=== PATIENT | male | born 1940 | race Caucasian/White ===

== ENCOUNTER 2016-07-03 06:42 | Day surgery (SDC) | payer MEDICARE, BC ==
[2016-07-03] MEDS ORDERED: Lactated Ringers 1,000 ML IV SCH (07:30)
[2016-07-03] MEDS ORDERED: Propofol 200 MG/20 ML SDV ONE (08:20)
[2016-07-03] MEDS ORDERED: fentaNYL 100 MCG/2 ML SDV ONE (08:21)
[2016-07-03 10:31] VITALS: BP 121/70
--- NOTE | 2016-07-04 19:19 | PCM.OPNOTE ---
- General Post-Op/Procedure Note Date of Surgery/Procedure: 07/03/16 Operative Procedure(s): colonoscopy with biopsy Findings: biopsy of polyps at the cecum Pre Op Diagnosis: screening colonoscopy Primary Surgeon: Rajesh Murphy Sr Condition: Good Free Text/Narrative:: Moustapha is a 76-year-old male comes in for a screening colonoscopy. The risks and benefits were explained to him. Anesthesia was given by a nurse clockmaker apprentice. During the procedure use 200 mg of propofol 100 micrograms of fentanyl. The Olympus 180Lscope was used. With a gloved finger in the rectum was examined prostate was nonexistent. The tube was placed into the rectum and advanced under direct vision and we did get to the ileocecal valve. In this area noted all of these were biopsied and pictures were taken. Upon slow retraction of the tube noted no ulceration no abnormality except for small polyp noted at the sigmoid. The tube was removed and the patient tolerated the procedure well. Preop: Screening colonoscopy. Postop: Polyps at the cecum and sigmoid-- biopsy report pending.
== END 2016-07-03 11:00 | disposition home or self-care (01) ==
LOC: JP.SDS 06:42
PROVIDERS: ATTEND Internal Medicine
PROC: 0DBF8ZX Excision of Right Large Intestine, Via Natural or Artificial Opening Endoscopic, Diagnostic (ICD-10-PCS; principal; 2016-07-03)
PROC: 0DBL8ZX Excision of Transverse Colon, Via Natural or Artificial Opening Endoscopic, Diagnostic (ICD-10-PCS; 2016-07-03)
DX: Z12.11 Encounter for screening for malignant neoplasm of colon (principal); D12.3 Benign neoplasm of transverse colon; D12.2 Benign neoplasm of ascending colon
CPT/HCPCS: 45380; J2704; J3010; J7120; 88305

== ENCOUNTER 2018-09-18 14:07 | Emergency (ER) | payer BC, MEDICARE ==
[2018-09-18 14:26] VITALS: BP 112/60
[2018-09-18] MEDS ORDERED: Bacitracin Oint 1 GM U/D Packet TOP ONE (14:35)
--- NOTE | 2018-09-18 14:41 | EDM.PDOC ---
ED HPI GENERAL MEDICAL PROBLEM - General Chief Complaint: Head Injury Stated Complaint: FALL VIA NORTH Time Seen by Provider: 09/18/18 14:25 Source of Information: Reports: Patient, EMS, Family, Old Records, RN History Limitations: Reports: No Limitations - History of Present Illness INITIAL COMMENTS - FREE TEXT/NARRATIVE: 78 yo male with mild dementia who is on warfarin usually uses a walker to get around. Today he tried to use a cane to get from the car to the [employer] and fell backward hitting his head. There was no LOC, neck pain or vomiting. His witnessed the fall and states he is now acting normally for him. Onset: Today Onset Date: 09/18/18 Onset Time: 13:55 Duration: Minutes:, Constant Location: Reports: Head Quality: Reports: Ache Severity: Mild Improves with: Reports: None Worsens with: Reports: None Context: Reports: Trauma Associated Symptoms: Reports: No Other Symptoms Treatments WELDER AND FITTER: Reports: Other (see below) (none) - Related Data Allergies Allergy/AdvReac Type Severity Reaction Status Date / Time rosuvastatin calcium Allergy Cannot Verified 12/27/17 14:08 [From Crestor] Remember Home Meds: Home Meds Aspirin [Ecotrin EC] 325 mg PO DAILY 04/10/15 [History] Cholecalciferol (Vitamin D3) [Vitamin D3] 1,000 unit PO DAILY 04/10/15 [History] Diltiazem [Cardizem] 120 mg PO BID 04/10/15 [History] Furosemide 20 mg PO DAILY 04/10/15 [History] Insulin Glargine,Hum.Rec.Anlog [Lantus Solostar] 30 unit SQ DAILY 04/10/15 [ History] Insulin Lispro [HumaLOG] 14 units SUBCUT TID 04/10/15 [History] Simvastatin [Zocor] 20 mg PO BEDTIME 04/10/15 [History] Spironolact/Hydrochlorothiazid [Spironolactone-HCTZ 25-25] 1 tab PO DAILY [History] Warfarin [Coumadin] 5 mg PO ASDIRECTED 04/10/15 [History] metFORMIN [Glucophage] 850 mg PO BIDMEALS 04/10/15 [History] Metoprolol Tartrate 50 mg PO BID 02/23/18 [History] Nystatin [Nyamyc] 1 dose TOP ASDIRECTED 09/18/18 [History] Oxybutynin Chloride [Oxybutynin Chloride ER] 1 tab PO DAILY 09/18/18 [History] Triamcinolone Acetonide [Triamcinolone Acetonide 0.5%] 1 dose TOP ASDIRECTED [History] Past Medical History HEENT History: Reports: Impaired Vision Cardiovascular History: Reports: CAD, Heart Failure, Pacemaker, Other (See Below ) Other Cardiovascular History: hypotension Gastrointestinal History: Reports: GERD Musculoskeletal History: Reports: Back Pain, Chronic Endocrine/Metabolic History: Reports: Diabetes, Type II, Obesity/BMI 30+ Dermatologic History: Reports: Venous Stasis Dermatitis - Past Surgical History Head Surgeries/Procedures: Reports: None Cardiovascular Surgical History: Reports: Coronary Artery Bypass, Coronary Artery Stent GI Surgical History: Reports: Colonoscopy, Hernia, Inguinal Social & Family History - Tobacco Use Smoking Status *Q: Never Smoker - Caffeine Use Caffeine Use: Reports: Coffee - Recreational Drug Use Recreational Drug Use: No ED ROS GENERAL - Review of Systems Review Of Systems: See Below Constitutional: Reports: No Symptoms HEENT: Reports: No Symptoms Respiratory: Reports: No Symptoms Cardiovascular: Reports: No Symptoms Endocrine: Reports: No Symptoms GI/Abdominal: Reports: No Symptoms : Reports: No Symptoms Musculoskeletal: Reports: No Symptoms Skin: Reports: Wound (T shaped laceration with a small hematoma at the occiput. ) Neurological: Reports: Confusion (not any worse than usual), Headache (mild ), Difficulty Walking (chronic), Gait Disturbance (chronic) Psychiatric: Reports: No Symptoms ED EXAM, HEAD INJURY - Physical Exam Exam: See Below Exam Limited By: No Limitations General Appearance: Alert, WD/WN, No Apparent Distress, Obese Head: Normocephalic, Scalp Lacerations (T shaped at occiput), Scalp Swelling ( minimal), Scalp Hematoma (small at occiput), Scalp Tenderness (mild). No: Scalp Ecchymosis, Active Bleeding, Garnica's Sign, Facial Ecchymosis, Facial Lacerations, Facial Swelling, Sinus Tenderness, Facial Tenderness, Raccoon Eyes Nexus Criteria: No: Posterior, Midline Cervical Tenderness, Evidence of Intoxication, Focal Neurological Deficit Eyes: Bilateral Eye: Normal Inspection, PERRL Ears: Normal External Exam, Normal Canal, Hearing Grossly Normal, Normal TMs Nose: Normal Inspection, No Blood Throat/Mouth: Normal Inspection, Normal Lips, Normal Oropharynx, Normal Voice, No Airway Compromise Neck: Non-Tender, Full Range of Motion Respiratory: No Respiratory Distress, Lungs Clear, Normal Breath Sounds, No Accessory Muscle Use Cardiovascular: Regular Rate, Rhythm, No Edema GI/Abdominal Exam: Normal Bowel Sounds, Soft, Non-Tender, No Distention Back Exam: Normal Inspection Extremities: Normal Inspection, Normal Range of Motion, Non-Tender, No Pedal Edema Neurologic: fur glosser II-XII nml As Tested, No Motor/Sensory Deficits, Alert, Normal Mood/Affect, Oriented x 3 Skin: Normal Color, Warm/Dry, Other (No currrent occipital bleeding. Wound edges well approximated. ) - Michelle Coma Score Best Eye Response (Michelle): (4) Open Spontaneously Best Verbal Response ([place]): (5) Oriented Best Motor Response ([place]): (6) Obeys Commands Michelle Total: 15 Course - Vital Signs Text/Narrative:: Wound cleaned by nursing and a dressing applied. Adacel IM given. Last Recorded V/S: Last Vital Signs Temp 36.3 C 09/18/18 14:28 Pulse 72 09/18/18 14:28 Resp 14 09/18/18 14:28 BP 112/60 09/18/18 14:28 Pulse Ox 93 L 09/18/18 14:28 - Orders/Labs/Meds Labs: Laboratory Tests 09/18/18 Range/Units 14:09 PT 34.4 H (9.5-12.0) sec INR 3.35 H (0.80-1.20) Meds: Medications Discontinued Medications Generic Name Dose Route Start Last Admin Trade Name Rafaelq PRN Reason Stop Dose Admin Bacitracin 1 dose 09/18/18 14:35 Bacitracin Oint 1 Gm TOP 09/18/18 14:36 ONETIME ONE Departure - Departure Time of Disposition: 15:05 Disposition: Home, Self-Care 01 Condition: Fair Clinical Impression: Fall in elderly patient Occipital scalp laceration Qualifiers: Encounter type: initial encounter Qualified Code(s): S01.01XA - Laceration without foreign body of scalp, initial encounter - Discharge Information *PRESCRIPTION DRUG MONITORING PROGRAM REVIEWED*: No *COPY OF PRESCRIPTION DRUG MONITORING REPORT IN PATIENT MELODY: No Referrals: Rajesh Mruphy Sr, MD [Primary Care Provider] - Forms: ED Department Discharge Additional Instructions: Clean wound twice daily with 1/2 water and 1/2 peroxide. Dry. Apply antibiotic ointment and a new dressing. Recheck as needed.
== END 2018-09-18 15:17 | disposition home or self-care (01) ==
LOC: JP.ED 14:07
DX: S01.01XA Laceration without foreign body of scalp, initial encounter (principal); E11.9 Type 2 diabetes mellitus without complications; I50.9 Heart failure, unspecified; K21.9 Gastro-esophageal reflux disease without esophagitis; Z79.82 Long term (current) use of aspirin; Z79.01 Long term (current) use of anticoagulants; Z79.899 Other long term (current) drug therapy; Z79.4 Long term (current) use of insulin; W19.XXXA Unspecified fall, initial encounter
CPT/HCPCS: 36415; 85610; 99283

== ENCOUNTER 2019-05-06 14:51 | Emergency (ER) | payer MEDICARE ==
[2019-05-06] MEDS ORDERED: Acetaminophen 325 MG Tab PO ONE (15:45)
--- NOTE | 2019-05-06 15:48 | EDM.PDOC ---
ED HPI GENERAL MEDICAL PROBLEM - General Chief Complaint: General Stated Complaint: HEART ISSUES Time Seen by Provider: 05/06/19 15:39 Source of Information: Reports: Patient, Family, RN Notes Reviewed History Limitations: Reports: No Limitations - History of Present Illness INITIAL COMMENTS - FREE TEXT/NARRATIVE: 79-year-old gentleman presents the emergency department a complaint of right shoulder pain, he does a history of diabetes mellitus type 2 coronary artery disease and history of CVA with right sided foot weakness he does have long- term care at home. He was trying to get into the shower with the help of the home health aide when he was reaching for the grab bar missed and then fell to the ground hitting his right shoulder. He denies any loss of consciousness or head injury denies pain anywhere else denies shortness of breath or chest pain. EMS initially arrived evaluation felt he was somewhat hypotensive however his blood pressure did respond by the time he arrives at the emergency department, he has a paced rhythm Right Shoulder Pain Score (Numeric/FACES): 2 - Related Data Allergies Allergy/AdvReac Type Severity Reaction Status Date / Time rosuvastatin calcium Allergy Cannot Verified 05/06/19 15:04 [From Crestid] Remember Home Meds: Home Meds Cholecalciferol (Vitamin D3) [Vitamin D3] 1,000 unit PO DAILY 04/10/15 [History] Furosemide 20 mg PO DAILY 04/10/15 [History] Simvastatin [Zocor] 20 mg PO BEDTIME 04/10/15 [History] Spironolact/Hydrochlorothiazid [Spironolactone-HCTZ 25-25] 1 tab PO DAILY [History] metFORMIN [Glucophage] 850 mg PO BIDMEALS 04/10/15 [History] Metoprolol Tartrate 25 mg PO BID 02/23/18 [History] Apixaban [Eliquis] 1 tab PO BID 05/06/19 [History] Insulin Glargine,Hum.Rec.Anlog [Lantus Solostar] 36 units SUBCUT BEDTIME [History] Insulin Lispro [HumaLOG] 1 unit SUBCUT ASDIRECTED 05/06/19 [History] Past Medical History HEENT History: Reports: Impaired Vision Cardiovascular History: Reports: CAD, Heart Failure, Pacemaker, Other (See Below ) Other Cardiovascular History: hypotension Gastrointestinal History: Reports: GERD Musculoskeletal History: Reports: Back Pain, Chronic Neurological History: Reports: CVA (Deficit right side and speech) Endocrine/Metabolic History: Reports: Diabetes, Type II, Obesity/BMI 30+ Dermatologic History: Reports: Venous Stasis Dermatitis - Past Surgical History Cardiovascular Surgical History: Reports: Coronary Artery Bypass, Coronary Artery Stent GI Surgical History: Reports: Colonoscopy, Hernia, Inguinal Social & Family History - Tobacco Use Smoking Status *Q: Unknown Ever Smoked - Caffeine Use Caffeine Use: Reports: Coffee - Recreational Drug Use Recreational Drug Use: No ED ROS GENERAL - Review of Systems Review Of Systems: See Below Constitutional: Reports: No Symptoms HEENT: Reports: No Symptoms Respiratory: Reports: No Symptoms Cardiovascular: Reports: No Symptoms GI/Abdominal: Reports: No Symptoms Musculoskeletal: Reports: Shoulder Pain Neurological: Reports: No Symptoms ED EXAM, GENERAL - Physical Exam Exam: See Below Free Text/Narrative:: Examination of the right shoulder I do not appreciate any erythema there is no edema there is no bruising noted radial pulses +2 he does complain of tenderness with passive abduction of the right shoulder I cannot elicit any tenderness to point palpation Exam Limited By: No Limitations General Appearance: Alert, WD/WN, No Apparent Distress Respiratory/Chest: No Respiratory Distress, Lungs Clear, Normal Breath Sounds, No Accessory Muscle Use, Chest Non-Tender Cardiovascular: Regular Rate, Rhythm, No Murmur GI/Abdominal: Soft, Non-Tender Course - Vital Signs Last Recorded V/S: Last Vital Signs Temp 94.9 F L 05/06/19 14:55 Pulse 83 05/06/19 15:48 Resp 24 H 05/06/19 15:48 BP 123/48 L 05/06/19 15:48 Pulse Ox 94 L 05/06/19 15:48 - Orders/Labs/Meds Orders: Active Orders 24 hr Category Date Time Status Shoulder Comp Rt [CR] Stat Exams 05/06/19 15:45 Ordered Meds: Medications Discontinued Medications Generic Name Dose Route Start Last Admin Trade Name Freq PRN Reason Stop Dose Admin Acetaminophen 650 mg 05/06/19 15:45 05/06/19 16:31 Tylenol PO 05/06/19 15:46 650 mg NOW ONE Administration Departure - Departure Time of Disposition: 16:55 Disposition: Home, Self-Care 01 Condition: Fair Clinical Impression: Contusion of right shoulder Qualifiers: Encounter type: initial encounter Qualified Code(s): S40.011A - Contusion of right shoulder, initial encounter - Discharge Information Referrals: PCP,None [Primary Care Provider] - Forms: ED Department Discharge Additional Instructions: Use Tylenol or Motrin as needed for pain control use hydrocodone for breakthrough pain, please followup with your primary care provider in 3-5 days if not better, please call return to the emergency department with worsening of symptoms. Sepsis Event Note - Evaluation Sepsis Screening Result: No Definite Risk - Focused Exam Vital Signs: Vital Signs Temp Pulse Resp BP Pulse Ox 05/06/19 15:48 83 24 H 123/48 L 94 L 05/06/19 15:16 77 19 123/53 L 95 05/06/19 14:55 94.9 F L 103 H 26 H 128/52 L 96 05/06/19 14:52 94.9 F L 103 H 26 H 128/52 L 96 Date Exam was Performed: 05/06/19 Time Exam was Performed: 16:54 - My Orders Last 24 Hours: My Active Orders 05/06/19 15:45 Shoulder Comp Rt [CR] Stat - Assessment/Plan Last 24 Hours: My Active Orders 05/06/19 15:45 Shoulder Comp Rt [CR] Stat Plan: Assessment Acuity = acute Site and laterality = right shoulder contusion Etiology = secondary to fall Manifestations = none Location of injury = Home Lab values = shoulder x-ray I did review films myself I cannot appreciate any acute process, the official read from radiology is pending Plan I did review x-ray films with him he had good improvement with the Tylenol provided discharge home with hydrocodone 5/325 1 tab p.o. 3 times daily PRN total #10 have him follow-up with his primary care in the next 3 to 5 days for reevaluation This note was dictated using [employer] voice recognition software please call with any questions on syntax or grammar.
[2019-05-06 15:49] VITALS: BP 123/48; PULSE 83
--- NOTE | 2019-05-07 08:44 | CR ---
Shoulder Comp Rt CLINICAL HISTORY: Pain, fall FINDINGS: There is no acute fracture or dislocation in the right shoulder. There is some spurring at the AC joint. There is some osteoarthritic change in the glenohumeral joint. Impression: No fracture or dislocation Osteoarthritic change
== END 2019-05-06 17:28 | disposition home or self-care (01) ==
LOC: JP.ED 14:51
DX: S40.011A Contusion of right shoulder, initial encounter (principal); I25.10 Atherosclerotic heart disease of native coronary artery without angina pectoris; I50.9 Heart failure, unspecified; E11.9 Type 2 diabetes mellitus without complications; E66.9 Obesity, unspecified; I69.341 Monoplegia of lower limb following cerebral infarction affecting right dominant side; I69.328 Other speech and language deficits following cerebral infarction; Z79.4 Long term (current) use of insulin; Z79.899 Other long term (current) drug therapy; W01.10XA Fall on same level from slipping, tripping and stumbling with subsequent striking against unspecified object, initial encounter; Y92.009 Unspecified place in unspecified non-institutional (private) residence as the place of occurrence of the external cause
CPT/HCPCS: 73030; 99284; A9270; 99283

== ENCOUNTER 2019-06-09 16:29 | Observation (INO) | payer MEDICARE ==
--- NOTE | 2019-06-09 16:55 | CRLCT ---
INDICATION: Fall, head trauma TECHNIQUE: Head CT without contrast. COMPARISON: February 23, 2018 FINDINGS: CSF spaces: Within normal limits for age. Brain parenchyma: There are nonspecific low attenuation white matter changes consistent with chronic microvascular disease. No sign of mass, hemorrhage, or midline shift. Old encephalomalacia in the left parietal occipital region. Skull base and calvarium: The visualized paranasal sinuses and mastoid air cells demonstrate no acute or significant findings. The visualized orbits are grossly unremarkable. No skull fractures. There is intracranial atherosclerosis. IMPRESSION: 1. No acute findings. 2. Nonspecific white matter disease, typical of chronic microvascular disease. Please note that all CT scans at this facility use dose modulation, iterative reconstruction, and/or weight-based dosing when appropriate to reduce radiation dose to as low as reasonably achievable. Dictated by Edyta Handy MD @ Jun 09 2019 4:51PM Signed by Dr. Edyta Handy @ Jun 09 2019 4:54PM
--- NOTE | 2019-06-09 18:00 | EDM.PDOC ---
ED HPI GENERAL MEDICAL PROBLEM - General Chief Complaint: Neuro Symptoms/Deficits Stated Complaint: ACCIDENT VIA NORTH Time Seen by Provider: 06/09/19 16:55 Source of Information: Reports: Patient, EMS, Family History Limitations: Reports: No Limitations - History of Present Illness INITIAL COMMENTS - FREE TEXT/NARRATIVE: pt arrived with a history of multiple falls. He fell today and there was concern because he was started on elequist 2 weeks ago. He has had a previous stroke that happened avout 1 year sgo. he was affected on the left side. Pt was noted to have a facial droop and he was slurring his speech. He always has some slurring but this is worse. Duration: Hour(s): Location: Reports: Head Associated Symptoms: Reports: Headaches, Other ( slurrd speech and a facial droop. ) - Related Data Allergies Allergy/AdvReac Type Severity Reaction Status Date / Time rosuvastatin calcium Allergy Cannot Verified 05/06/19 15:04 [From [facility]] Remember Home Meds: Home Meds Cholecalciferol (Vitamin D3) [Vitamin D3] 1,000 unit PO DAILY 04/10/15 [History] Furosemide 20 mg PO DAILY 04/10/15 [History] Simvastatin [Zocor] 20 mg PO BEDTIME 04/10/15 [History] Spironolact/Hydrochlorothiazid [Spironolactone-HCTZ 25-25] 1 tab PO DAILY [History] metFORMIN [Glucophage] 850 mg PO BIDMEALS 04/10/15 [History] Metoprolol Tartrate 25 mg PO BID 02/23/18 [History] Apixaban [Eliquis] 1 tab PO BID 05/06/19 [History] Insulin Glargine,Hum.Rec.Anlog [Lantus Solostar] 36 units SUBCUT BEDTIME [History] Insulin Lispro [HumaLOG] 1 unit SUBCUT ASDIRECTED 05/06/19 [History] Past Medical History HEENT History: Reports: Impaired Vision Cardiovascular History: Reports: CAD, Heart Failure, Pacemaker, Other (See Below ) Other Cardiovascular History: hypotension Gastrointestinal History: Reports: GERD Musculoskeletal History: Reports: Back Pain, Chronic Neurological History: Reports: CVA Endocrine/Metabolic History: Reports: Diabetes, Type II, Obesity/BMI 30+ Dermatologic History: Reports: Venous Stasis Dermatitis - Past Surgical History Cardiovascular Surgical History: Reports: Coronary Artery Bypass, Coronary Artery Stent GI Surgical History: Reports: Colonoscopy, Hernia, Inguinal Social & Family History - Tobacco Use Smoking Status *Q: Never Smoker - Caffeine Use Caffeine Use: Reports: Coffee, Soda - Recreational Drug Use Recreational Drug Use: No ED ROS GENERAL - Review of Systems Review Of Systems: See Below Constitutional: Reports: No Symptoms HEENT: Reports: No Symptoms Respiratory: Reports: Cough Cardiovascular: Reports: No Symptoms GI/Abdominal: Reports: No Symptoms : Reports: No Symptoms Musculoskeletal: Reports: No Symptoms Skin: Reports: No Symptoms Neurological: Reports: Other (slurred speech and a fscial droop. ) Psychiatric: Reports: No Symptoms - Physical Exam Exam: See Below Text/Narrative:: pt arrived with a history of a fall and after the fall his speech was slurred and he had a facial droop. He has had a previou stroke which caused rt sided weakness. He was switched to elequist recently. Exam Limited By: No Limitations General Appearance: Alert, No Apparent Distress, Anxious, Other (pupils are equal and reactive. ) Ears: Normal TMs Nose: Normal Inspection Throat/Mouth: Normal Inspection Head Exam: Atraumatic, Other ( there is no aparicio or hematoma on the head) Neck: Normal Inspection Respiratory/Chest: No Respiratory Distress Cardiovascular: Regular Rate, Rhythm GI/Abdominal: Soft, Non-Tender (Male) Exam: Normal Inspection Rectal (Males) Exam: Deferred Neuro Exam (Abbreviated): Alert, Oriented, Normal Cognition, Other ( slurred speech and possible facial dropping) Course - Vital Signs Last Recorded V/S: Last Vital Signs Temp 36.6 C 06/10/19 03:00 Pulse 70 06/10/19 03:00 Resp 18 06/10/19 03:00 BP 129/60 06/10/19 03:00 Pulse Ox 98 06/10/19 03:00 - Orders/Labs/Meds Orders: Active Orders 24 hr Category Date Time Status UA W/MICROSCOPIC [URIN] Urgent Lab 06/09/19 16:34 Ordered Medication Orders Acetaminophen (Tylenol) 650 mg PO Q4H PRN PRN Reason: Pain (Mild 1-3)/fever Apixaban (Eliquis) 2.5 mg PO BID [place] Last Admin: 06/09/19 22:18 Dose: 2.5 mg Dextrose (Glutose 15) 15 gm PO ONETIME PRN PRN Reason: Hypoglycemia Dextrose/Water (Dextrose 50% In Water) 50 ml IV ONETIME PRN PRN Reason: Hypoglycemia Furosemide (Lasix) 20 mg PO DAILY [facility] Hydrochlorothiazide (Hydrochlorothiazide) 25 mg PO DAILY [facility] Sodium Chloride (Normal Saline) 1,000 mls @ 75 mls/hr IV ASDIRECTED [facility] Last Admin: 06/10/19 00:36 Dose: 75 mls/hr Insulin Glargine (Lantus Solostar) 36 units SUBCUT BEDTIME [facility] Last Admin: 06/09/19 22:18 Dose: 36 units Insulin Human Lispro (Humalog) 0 unit SUBCUT QIDACANDBED [facility]; Protocol Last Admin: 06/09/19 22:09 Dose: Not Given Metformin HCl (Glucophage) 850 mg PO BIDMEALS [facility] Metoprolol Tartrate (Lopressor) 25 mg PO BID [facility] Last Admin: 06/09/19 22:10 Dose: 25 mg Ondansetron HCl (Zofran) 4 mg IV Q4H PRN PRN Reason: Nausea/Vomiting Polyethylene Glycol (Miralax) 17 gm PO DAILY PRN PRN Reason: Constipation Simvastatin (Zocor) 20 mg PO BEDTIME [facility] Last Admin: 06/09/19 22:10 Dose: 20 mg Sodium Chloride (Saline Flush) 10 ml FLUSH ASDIRECTED PRN PRN Reason: Keep Vein Open Spironolactone (Aldactone) 25 mg PO DAILY [facility] Labs: Laboratory Tests 06/09/19 06/09/19 Range/Units 16:47 16:47 WBC 10.5 (4.5-11.0) K/uL RBC 5.66 (4.30-5.90) M/uL Hgb 15.6 H (12.0-15.0) g/dL Hct 48.5 (40.0-54.0) % MCV 86 (80-98) fL MCH 28 (27-31) pg MCHC 32 (32-36) % Plt Count 232 (150-400) K/uL Neut % (Auto) 71 H (36-66) % Lymph % (Auto) 18 L (24-44) % [place] % (Auto) 8 H (2-6) % Eos % (Auto) 2 (2-4) % Baso % (Auto) 0 (0-1) % Sodium 138 L (140-148) mmol/L Potassium 3.7 (3.6-5.2) mmol/L Chloride 100 (100-108) mmol/L Carbon Dioxide 30 (21-32) mmol/L Anion Gap 11.7 (5.0-14.0) mmol/L BUN 19 H (7-18) mg/dL Creatinine 1.3 (0.8-1.3) mg/dL Est Cr Clr Drug Dosing 44.58 mL/min Estimated GFR (MDRD) 53 L (>60) Glucose 159 H (74-106) mg/dL Calcium 9.3 (8.5-10.1) mg/dL Total Bilirubin 0.5 (0.2-1.0) mg/dL AST 17 (15-37) U/L ALT 14 (12-78) U/L Alkaline Phosphatase 71 (46-116) U/L Total Protein 7.2 (6.4-8.2) g/dL Albumin 3.4 (3.4-5.0) g/dL Globulin 3.8 H (2.3-3.5) g/dL Albumin/Globulin Ratio 0.9 L (1.2-2.2) Meds: Medications Generic Name Dose Route Start Last Admin Trade Name Freq PRN Reason Stop Dose Admin Acetaminophen 650 mg 06/09/19 19:27 Tylenol PO Q4H PRN Pain (Mild 1-3)/fever Apixaban 2.5 mg 06/09/19 21:00 06/09/19 22:18 Eliquis PO 2.5 mg BID [place] Administration Dextrose 15 gm 06/09/19 19:27 Glutose 15 PO ONETIME PRN Hypoglycemia Dextrose/Water 50 ml 06/09/19 19:27 Dextrose 50% In Water IV ONETIME PRN Hypoglycemia Furosemide 20 mg 06/10/19 09:00 Lasix PO DAILY [place] Hydrochlorothiazide 25 mg 06/10/19 09:00 Hydrochlorothiazide PO DAILY [place] Sodium Chloride 1,000 mls @ 75 mls/hr 06/09/19 19:27 06/10/19 00:36 Normal Saline IV 75 mls/hr ASDIRECTED [place] Administration Insulin Glargine 36 units 06/09/19 21:00 06/09/19 22:18 Lantus Solostar SUBCUT 36 units BEDTIME [place] Administration Insulin Human Lispro 0 unit 06/09/19 20:00 06/09/19 22:09 Humalog SUBCUT Not Given QIDACANDBED [facility] Protocol Metformin HCl 850 mg 06/10/19 08:00 Glucophage PO BIDMEALS [facility] Metoprolol Tartrate 25 mg 06/09/19 21:00 06/09/19 22:10 Lopressor PO 25 mg BID [place] Administration Ondansetron HCl 4 mg 06/09/19 19:27 Zofran IV Q4H PRN Nausea/Vomiting Polyethylene Glycol 17 gm 06/09/19 19:27 Miralax PO DAILY PRN Constipation Simvastatin 20 mg 06/09/19 21:00 06/09/19 22:10 Zocor PO 20 mg BEDTIME [place] Administration Sodium Chloride 10 ml 06/09/19 19:27 Saline Flush FLUSH ASDIRECTED PRN Keep Vein Open Spironolactone 25 mg 06/10/19 09:00 Aldactone PO DAILY [place] Discontinued Medications Generic Name Dose Route Start Last Admin Trade Name Rafaelq PRN Reason Stop Dose Admin Non-Formulary Medication 1 tab 06/10/19 09:00 Spironolact/Hydrochlorothiazid [Spironolactone-Hctz 25-25] PO DAILY [place] - Re-Assessments/Exams Free Text/Narrative Re-Assessment/Exam: 06/10/19 07:22 cat scan of the head was neg for acute findings. His lab work did not show any marked changes. 06/10/19 07:22 Departure - Departure Time of Disposition: 06:00 Disposition: Admitted As Inpatient 66 Condition: Fair Clinical Impression: Slurring of speech, Facial droop, Cerebral arteriosclerosis with history of previous cerebrovascular accident - Discharge Information Sepsis Event Note - Evaluation Sepsis Screening Result: No Definite Risk - Focused Exam Date Exam was Performed: 06/10/19 Time Exam was Performed: 07:24 - My Orders Last 24 Hours: My Active Orders 06/09/19 16:34 UA W/MICROSCOPIC [URIN] Urgent - Assessment/Plan Last 24 Hours: My Active Orders 06/09/19 16:34 UA W/MICROSCOPIC [URIN] Urgent
--- NOTE | 2019-06-09 18:18 | PCM.HP.2 ---
H&P History of Present Illness - General Date of Service: 06/09/19 Admit Problem/Dx: Admission Diagnosis/Problem Admission Diagnosis/Problem Weakness Source of Information: Patient, Family, Provider, RN Notes Reviewed History Limitations: Reports: No Limitations - History of Present Illness Initial Comments - Free Text/Narative: Mr. Rushing is a 79-year-old gentleman who is admitted to observation status through the emergency department after experiencing transient right leg weakness and a fall earlier today. He has a known history of cerebrovascular disease and is status post previous CVA with residual right leg weakness. He told his earlier today that he was unable to feel his feet and when he attempted to get up midafternoon his right leg would not work as it usually does and he experienced a fall. CT scan of the head without contrast in the emergency department shows no acute abnormalities. On motor strength testing he has very mild weakness in the right leg which he says is baseline. No other weakness or cranial nerve abnormalities identified. No evidence of underlying infection or significant metabolic abnormalities. - Related Data Allergies/Adverse Reactions: Allergies Allergy/AdvReac Type Severity Reaction Status Date / Time rosuvastatin calcium Allergy Cannot Verified 05/06/19 15:04 [From Crestor] Remember Home Medications: Home Meds Cholecalciferol (Vitamin D3) [Vitamin D3] 1,000 unit PO DAILY 04/10/15 [History] Furosemide 20 mg PO DAILY 04/10/15 [History] Simvastatin [Zocor] 20 mg PO BEDTIME 04/10/15 [History] Spironolact/Hydrochlorothiazid [Spironolactone-HCTZ 25-25] 1 tab PO DAILY [History] metFORMIN [Glucophage] 850 mg PO BIDMEALS 04/10/15 [History] Metoprolol Tartrate 25 mg PO BID 02/23/18 [History] Apixaban [Eliquis] 1 tab PO BID 05/06/19 [History] Insulin Glargine,Hum.Rec.Anlog [Lantus Solostar] 36 units SUBCUT BEDTIME [History] Insulin Lispro [HumaLOG] 1 unit SUBCUT ASDIRECTED 05/06/19 [History] Past Medical History HEENT History: Reports: Impaired Vision Cardiovascular History: Reports: CAD, Heart Failure, Pacemaker, Other (See Below ) Other Cardiovascular History: hypotension Gastrointestinal History: Reports: GERD Musculoskeletal History: Reports: Back Pain, Chronic Neurological History: Reports: CVA Endocrine/Metabolic History: Reports: Diabetes, Type II, Obesity/BMI 30+ Dermatologic History: Reports: Venous Stasis Dermatitis - Past Surgical History Cardiovascular Surgical History: Reports: Coronary Artery Bypass, Coronary Artery Stent GI Surgical History: Reports: Colonoscopy, Hernia, Inguinal Social & Family History - Tobacco Use Smoking Status *Q: Never Smoker - Caffeine Use Caffeine Use: Reports: Coffee, Soda - Recreational Drug Use Recreational Drug Use: No H&P Review of Systems - Review of Systems: Review Of Systems: See Below General: Reports: Weakness. Denies: Fever, Chills, Malaise HEENT: Reports: No Symptoms Pulmonary: Reports: No Symptoms Cardiovascular: Reports: No Symptoms Gastrointestinal: Reports: No Symptoms Genitourinary: Reports: No Symptoms Musculoskeletal: Reports: No Symptoms Skin: Reports: No Symptoms Psychiatric: Reports: No Symptoms Neurological: Reports: Pre-Existing Deficit, Difficulty Walking, Weakness ( Episode of increased right leg weakness occurring earlier this afternoon). Denies: Confusion, Dizziness, Headache, Numbness, Paresthesia, Trouble Speaking , Change in Speech Hematologic/Lymphatic: Reports: No Symptoms Immunologic: Reports: No Symptoms Exam - Exam Exam: See Below - Vital Signs Vital Signs: Last Vital Signs Temp 96.8 F L 06/09/19 16:47 Pulse 78 06/09/19 17:41 Resp 20 06/09/19 17:41 BP 139/75 06/09/19 17:41 Pulse Ox 97 06/09/19 17:41 Weight: 250 lb - Exam Quality Assessment: DVT Prophylaxis General: Alert, Oriented, Cooperative HEENT: Conjunctiva Clear, Hearing Intact, Mucosa Moist & [place], Normal Nasal Septum, Posterior Pharynx Clear, Pupils Equal Neck: Supple, Trachea Midline, +2 Carotid Pulse wo Bruit Lungs: Clear to Auscultation, Normal Respiratory Effort Cardiovascular: Regular Rate, Normal S1, Normal S2, Irregular Rhythm. No: Systolic Murmur, Diastolic Murmur GI/Abdominal Exam: Soft, Non-Tender, No Organomegaly, No Distention Extremities: Non-Tender, Pedal Edema Skin: Warm, Dry, Intact Neurological: Cranial Nerves Intact, Normal Speech, Normal Tone, Sensation Intact, Focal Deficit (Mild right lower extremity weakness which is chronic) Neuro Extensive - Mental Status: Alert, Oriented x3, Normal Mood/Affect, Normal Cognition, Memory Intact - Patient Data Lab Results Last 24 hrs: Laboratory Results - last 24 hr 06/09/19 06/09/19 Range/Units 16:47 16:47 WBC 10.5 (4.5-11.0) K/uL RBC 5.66 (4.30-5.90) M/uL Hgb 15.6 H (12.0-15.0) g/dL Hct 48.5 (40.0-54.0) % MCV 86 (80-98) fL MCH 28 (27-31) pg MCHC 32 (32-36) % Plt Count 232 (150-400) K/uL Neut % (Auto) 71 H (36-66) % Lymph % (Auto) 18 L (24-44) % [place] % (Auto) 8 H (2-6) % Eos % (Auto) 2 (2-4) % Baso % (Auto) 0 (0-1) % Sodium 138 L (140-148) mmol/L Potassium 3.7 (3.6-5.2) mmol/L Chloride 100 (100-108) mmol/L Carbon Dioxide 30 (21-32) mmol/L Anion Gap 11.7 (5.0-14.0) mmol/L BUN 19 H (7-18) mg/dL Creatinine 1.3 (0.8-1.3) mg/dL Est Cr Clr Drug Dosing 44.58 mL/min Estimated GFR (MDRD) 53 L (>60) Glucose 159 H (74-106) mg/dL Calcium 9.3 (8.5-10.1) mg/dL Total Bilirubin 0.5 (0.2-1.0) mg/dL AST 17 (15-37) U/L ALT 14 (12-78) U/L Alkaline Phosphatase 71 (46-116) U/L Total Protein 7.2 (6.4-8.2) g/dL Albumin 3.4 (3.4-5.0) g/dL Globulin 3.8 H (2.3-3.5) g/dL Albumin/Globulin Ratio 0.9 L (1.2-2.2) Result Diagrams: 06/09/19 16:47 06/09/19 16:47 Sepsis Event Note - Evaluation Sepsis Screening Result: No Definite Risk - Focused Exam Vital Signs: Vital Signs Temp Pulse Resp BP Pulse Ox 06/09/19 17:41 78 20 139/75 97 06/09/19 17:05 76 13 139/70 97 06/09/19 16:47 96.8 F L 83 24 H 127/74 95 06/09/19 16:41 96.8 F L 83 24 H 127/74 95 Date Exam was Performed: 06/09/19 Time Exam was Performed: 18:11 *Q Meaningful Use (ADM) - VTE *Q VTE Pharmacological Contraindications *Q: High INR Value - VTE Risk Assess *Q Each Risk Factor Represents 1 Point: Obesity ( BMI > 25 kg/m2) Total Score 1 Point Risk Factors: 1 Each Risk Factor Represents 2 Points: None Total Score 2 Point Risk Factors: 0 Each Risk Factor Represents 3 Points: Age 75 Years or Greater Total Score 3 Point Risk Factors: 3 Each Risk Factor Represents 5 Points: None Total Score 5 Point Risk Factors: 0 Venous Thromboembolism Risk Factor Score *Q: 4 Problem List Initiated/Reviewed/Updated: Yes Orders Last 24hrs: Active Orders 24 hr Category Date Time Status Patient Status Manage Transfer [TRANSFER] Routine ADT 06/09/19 18:02 Ordered UA W/MICROSCOPIC [URIN] Urgent Lab 06/09/19 16:34 Ordered Resuscitation Status Routine Resus Stat 06/09/19 18:04 Ordered Assessment/Plan Comment:: ASSESSMENT AND PLAN TIA WITH TRANSIENT RIGHT LEG WEAKNESS-previous left CVA with residual right leg weakness. Increased right leg weakness earlier this afternoon causing a fall. CT scan of the head without contrast shows no acute abnormalities specifically no bleed. Neurologic examination at this time is back to baseline. -IV fluids for hydration -Neurochecks every 4 hours -Brain MRI with contrast and MRA of the head in a.m. -Physical therapy consult in a.m. TYPE 2 DIABETES MELLITUS -Continue usual dose of long-acting insulin and metformin -4 times daily glucometers -Low-dose sliding scale Humalog MAINTENANCE ISSUES -DVT prophylaxis; current therapy with Eliquis should provide adequate DVT prophylaxis -GI prophylaxis; not indicated -Olja catheter; not indicated -Nutrition; consistent carb diet -Nicotine dependence; not required CODE STATUS-FULL CODE ADMISSION STATUS-this patient will be admitted to observation status, expect no more than a one night hospital stay for evaluation and management of problems as outlined above. DISPOSITION-anticipate discharge to home after the hospital stay. PRIMARY CARE PROVIDER-Dr. Armando Murphy - Mortality Measure Prognosis:: Good
[2019-06-09] MEDS ORDERED: Sodium Chloride 0.9% 1,000 ML IV SCH (19:27)
[2019-06-09] MEDS ORDERED: Sodium Chloride 0.9% 10 ML Syringe FLUSH PRN (19:27)
[2019-06-09] MEDS ORDERED: Polyethylene Glycol 3350 Powder 17 GM Packet PO PRN (19:27)
[2019-06-09] MEDS ORDERED: Acetaminophen 325 MG Tab PO PRN (19:27)
[2019-06-09] MEDS ORDERED: 50% Dextrose in Water 50 ML Syringe IV PRN (19:27)
[2019-06-09] MEDS ORDERED: Glucose Gel 15 GM in 37.5 GM Tube PO PRN (19:27)
[2019-06-09] MEDS ORDERED: Ondansetron 4 MG/2 ML SDV IV PRN (19:27)
[2019-06-09] MEDS ORDERED: Insulin Glargine,Human Rec. Analog 100 Units/ML 3 ML Pen SUBCUT SCH (21:00)
[2019-06-09] MEDS ORDERED: Metoprolol Tartrate 25 MG Tab PO SCH (21:00)
[2019-06-09] MEDS ORDERED: Apixaban 2.5 MG Tab PO SCH (21:00)
[2019-06-09] MEDS ORDERED: Simvastatin 20 MG Tab PO SCH (21:00)
[2019-06-09] MEDS: Insulin Lispro 100 Unit/ML 3 ML KwikPen SUBCUT SCH (22:09)
[2019-06-10] MEDS ORDERED: METFORMIN 850 MG PO SCH (08:00)
[2019-06-10] MEDS: Insulin Lispro 100 Unit/ML 3 ML KwikPen SUBCUT SCH ×2 (08:51→13:35)
[2019-06-10] MEDS ORDERED: Hydrochlorothiazide 25 MG Tab PO SCH (09:00)
[2019-06-10] MEDS ORDERED: Spironolactone 25 MG Tab PO SCH (09:00)
[2019-06-10] MEDS ORDERED: Furosemide 20 MG Tab (PTOM) PO SCH (09:00)
[2019-06-10] MEDS ORDERED: Metoprolol Tartrate 50 MG Tab (PTOM) PO SCH (10:00)
[2019-06-10] MEDS ORDERED: Apixaban 2.5 MG Tab (PTOM) PO SCH (10:00)
[2019-06-10] MEDS ORDERED: HYDROCHLOROTHIAZIDE PO SCH (10:00)
[2019-06-10] MEDS ORDERED: SPIRONOLACTONE PO SCH (10:00)
[2019-06-10] MEDS ORDERED: Cholecalciferol (Vitamin D3) 25 MCG Tab (PTOM) PO SCH (10:15)
[2019-06-10 11:02] VITALS: BP 118/57; PULSE 71
[2019-06-10] MEDS ORDERED: Sodium Chloride 0.9% 10 ML Syringe FLUSH ONE (12:42)
[2019-06-10] MEDS ORDERED: Iopamidol 755 Mg/ML 100 ML Bottle IV SCH (12:45)
[2019-06-10] MEDS ORDERED: Sodium Chloride 0.9% 100 ML IV SCH (12:45)
--- NOTE | 2019-06-10 14:45 | PCM.DCSUM1 ---
Discharge Summary - Hospital Course Brief History: Mr. Rushing is a 79-year-old gentleman who was admitted through the emergency department observation status for further evaluation of transient right leg weakness. - Discharge Data Discharge Date: 06/10/19 Discharge Disposition: Home, W Home Health Agency 06 Condition: Good - Referral to Home Health Date of Face to Face Encounter: 06/10/19 Reason for Homebound Status: Weakness, history of previous CVA Primary Care Physician: Rajesh Murphy Sr, MD Skilled Need: Home physical therapy and Occupational Therapy - Discharge Diagnosis/Problem(s) (1) Cerebral arteriosclerosis with history of previous cerebrovascular accident SNOMED Code(s): 39424153 ICD Code: I67.2 - CEREBRAL ATHEROSCLEROSIS; Z86.73 - PRSNL HX OF TIA (TIA), AND CEREB INFRC W/O RESID DEFICITS Status: Acute Current Visit: Yes (2) Type 2 diabetes mellitus SNOMED Code(s): 48299639 ICD Code: E11.9 - TYPE 2 DIABETES MELLITUS WITHOUT COMPLICATIONS Status: Chronic Current Visit: No - Patient Summary/Data Consults: Consultations 06/09/19 19:27 PT Evaluation and Treatment [CONS] Routine Please Evaluate and Treat. PT Reason for Consult: Weakness, recent fall, ? TIA This query below is only for informational purposes and is not editable. Hospital Course: Mr. Rushing is a 79-year-old gentleman who was admitted to observation status through the emergency department after experiencing transient right leg weakness and a fall earlier today. He has a known history of cerebrovascular disease and is status post previous CVA with residual right leg weakness. He told his earlier today that he was unable to feel his feet and when he attempted to get up midafternoon his right leg would not work as it usually does and he experienced a fall. CT scan of the head without contrast in the emergency department shows no acute abnormalities. On motor strength testing he has very mild weakness in the right leg which he says is baseline. No other weakness or cranial nerve abnormalities identified. No evidence of underlying infection or significant metabolic abnormalities. He was given IV fluids through the night. Neurochecks were performed every 4 hours and showed no significant change in neurologic status. On admission MRI of the brain as well as MRA were ordered, we were unable to follow through with these because of his pacemaker. CT scan of the head with contrast as well as CTA of the head were ordered. When seen on rounds the patient was very adamant about being discharged home and not wanting further evaluation. We discussed if he were found to have abnormalities on the CT scan he would not want further aggressive intervention or evaluation. Given this the CT scans were canceled and he will be discharged home for ongoing care with home care services as well as home PT and OT. Activity will be as tolerated and he will be on a diabetic low-sodium diet. Follow-up appointment will be scheduled with his primary care provider, Dr. Murphy, within 1 week. - Patient Instructions Diet: Low Sodium, Diabetic Diet Activity: As Tolerated Other/Special Instructions: Please schedule follow-up appointment with Dr. Murphy within 1 week. Please arrange for home care services including home physical therapy and occupational therapy after discharge. - Discharge Plan *PRESCRIPTION DRUG MONITORING PROGRAM REVIEWED*: Not Applicable *COPY OF PRESCRIPTION DRUG MONITORING REPORT IN PATIENT MELODY: Not Applicable Home Medications: Home Meds Cholecalciferol (Vitamin D3) [Vitamin D3] 1,000 unit PO DAILY 04/10/15 [History] Furosemide 20 mg PO DAILY 04/10/15 [History] Simvastatin [Zocor] 20 mg PO BEDTIME 04/10/15 [History] Spironolact/Hydrochlorothiazid [Spironolactone-HCTZ 25-25] 1 tab PO DAILY [History] metFORMIN [Glucophage] 850 mg PO BIDMEALS 04/10/15 [History] Metoprolol Tartrate 25 mg PO BID 02/23/18 [History] Apixaban [Eliquis] 1 tab PO BID 05/06/19 [History] Insulin Glargine,Hum.Rec.Anlog [Lantus Solostar] 36 units SUBCUT BEDTIME [History] Insulin Lispro [HumaLOG] 1 unit SUBCUT ASDIRECTED 05/06/19 [History] Referrals: Rajesh Murphy Sr, MD [Primary Care Provider] - - Discharge Summary/Plan Comment DC Time >30 min.: No - Patient Data Vitals - Most Recent: Last Vital Signs Temp 97.0 F 06/10/19 11:00 Pulse 71 06/10/19 11:00 Resp 18 06/10/19 11:00 BP 118/57 L 06/10/19 11:00 Pulse Ox 100 06/10/19 11:00 Weight - Most Recent: 251 lb 12.8 oz I&O - Last 24 hours: Intake & Output 06/09/19 06/10/19 06/10/19 22:59 06:59 14:59 Intake Total 456 034 5674 Balance 613 845 8950 Lab Results - Last 24 hrs: Laboratory Results - last 24 hr 06/09/19 06/09/19 06/10/19 Range/Units 16:47 16:47 06:06 WBC 10.5 10.3 (4.5-11.0) K/uL RBC 5.66 5.38 (4.30-5.90) M/uL Hgb 15.6 H 14.8 (12.0-15.0) g/dL Hct 48.5 46.1 (40.0-54.0) % MCV 86 86 (80-98) fL MCH 28 28 (27-31) pg MCHC 32 32 (32-36) % Plt Count 232 222 (150-400) K/uL Neut % (Auto) 71 H 68 H (36-66) % Lymph % (Auto) 18 L 20 L (24-44) % [place] % (Auto) 8 H 9 H (2-6) % Eos % (Auto) 2 3 (2-4) % Baso % (Auto) 0 0 (0-1) % Sodium 138 L (140-148) mmol/L Potassium 3.7 (3.6-5.2) mmol/L Chloride 100 (100-108) mmol/L Carbon Dioxide 30 (21-32) mmol/L Anion Gap 11.7 (5.0-14.0) mmol/L BUN 19 H (7-18) mg/dL Creatinine 1.3 (0.8-1.3) mg/dL Est Cr Clr Drug Dosing 44.58 mL/min Estimated GFR (MDRD) 53 L (>60) Glucose 159 H (74-106) mg/dL Calcium 9.3 (8.5-10.1) mg/dL Total Bilirubin 0.5 (0.2-1.0) mg/dL AST 17 (15-37) U/L ALT 14 (12-78) U/L Alkaline Phosphatase 71 (46-116) U/L Total Protein 7.2 (6.4-8.2) g/dL Albumin 3.4 (3.4-5.0) g/dL Globulin 3.8 H (2.3-3.5) g/dL Albumin/Globulin Ratio 0.9 L (1.2-2.2) 06/10/19 Range/Units 06:06 WBC (4.5-11.0) K/uL RBC (4.30-5.90) M/uL Hgb (12.0-15.0) g/dL Hct (40.0-54.0) % MCV (80-98) fL MCH (27-31) pg MCHC (32-36) % Plt Count (150-400) K/uL Neut % (Auto) (36-66) % Lymph % (Auto) (24-44) % [place] % (Auto) (2-6) % Eos % (Auto) (2-4) % Baso % (Auto) (0-1) % Sodium 141 (140-148) mmol/L Potassium 3.6 (3.6-5.2) mmol/L Chloride 103 (100-108) mmol/L Carbon Dioxide 29 (21-32) mmol/L Anion Gap 8.8 (5.0-14.0) mmol/L BUN 18 (7-18) mg/dL Creatinine 1.2 (0.8-1.3) mg/dL Est Cr Clr Drug Dosing 48.29 mL/min Estimated GFR (MDRD) 58 L (>60) Glucose 132 H (74-106) mg/dL Calcium 9.1 (8.5-10.1) mg/dL Total Bilirubin (0.2-1.0) mg/dL AST (15-37) U/L ALT (12-78) U/L Alkaline Phosphatase (46-116) U/L Total Protein (6.4-8.2) g/dL Albumin (3.4-5.0) g/dL Globulin (2.3-3.5) g/dL Albumin/Globulin Ratio (1.2-2.2) Med Orders - Current: Current Medications Acetaminophen (Tylenol) 650 mg PO Q4H PRN PRN Reason: Pain (Mild 1-3)/fever Apixaban (Eliquis) 2.5 mg PO BID [place] Last Admin: 06/10/19 10:30 Dose: 2.5 mg Cholecalciferol (Vitamin D3) 25 mcg PO DAILY [facility] Last Admin: 06/10/19 10:30 Dose: 25 mcg Dextrose (Glutose 15) 15 gm PO ONETIME PRN PRN Reason: Hypoglycemia Dextrose/Water (Dextrose 50% In Water) 50 ml IV ONETIME PRN PRN Reason: Hypoglycemia Furosemide (Lasix) 20 mg PO DAILY [facility] Last Admin: 06/10/19 10:29 Dose: 20 mg Sodium Chloride (Normal Saline) 1,000 mls @ 75 mls/hr IV ASDIRECTED [facility] Last Admin: 06/10/19 00:36 Dose: 75 mls/hr Insulin Glargine (Lantus Solostar) 36 units SUBCUT BEDTIME [facility] Last Admin: 06/09/19 22:18 Dose: 36 units Insulin Human Lispro (Humalog) 0 unit SUBCUT QIDACANDBED [facility]; Protocol Last Admin: 06/10/19 13:35 Dose: 12 units Metformin HCl (Glucophage) 850 mg PO BIDMEALS [facility] Last Admin: 06/10/19 10:27 Dose: 850 mg Metoprolol Tartrate (Lopressor) 25 mg PO BID [facility] Last Admin: 06/10/19 10:28 Dose: 25 mg Ondansetron HCl (Zofran) 4 mg IV Q4H PRN PRN Reason: Nausea/Vomiting Spironolact/Hctz (25mg/25mg (Ptom)) 1 each PO DAILY [facility] Last Admin: 06/10/19 10:30 Dose: 1 each Polyethylene Glycol (Miralax) 17 gm PO DAILY PRN PRN Reason: Constipation Simvastatin (Zocor) 20 mg PO BEDTIME [facility] Sodium Chloride (Saline Flush) 10 ml FLUSH ASDIRECTED PRN PRN Reason: Keep Vein Open Discontinued Medications Apixaban (Eliquis) 2.5 mg PO BID [facility] Last Admin: 06/09/19 22:18 Dose: 2.5 mg Sodium Chloride (Normal Saline) 100 mls @ 3 mls/sec IV ASDIRECTED [facility] Stop: 06/10/19 14:00 Iopamidol (Isovue-370 (76%)) 100 ml IV . DIRECTED [facility] Stop: 06/10/19 14:00 Metoprolol Tartrate (Lopressor) 25 mg PO BID [facility] Last Admin: 06/09/19 22:10 Dose: 25 mg Non-Formulary Medication (Spironolact/Hydrochlorothiazid [Spironolactone-Hctz 25 -25]) 1 tab PO DAILY [place] Simvastatin (Zocor) 20 mg PO BEDTIME [place] Last Admin: 06/09/19 22:10 Dose: 20 mg Sodium Chloride (Saline Flush) 10 ml FLUSH ONETIME ONE Stop: 06/10/19 12:43 Last Admin: 06/10/19 13:42 Dose: 10 ml - Exam Quality Assessment: Reports: DVT Prophylaxis General: Reports: Alert, Oriented, Cooperative, No Acute Distress Lungs: Reports: Clear to Auscultation, Normal Respiratory Effort Cardiovascular: Reports: Regular Rate, Regular Rhythm, No Murmurs GI/Abdominal Exam: Soft, Non-Tender, No Organomegaly, No Distention Neurological: Reports: Other (Mild residual right lower extremity weakness, stable from baseline) *Q Meaningful Use (DIS) - VTE *Q VTE Pharmacological Contraindications *Q: High INR Value
[2019-06-10] MEDS ORDERED: Simvastatin 20 MG Tab (PTOM) PO SCH (21:00)
== END 2019-06-10 15:00 | disposition home health service (06) ==
LOC: JP.ED 16:29 → JP.MS 18:02
PROVIDERS: ADMIT Hospitalist; ATTEND Hospitalist
DX: I67.2 Cerebral atherosclerosis (principal); E11.9 Type 2 diabetes mellitus without complications; I50.9 Heart failure, unspecified; E66.9 Obesity, unspecified; Z86.73 Personal history of transient ischemic attack (TIA), and cerebral infarction without residual deficits; Z79.899 Other long term (current) drug therapy; Z79.01 Long term (current) use of anticoagulants; Z79.4 Long term (current) use of insulin; Z88.8 Allergy status to other drugs, medicaments and biological substances; Z68.38 Body mass index [BMI] 38.0-38.9, adult
CPT/HCPCS: 36415; 70450; 80048; 80053; 82962; 85025; 97116; 97162; 99217; 99219; 99285; A9270; G0378; J1815; J7030

== ENCOUNTER 2020-01-22 12:02 | Inpatient (IN) | payer BC, MEDICARE, OTHER ==
[2020-01-22] MEDS ORDERED: Sodium Chloride 0.9% 10 ML Syringe FLUSH PRN (12:07)
--- NOTE | 2020-01-22 12:33 | EDM.PDOC ---
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 The patient was in a skilled care facility for considerable amount of time and went home on hospice. Recently the patient was taken off of hospice so that they could replace the generator of his pacemaker that is currently scheduled to in January 2020. The patient was found unresponsive today and despite being previously on hospice, his wanted him brought into the ED for evaluation. The patient was reported to have a temperature at home of 101.2 F. - Related Data Allergies Allergy/AdvReac Type Severity Reaction Status Date / Time rosuvastatin calcium Allergy Cannot Verified 01/22/20 13:19 [From Crestor] Remember Home Meds: Home Meds Cholecalciferol (Vitamin D3) [Vitamin D3] 1,000 unit PO DAILY 04/10/15 [History] Furosemide 20 mg PO DAILY 04/10/15 [History] Simvastatin [Zocor] 20 mg PO BEDTIME 04/10/15 [History] Spironolact/Hydrochlorothiazid [Spironolactone-HCTZ 25-25] 1 tab PO DAILY 04/10/15 [History] metFORMIN [Glucophage] 850 mg PO BIDMEALS 04/10/15 [History] Metoprolol Tartrate 25 mg PO BID 02/23/18 [History] Apixaban [Eliquis] 1 tab PO BID 05/06/19 [History] Insulin Glargine,Hum.Rec.Anlog [Lantus Solostar] 36 units SUBCUT BEDTIME 05/06/19 [History] Insulin Lispro [HumaLOG] 1 unit SUBCUT ASDIRECTED 05/06/19 [History] Past Medical History HEENT History: Reports: Impaired Vision Cardiovascular History: Reports: CAD, Heart Failure, Pacemaker, Other (See Below) Other Cardiovascular History: hypotension Gastrointestinal History: Reports: GERD Musculoskeletal History: Reports: Back Pain, Chronic Neurological History: Reports: CVA Endocrine/Metabolic History: Reports: Diabetes, Type II, Obesity/BMI 30+ Dermatologic History: Reports: Venous Stasis Dermatitis - Past Surgical History Cardiovascular Surgical History: Reports: Coronary Artery Bypass, Coronary Rayne ry Stent GI Surgical History: Reports: Colonoscopy, Hernia, Inguinal Social & Family History - Caffeine Use Caffeine Use: Reports: Coffee, Soda ED ROS GENERAL - Review of Systems Review Of Systems: Unable To Obtain Reason Not Obtained: Patient is unresponsive to everything except painful stimuli. ED EXAM, GENERAL - Physical Exam Exam: See Below Exam Limited By: Altered Mental Status General Appearance: Obtunded, Other (Responsive only to painful stimuli) Eye Exam: Bilateral Eye: PERRL (Sluggish to respond to light) Head: Atraumatic, Normocephalic Neck: No: Carotid Bruit, Lymphadenopathy (R), Lymphadenopathy (L) Respiratory/Chest: No Respiratory Distress, No Accessory Muscle Use, Decreased Breath Sounds (Bilateral bases, right greater than left.), Other (Tachypnea) Cardiovascular: Normal Peripheral Pulses, Irregularly Irregular GI/Abdominal: Distended, Abnormal Bowel Sounds (Decreased bowel sounds). No: Guarding, Rigid, Rebound (Male) Exam: Normal Inspection, Circumcised, Other (Fair amount of caked on stool in the perineum) Back Exam: Normal Inspection Extremities: Pedal Edema, Increased Warmth (Right lower extremity from mid calf extending up the inner and lateral thigh), Redness (Redness, increased temperature, and swelling of the right lower extremity from mid calf distally with redness extending up the medial and lateral thigh. [place] peel skin.) Neurological: Unresponsive (Unresponsive to all stimuli except pain. Withdraws to painful stimuli.) Skin Exam: Erythema, Increased Warmth Lymphatic: No Adenopathy Course - Vital Signs Last Recorded V/S: Last Vital Signs Temp 36.8 C 01/22/20 12:12 Pulse 97 01/22/20 13:58 Resp 14 01/22/20 13:58 BP 123/62 01/22/20 13:58 Pulse Ox 97 01/22/20 13:58 - Orders/Labs/Meds Orders: Active Orders 24 hr Category Date Time Status CULTURE BLOOD [BC] Urgent Lab 01/22/20 12:42 Received CULTURE BLOOD [BC] Urgent Lab 01/22/20 12:42 Received Sodium Chloride 0.9% [Saline Flush] Med 01/22/20 12:07 Active 10 ml FLUSH ASDIRECTED PRN Vancomycin 1.9 gm Med 01/22/20 14:00 Active Sodium Chloride 0.9% [Normal Saline] 500 ml IV Q24H Blood Culture x2 Reflex Set [OM.PC] Urgent Oth 01/22/20 12:10 Ordered Saline Lock Insert [OM.PC] Routine Oth 01/22/20 12:07 Ordered Medication Orders Vancomycin HCl 1.9 gm/ Sodium (Chloride) 500 mls @ 250 mls/hr IV Q24H [place] Last Admin: 01/22/20 14:14 Dose: 250 mls/hr Documented by: RAFAELA Sodium Chloride (Saline Flush) 10 ml FLUSH ASDIRECTED PRN PRN Reason: Keep Vein Open Last Admin: 01/22/20 13:25 Dose: 10 ml Documented by: RAFAELA Labs: Laboratory Tests 01/22/20 01/22/20 01/22/20 Range/Units 12:06 12:06 12:10 WBC 19.8 H (4.5-11.0) K/uL RBC 5.55 (4.30-5.90) M/uL Hgb 15.3 H (12.0-15.0) g/dL Hct 47.3 (40.0-54.0) % MCV 85 (80-98) fL MCH 28 (27-31) pg MCHC 32 (32-36) % Plt Count 246 (150-400) K/uL Neut % (Auto) 92 H (36-66) % Lymph % (Auto) 4 L (24-44) % [place] % (Auto) 4 (2-6) % Eos % (Auto) 0 L (2-4) % Baso % (Auto) 0 (0-1) % Sodium 137 L (140-148) mmol/L Potassium 4.1 (3.6-5.2) mmol/L Chloride 98 L (100-108) mmol/L Carbon Dioxide 25 (21-32) mmol/L Anion Gap 18.1 H (5.0-14.0) mmol/L BUN 20 H (7-18) mg/dL Creatinine 1.7 H (0.8-1.3) mg/dL Est Cr Clr Drug Dosing 35.23 mL/min Estimated GFR (MDRD) 39 L (>60) Glucose 215 H (74-106) mg/dL Lactic Acid (0.4-2.0) mmol/L Calcium 9.5 (8.5-10.1) mg/dL Total Bilirubin 0.7 (0.2-1.0) mg/dL AST 12 L (15-37) U/L ALT 12 (12-78) U/L Alkaline Phosphatase 68 (46-116) U/L C-Reactive Protein 14.32 H (0.0-0.3) mg/dL Total Protein 7.3 (6.4-8.2) g/dL Albumin 3.1 L (3.4-5.0) g/dL Globulin 4.2 H (2.3-3.5) g/dL Albumin/Globulin Ratio 0.7 L (1.2-2.2) Urine Color Yellow (YELLOW) Urine Appearance Clear (CLEAR) Urine pH 7.0 (5.0-8.0) Ur Specific [place] 1.020 (1.008-1.030) Urine Protein Negative (NEGATIVE) mg/dL Urine Glucose (UA) Negative (NEGATIVE) mg/dL Urine Ketones Negative (NEGATIVE) mg/dL Urine Occult Blood Negative (NEGATIVE) Urine Nitrite Negative (NEGATIVE) Urine Bilirubin Negative (NEGATIVE) Urine Urobilinogen 1.0 (0.2-1.0) EU/dL Ur Leukocyte Esterase Negative (NEGATIVE) Urine RBC Not seen (0-5) Urine WBC 0-5 (0-5) Ur Epithelial Cells Rare Amorphous Sediment Rare Urine Bacteria Not seen Urine Mucus Not seen SARS-CoV-2 RNA (ARLETTE) (NEGATIVE) 01/22/20 01/22/20 Range/Units 12:10 12:16 WBC (4.5-11.0) K/uL RBC (4.30-5.90) M/uL Hgb (12.0-15.0) g/dL Hct (40.0-54.0) % MCV (80-98) fL MCH (27-31) pg MCHC (32-36) % Plt Count (150-400) K/uL Neut % (Auto) (36-66) % Lymph % (Auto) (24-44) % [place] % (Auto) (2-6) % Eos % (Auto) (2-4) % Baso % (Auto) (0-1) % Sodium (140-148) mmol/L Potassium (3.6-5.2) mmol/L Chloride (100-108) mmol/L Carbon Dioxide (21-32) mmol/L Anion Gap (5.0-14.0) mmol/L BUN (7-18) mg/dL Creatinine (0.8-1.3) mg/dL Est Cr Clr Drug Dosing mL/min Estimated GFR (MDRD) (>60) Glucose (74-106) mg/dL Lactic Acid 4.0 H (0.4-2.0) mmol/L Calcium (8.5-10.1) mg/dL Total Bilirubin (0.2-1.0) mg/dL AST (15-37) U/L ALT (12-78) U/L Alkaline Phosphatase (46-116) U/L C-Reactive Protein (0.0-0.3) mg/dL Total Protein (6.4-8.2) g/dL Albumin (3.4-5.0) g/dL Globulin (2.3-3.5) g/dL Albumin/Globulin Ratio (1.2-2.2) Urine Color (YELLOW) Urine Appearance (CLEAR) Urine pH (5.0-8.0) Ur Specific [place] (1.008-1.030) Urine Protein (NEGATIVE) mg/dL Urine Glucose (UA) (NEGATIVE) mg/dL Urine Ketones (NEGATIVE) mg/dL Urine Occult Blood (NEGATIVE) Urine Nitrite (NEGATIVE) Urine Bilirubin (NEGATIVE) Urine Urobilinogen (0.2-1.0) EU/dL Ur Leukocyte Esterase (NEGATIVE) Urine RBC (0-5) Urine WBC (0-5) Ur Epithelial Cells Amorphous Sediment Urine Bacteria Urine Mucus SARS-CoV-2 RNA (ARLETTE) Negative (NEGATIVE) Meds: Medications Generic Name Dose Route Start Last Admin Trade Name Freq PRN Reason Stop Dose Admin Vancomycin HCl 1.9 gm/ Sodium 500 mls @ 250 mls/hr 01/22/20 14:00 01/22/20 14:14 Chloride IV 250 mls/hr Q24H [place] Administration Sodium Chloride 10 ml 01/22/20 12:07 01/22/20 13:25 Saline Flush FLUSH 10 ml ASDIRECTED PRN Administration Keep Vein Open - Re-Assessments/Exams Free Text/Narrative Re-Assessment/Exam: 01/22/20 13:59 patient has a very significant cellulitis developing in the right lower extremity with a high leukocyte count at 19.8, lactic acid of 4.0, fever, and altered level of consciousness. We started antibiotics with vancomycin 1900 mg IV every 24. The patient had a previous episode of a rapidly spreading cellulitis in the past requiring inpatient admission. The patient was recently on hospice but taken off due to the fact that his pacemaker is at the end of its life and he is scheduled for a new pacemaker in January. I will discussed the case with Dr. Murphy to arrange for admission of the patient. Blood cultures have been drawn prior to the initiation of antibiotics. Departure - Departure Time of Disposition: 13:56 Disposition: Admitted As Inpatient 66 Condition: Fair Clinical Impression: Cellulitis of right lower extremity, Altered level of consciousness - Discharge Information Referrals: Rajesh Murphy Sr, MD [Primary Care Provider] - Forms: ED Department Discharge Sepsis Event Note (ED) - Focused Exam Vital Signs: Vital Signs Temp Pulse Resp BP Pulse Ox 01/22/20 13:58 97 14 123/62 97 01/22/20 12:12 36.8 C 89 27 H 123/54 L 94 L 01/22/20 12:05 36.8 C 89 27 H 123/54 L 94 L - Problem List & Annotations (1) Cellulitis of right lower extremity SNOMED Code(s): 876778871 Code(s): L03.115 - CELLULITIS OF RIGHT LOWER LIMB Status: Acute Priority: High Current Visit: Yes (2) Altered level of consciousness SNOMED Code(s): 9040037 Code(s): R40.4 - TRANSIENT ALTERATION OF AWARENESS Status: Acute Priority: High Current Visit: Yes (3) Type 2 diabetes mellitus SNOMED Code(s): 84195073 Code(s): E11.9 - TYPE 2 DIABETES MELLITUS WITHOUT COMPLICATIONS Status: Chronic Priority: Medium Current Visit: No (4) Essential hypertension SNOMED Code(s): 27242098 Code(s): I10 - ESSENTIAL (PRIMARY) HYPERTENSION Status: Chronic Priority: Medium Current Visit: No - Problem List Review Problem List Initiated/Reviewed/Updated: Yes - My Orders Last 24 Hours: My Active Orders 01/22/20 12:07 Sodium Chloride 0.9% [Saline Flush] 10 ml FLUSH ASDIRECTED PRN Saline Lock Insert [OM.PC] Routine 01/22/20 12:10 Blood Culture x2 Reflex Set [OM.PC] Urgent 01/22/20 12:42 CULTURE BLOOD [BC] Urgent CULTURE BLOOD [BC] Urgent 01/22/20 14:00 Vancomycin 1.9 gm Sodium Chloride 0.9% [Normal Saline] 500 ml IV Q24H - Assessment/Plan Last 24 Hours: My Active Orders 01/22/20 12:07 Sodium Chloride 0.9% [Saline Flush] 10 ml FLUSH ASDIRECTED PRN Saline Lock Insert [OM.PC] Routine 01/22/20 12:10 Blood Culture x2 Reflex Set [OM.PC] Urgent 01/22/20 12:42 CULTURE BLOOD [BC] Urgent CULTURE BLOOD [BC] Urgent 01/22/20 14:00 Vancomycin 1.9 gm Sodium Chloride 0.9% [Normal Saline] 500 ml IV Q24H
--- NOTE | 2020-01-22 13:27 | CR ---
CHEST: Portable 01/22/2020 at 12:41 PM CLINICAL HISTORY:Unresponsive COMPARISON:None available FINDINGS: Heart size and pulmonary vascularity are normal. Lung markings are exaggerated due to the supine technique. Patient has a permanent cardiac pacer. There has been previous sternotomy. There are atherosclerotic changes in the aorta. Impression: Previous sternotomy Permanent cardiac pacer No acute cardiopulmonary process
[2020-01-22] MEDS: VANCOMYCIN IV SCH (14:14)
[2020-01-22] MEDS: SODIUM CHLORIDE 0.9% IV SCH (14:14)
--- NOTE | 2020-01-22 15:01 | PCM.HP.2 ---
H&P History of Present Illness - General Date of Service: 01/22/20 Source of Information: EMS, EMS Notes Reviewed, Family History Limitations: Reports: Altered Mental Status - History of Present Illness Initial Comments - Free Text/Narative: Became unresponsive this morning similar to several months ago when he had sepsis due to an infection of his leg. He had a fever of 101.2. Duration of Symptoms: Reports: Hour(s): Location: Reports: Lower Extremity, Right Associated Symptoms: Reports: Confusion, Weakness - Related Data Allergies/Adverse Reactions: Allergies Allergy/AdvReac Type Severity Reaction Status Date / Time rosuvastatin calcium Allergy Cannot Verified 01/22/20 13:19 [From Crestor] Remember Home Medications: Home Meds Furosemide 20 mg PO DAILY 04/10/15 [History] Spironolact/Hydrochlorothiazid [Spironolactone-HCTZ 25-25] 1 tab PO DAILY 04/10/15 [History] metFORMIN [Glucophage] 850 mg PO BIDMEALS 04/10/15 [History] Metoprolol Tartrate 25 mg PO BID 02/23/18 [History] Apixaban [Eliquis] 1 tab PO BID 05/06/19 [History] Insulin Glargine,Hum.Rec.Anlog [Lantus Solostar] 36 units SUBCUT BEDTIME 05/06/19 [History] Insulin Lispro [HumaLOG] 1 unit SUBCUT ASDIRECTED 05/06/19 [History] Acetaminophen [Mapap] 650 mg PO Q6H PRN 01/22/20 [History] Bisacodyl [Laxative Suppository] 10 mg PO ASDIRECTED 01/22/20 [History] Cholecalciferol (Vitamin D3) [Vitamin D3] 25 mcg PO DAILY 01/22/20 [History] Docusate Sodium 100 mg PO BEDTIME 01/22/20 [History] LORazepam [Ativan] 0.5 mg PO Q4H PRN 01/22/20 [History] Melatonin 6 mg PO BEDTIME 01/22/20 [History] Nystatin 1 dose TOP TID 01/22/20 [History] Triamcinolone Acetonide [Triamcinolone Acetonide 0.1% Crm] 1 dose PO BID 01/22/20 [History] polyethylene glycoL 3350 [MiraLAX] 1 dose PO ASDIRECTED 01/22/20 [History] Past Medical History HEENT History: Reports: Impaired Vision Cardiovascular History: Reports: CAD, Heart Failure, Pacemaker, Other (See Below) Other Cardiovascular History: hypotension Gastrointestinal History: Reports: GERD Musculoskeletal History: Reports: Back Pain, Chronic Neurological History: Reports: CVA Endocrine/Metabolic History: Reports: Diabetes, Type II, Obesity/BMI 30+ Dermatologic History: Reports: Venous Stasis Dermatitis - Past Surgical History Cardiovascular Surgical History: Reports: Coronary Artery Bypass, Coronary Ar otto Stent GI Surgical History: Reports: Colonoscopy, Hernia, Inguinal Social & Family History - Tobacco Use Tobacco Use Status *Q: Unknown Ever Used Tobacco - Caffeine Use Caffeine Use: Reports: Coffee, Soda H&P Review of Systems - Review of Systems: Review Of Systems: See Below General: Reports: Fever, Chills, Weakness, Fatigue HEENT: Reports: No Symptoms Pulmonary: Reports: No Symptoms Cardiovascular: Reports: No Symptoms Gastrointestinal: Reports: No Symptoms Genitourinary: Reports: No Symptoms Musculoskeletal: Reports: Leg Pain Neurological: Reports: Confusion, Weakness Immunologic: Reports: No Symptoms Exam - Exam Exam: See Below - Vital Signs Vital Signs: Last Vital Signs Temp 98.2 F 01/22/20 12:12 Pulse 97 01/22/20 13:58 Resp 14 01/22/20 13:58 BP 123/62 01/22/20 13:58 Pulse Ox 97 01/22/20 13:58 Weight: 280 lb - Exam General: Lethargic HEENT: Other (Ears occulded with cerumen, eyes closed shut unable to open.) Lungs: Clear to Auscultation, Normal Respiratory Effort Cardiovascular: Regular Rate, Regular Rhythm GI/Abdominal Exam: Normal Bowel Sounds (Swelling and redness of the lower right leg.), Soft, Non-Tender, No Organomegaly, No Distention, No Abnormal Bruit, No Mass, Pelvis Stable - Patient Data Lab Results Last 24 hrs: Laboratory Results - last 24 hr 01/22/20 01/22/20 01/22/20 Range/Units 12:06 12:06 12:10 WBC 19.8 H (4.5-11.0) K/uL RBC 5.55 (4.30-5.90) M/uL Hgb 15.3 H (12.0-15.0) g/dL Hct 47.3 (40.0-54.0) % MCV 85 (80-98) fL MCH 28 (27-31) pg MCHC 32 (32-36) % Plt Count 246 (150-400) K/uL Neut % (Auto) 92 H (36-66) % Lymph % (Auto) 4 L (24-44) % [place] % (Auto) 4 (2-6) % Eos % (Auto) 0 L (2-4) % Baso % (Auto) 0 (0-1) % Sodium 137 L (140-148) mmol/L Potassium 4.1 (3.6-5.2) mmol/L Chloride 98 L (100-108) mmol/L Carbon Dioxide 25 (21-32) mmol/L Anion Gap 18.1 H (5.0-14.0) mmol/L BUN 20 H (7-18) mg/dL Creatinine 1.7 H (0.8-1.3) mg/dL Est Cr Clr Drug Dosing 35.23 mL/min Estimated GFR (MDRD) 39 L (>60) Glucose 215 H (74-106) mg/dL Lactic Acid (0.4-2.0) mmol/L Calcium 9.5 (8.5-10.1) mg/dL Total Bilirubin 0.7 (0.2-1.0) mg/dL AST 12 L (15-37) U/L ALT 12 (12-78) U/L Alkaline Phosphatase 68 (46-116) U/L C-Reactive Protein 14.32 H (0.0-0.3) mg/dL Total Protein 7.3 (6.4-8.2) g/dL Albumin 3.1 L (3.4-5.0) g/dL Globulin 4.2 H (2.3-3.5) g/dL Albumin/Globulin Ratio 0.7 L (1.2-2.2) Urine Color Yellow (YELLOW) Urine Appearance Clear (CLEAR) Urine pH 7.0 (5.0-8.0) Ur Specific [place] 1.020 (1.008-1.030) Urine Protein Negative (NEGATIVE) mg/dL Urine Glucose (UA) Negative (NEGATIVE) mg/dL Urine Ketones Negative (NEGATIVE) mg/dL Urine Occult Blood Negative (NEGATIVE) Urine Nitrite Negative (NEGATIVE) Urine Bilirubin Negative (NEGATIVE) Urine Urobilinogen 1.0 (0.2-1.0) EU/dL Ur Leukocyte Esterase Negative (NEGATIVE) Urine RBC Not seen (0-5) Urine WBC 0-5 (0-5) Ur Epithelial Cells Rare Amorphous Sediment Rare Urine Bacteria Not seen Urine Mucus Not seen SARS-CoV-2 RNA (ARLETTE) (NEGATIVE) 01/22/20 01/22/20 Range/Units 12:10 12:16 WBC (4.5-11.0) K/uL RBC (4.30-5.90) M/uL Hgb (12.0-15.0) g/dL Hct (40.0-54.0) % MCV (80-98) fL MCH (27-31) pg MCHC (32-36) % Plt Count (150-400) K/uL Neut % (Auto) (36-66) % Lymph % (Auto) (24-44) % [place] % (Auto) (2-6) % Eos % (Auto) (2-4) % Baso % (Auto) (0-1) % Sodium (140-148) mmol/L Potassium (3.6-5.2) mmol/L Chloride (100-108) mmol/L Carbon Dioxide (21-32) mmol/L Anion Gap (5.0-14.0) mmol/L BUN (7-18) mg/dL Creatinine (0.8-1.3) mg/dL Est Cr Clr Drug Dosing mL/min Estimated GFR (MDRD) (>60) Glucose (74-106) mg/dL Lactic Acid 4.0 H (0.4-2.0) mmol/L Calcium (8.5-10.1) mg/dL Total Bilirubin (0.2-1.0) mg/dL AST (15-37) U/L ALT (12-78) U/L Alkaline Phosphatase (46-116) U/L C-Reactive Protein (0.0-0.3) mg/dL Total Protein (6.4-8.2) g/dL Albumin (3.4-5.0) g/dL Globulin (2.3-3.5) g/dL Albumin/Globulin Ratio (1.2-2.2) Urine Color (YELLOW) Urine Appearance (CLEAR) Urine pH (5.0-8.0) Ur Specific [place] (1.008-1.030) Urine Protein (NEGATIVE) mg/dL Urine Glucose (UA) (NEGATIVE) mg/dL Urine Ketones (NEGATIVE) mg/dL Urine Occult Blood (NEGATIVE) Urine Nitrite (NEGATIVE) Urine Bilirubin (NEGATIVE) Urine Urobilinogen (0.2-1.0) EU/dL Ur Leukocyte Esterase (NEGATIVE) Urine RBC (0-5) Urine WBC (0-5) Ur Epithelial Cells Amorphous Sediment Urine Bacteria Urine Mucus SARS-CoV-2 RNA (ARLETTE) Negative (NEGATIVE) Result Diagrams: 01/22/20 15:50 01/22/20 15:50 Sepsis Event Note - Evaluation Sepsis Screening Result: Possible Severe Sepsis Risk - Focused Exam Vital Signs: Vital Signs Temp Pulse Resp BP Pulse Ox 01/22/20 13:58 97 14 123/62 97 01/22/20 12:12 98.2 F 89 27 H 123/54 L 94 L 01/22/20 12:05 98.2 F 89 27 H 123/54 L 94 L Problem List Initiated/Reviewed/Updated: Yes Orders Last 24hrs: Active Orders 24 hr Category Date Time Status CULTURE BLOOD [BC] Urgent Lab 01/22/20 12:42 Received CULTURE BLOOD [BC] Urgent Lab 01/22/20 12:42 Received Sodium Chloride 0.9% [Saline Flush] Med 01/22/20 12:07 Active 10 ml FLUSH ASDIRECTED PRN Vancomycin 1.9 gm Med 01/22/20 14:00 Active Sodium Chloride 0.9% [Normal Saline] 500 ml IV Q24H Blood Culture x2 Reflex Set [OM.PC] Urgent Oth 01/22/20 12:10 Ordered Saline Lock Insert [OM.PC] Routine Oth 01/22/20 12:07 Ordered Medication Orders Vancomycin HCl 1.9 gm/ Sodium (Chloride) 500 mls @ 250 mls/hr IV Q24H [place] Last Admin: 01/22/20 14:14 Dose: 250 mls/hr Documented by: RAFAELA Sodium Chloride (Saline Flush) 10 ml FLUSH ASDIRECTED PRN PRN Reason: Keep Vein Open Last Admin: 01/22/20 13:25 Dose: 10 ml Documented by: RAFAELA Assessment/Plan Comment:: Assessment/Plan: #1. Sepsis from lower right extremity. The white count is elevated to 19.8 with neutrophils 92%. I have continued on vancomycin was started any more true and pharmacy to dose. We'll watch the blood count and kidney functions closely. We will do venous and arterial studies of his legs. #2. Hypertension: I10 His blood pressure was 123/62. We'll watch this closely. He is unable to swallow, so we'll hold medications until he is more alert. #3. Diabetes type 2. E11.8 We'll follow his blood sugars closely and restart medication according to his blood sugars and when he can eat. #4. History of TIA: G45.9 We'll restart medication, Eliquis when possible as he cannot swallow presently. #5. Unspecified dementia without behavioral disturbance. F03.90. #6. Insomnia. G47.00. #7. Elevated BMI. Z68.37 #8. Lower extremity with ulcer other parts of lower leg (right leg). I83.008 - Mortality Measure Prognosis:: Good
[2020-01-22] MEDS: Sodium Chloride 0.9% 1,000 ML IV SCH (17:12)
[2020-01-23] MEDS: Sodium Chloride 0.9% 1,000 ML IV SCH ×3 (02:20→23:59)
--- NOTE | 2020-01-23 09:45 | US ---
VL Duplex Lwr Ext Veins Comp, bilateral HISTORY: Cellulitis of leg is FINDINGS: The deep veins of the both lower extremities demonstrate normal augmentation and compressibility. No evidence for deep venous thrombosis. IMPRESSION: No evidence of deep venous thrombosis
[2020-01-23] MEDS: Enoxaparin 120 MG/0.8 ML Syringe SUBCUT SCH (13:53)
[2020-01-23] MEDS: SODIUM CHLORIDE 0.9% IV SCH (13:56)
[2020-01-23] MEDS: VANCOMYCIN IV SCH (13:56)
--- NOTE | 2020-01-23 20:05 | PCM.PN ---
- General Info Date of Service: 01/23/20 Subjective Update: Still weak and starting to eat. Functional Status: Reports: Pain Controlled - Review of Systems General: Reports: Weakness HEENT: Reports: No Symptoms Pulmonary: Reports: No Symptoms Cardiovascular: Reports: No Symptoms Gastrointestinal: Reports: No Symptoms Genitourinary: Reports: No Symptoms Musculoskeletal: Reports: No Symptoms Skin: Reports: No Symptoms Neurological: Reports: Gait Disturbance - Patient Data Vitals - Most Recent: Last Vital Signs Temp 99.5 F 01/23/20 19:02 Pulse 88 01/23/20 19:02 Resp 16 01/23/20 19:02 BP 133/61 01/23/20 19:02 Pulse Ox 94 L 01/23/20 19:02 Weight - Most Recent: 261 lb 3.012 oz I&O - Last 24 Hours: Intake & Output 01/23/20 01/23/20 01/23/20 06:59 14:59 22:59 Intake Total 474 754 9686 Output Total 350 550 Balance 332 389 6177 Lab Results Last 24 Hours: Laboratory Results - last 24 hr 01/22/20 01/23/20 01/23/20 Range/Units 21:00 07:30 07:57 WBC 16.0 H (4.5-11.0) K/uL RBC 5.06 (4.30-5.90) M/uL Hgb 13.8 (12.0-15.0) g/dL Hct 43.8 (40.0-54.0) % MCV 87 (80-98) fL MCH 27 (27-31) pg MCHC 32 (32-36) % Plt Count 203 (150-400) K/uL Neut % (Auto) 89 H (36-66) % Lymph % (Auto) 5 L (24-44) % [place] % (Auto) 6 (2-6) % Eos % (Auto) 0 L (2-4) % Baso % (Auto) 0 (0-1) % Sodium (140-148) mmol/L Potassium (3.6-5.2) mmol/L Chloride (100-108) mmol/L Carbon Dioxide (21-32) mmol/L Anion Gap (5.0-14.0) mmol/L BUN (7-18) mg/dL Creatinine (0.8-1.3) mg/dL Est Cr Clr Drug Dosing mL/min Estimated GFR (MDRD) (>60) Glucose (74-106) mg/dL POC Glucose 181 H 197 H (74-106) MG/DL Calcium (8.5-10.1) mg/dL 01/23/20 01/23/20 01/23/20 Range/Units 07:57 11:30 16:00 WBC (4.5-11.0) K/uL RBC (4.30-5.90) M/uL Hgb (12.0-15.0) g/dL Hct (40.0-54.0) % MCV (80-98) fL MCH (27-31) pg MCHC (32-36) % Plt Count (150-400) K/uL Neut % (Auto) (36-66) % Lymph % (Auto) (24-44) % [place] % (Auto) (2-6) % Eos % (Auto) (2-4) % Baso % (Auto) (0-1) % Sodium 139 L (140-148) mmol/L Potassium 3.8 (3.6-5.2) mmol/L Chloride 102 (100-108) mmol/L Carbon Dioxide 28 (21-32) mmol/L Anion Gap 12.8 (5.0-14.0) mmol/L BUN 19 H (7-18) mg/dL Creatinine 1.5 H (0.8-1.3) mg/dL Est Cr Clr Drug Dosing 39.93 mL/min Estimated GFR (MDRD) 45 L (>60) Glucose 192 H (74-106) mg/dL POC Glucose 192 H 187 H (74-106) MG/DL Calcium 8.8 (8.5-10.1) mg/dL Samm Results Last 24 Hours: Microbiology 01/22/20 12:42 Aerobic Blood Culture - Preliminary Blood - Venous NO GROWTH AFTER 1 DAY Anaerobic Blood Culture - Preliminary NO GROWTH AFTER 1 DAY 01/22/20 12:42 Aerobic Blood Culture - Preliminary Blood - Venous - Lab Draw Anaerobic Blood Culture - Preliminary NO GROWTH AFTER 1 DAY Med Orders - Current: Current Medications Enoxaparin Sodium (Lovenox) 120 mg SUBCUT Q12H [place] Last Admin: 01/23/20 13:53 Dose: 120 mg Documented by: Vancomycin HCl 1.9 gm/ Sodium (Chloride) 500 mls @ 250 mls/hr IV Q24H [facility] Last Admin: 01/23/20 13:56 Dose: 250 mls/hr Documented by: Sodium Chloride (Normal Saline) 1,000 mls @ 100 mls/hr IV ASDIRECTED [facility] Last Admin: 01/23/20 11:53 Dose: 100 mls/hr Documented by: Sodium Chloride (Saline Flush) 10 ml FLUSH ASDIRECTED PRN PRN Reason: Keep Vein Open Last Admin: 01/22/20 13:25 Dose: 10 ml Documented by: - Exam General: Cooperative, Mild Distress HEENT: Pupils Equal, Pupils Reactive, EOMI, Mucous Membr. Moist/[place] Neck: Supple Lungs: Clear to Auscultation, Normal Respiratory Effort Cardiovascular: Regular Rate, Regular Rhythm GI/Abdominal Exam: Normal Bowel Sounds, Soft Peripheral Pulses: 1+: Radial (L), Radial (R) Wound/Incisions: Erythema, Other (right leg swollen and purple and warm to the touch) Psy/Mental Status: Labile Mood, Depressed Sepsis Event Note - Evaluation Sepsis Screening Result: No Definite Risk - Focused Exam Vital Signs: Vital Signs Temp Temp Pulse Resp BP BP Pulse Ox 01/23/20 19:02 99.5 F 88 16 133/61 94 L 01/23/20 15:56 99.8 F 93 16 119/54 L 93 L 01/23/20 11:01 100.8 F H 83 20 140/40 L 95 - Problem List Review Problem List Initiated/Reviewed/Updated: Yes - My Orders Last 24 Hours: My Active Orders 01/23/20 08:57 Urinary Catheter Assessment [RC] ASDIRECTED 01/23/20 09:00 Insert Loja Catheter [Insert Urinary Catheter] [OM.PC] Q24H 01/23/20 13:00 Enoxaparin [Lovenox] 120 mg SUBCUT Q12H 01/23/20 21:00 GLUCOSE POC LAB TO COLLECT JPM [POC] QIDACANDBED 01/24/20 05:11 CBC WITH AUTO DIFF [HEME] Routine 01/24/20 07:30 GLUCOSE POC LAB TO COLLECT JPM [POC] QIDACANDBED 01/24/20 11:30 GLUCOSE POC LAB TO COLLECT JPM [POC] QIDACANDBED 01/24/20 16:30 GLUCOSE POC LAB TO COLLECT JPM [POC] QIDACANDBED 01/24/20 21:00 GLUCOSE POC LAB TO COLLECT JPM [POC] QIDACANDBED 01/25/20 07:30 GLUCOSE POC LAB TO COLLECT JPM [POC] QIDACANDBED 01/25/20 11:30 GLUCOSE POC LAB TO COLLECT JPM [POC] QIDACANDBED 01/25/20 16:30 GLUCOSE POC LAB TO COLLECT JPM [POC] QIDACANDBED 01/25/20 21:00 GLUCOSE POC LAB TO COLLECT JPM [POC] QIDACANDBED 01/26/20 07:30 GLUCOSE POC LAB TO COLLECT JPM [POC] QIDACANDBED 01/26/20 11:30 GLUCOSE POC LAB TO COLLECT JPM [POC] QIDACANDBED 01/26/20 16:30 GLUCOSE POC LAB TO COLLECT JPM [POC] QIDACANDBED 01/26/20 21:00 GLUCOSE POC LAB TO COLLECT JPM [POC] QIDACANDBED 01/27/20 07:30 GLUCOSE POC LAB TO COLLECT JPM [POC] QIDACANDBED 01/27/20 11:30 GLUCOSE POC LAB TO COLLECT JPM [POC] QIDACANDBED 01/27/20 16:30 GLUCOSE POC LAB TO COLLECT JPM [POC] QIDACANDBED - Plan Plan:: Assessment/Plan: #1. Sepsis from lower right extremity. The white count is elevated to 16.0 from 19.8 yesterday. I have continued on vancomycin as GramPos cocc. was reported on one culture. He woke up this afternoon. We'll watch the blood count and kidney functions closely. #2. Hypertension: stable 133 systolic. We'll watch this closely. He is swallowing now will start fool and restart meds as needed. #3. Diabetes type 2. E11.8 We'll follow his blood sugars closely and restart medication according to his blood sugars and when he can eat. #4. History of TIA: G45.9 We'll restart medication, Eliquis when possible as he cannot swallow presently. #5. Unspecified dementia without behavioral disturbance. F03.90. #6. Insomnia. G47.00. #7. Elevated BMI. Z68.37 #8. Lower extremity with ulcer other parts of lower leg (right leg). I83.008
[2020-01-24] MEDS: Enoxaparin 120 MG/0.8 ML Syringe SUBCUT SCH (01:55)
[2020-01-24] MEDS ORDERED: Glucagon,Human Recombinant 1 MG Vial IM PRN (08:52)
[2020-01-24] MEDS ORDERED: 50% Dextrose in Water 50 ML Syringe IVPUSH PRN (08:52)
[2020-01-24] MEDS ORDERED: LORazepam 0.5 MG Tab PO PRN (08:52)
[2020-01-24] MEDS ORDERED: Polyethylene Glycol 3350 Powder 17 GM Packet PO PRN (09:00)
[2020-01-24] MEDS ORDERED: Insulin Lispro 100 Unit/ML 3 ML KwikPen SUBCUT SCH (09:00)
[2020-01-24] MEDS ORDERED: Bisacodyl 10 MG Supp RECTAL PRN (09:00)
[2020-01-24] MEDS: Apixaban 2.5 MG Tab PO SCH ×2 (09:08→20:17)
[2020-01-24] MEDS: Furosemide 20 MG Tab PO SCH (09:45)
[2020-01-24] MEDS: Cholecalciferol (Vitamin D3) 25 MCG Tab PO SCH (09:45)
[2020-01-24] MEDS: Insulin Lispro 100 Unit/ML 3 ML KwikPen SUBCUT SCH ×3 (09:47→17:01)
[2020-01-24] MEDS: Triamcinolone Acetonide 0.1% Crm 15 GM Tube TOP SCH ×2 (13:05→20:16)
[2020-01-24] MEDS: Nystatin Topical Powder 15 GM Bottle TOP SCH ×3 (13:06→20:15)
[2020-01-24] MEDS: SODIUM CHLORIDE 0.9% IV SCH (13:25)
[2020-01-24] MEDS: VANCOMYCIN IV SCH (13:25)
[2020-01-24] MEDS: Docusate Sodium 100 MG Cap PO SCH (20:15)
[2020-01-24] MEDS: Melatonin 3 MG Tab PO SCH (20:15)
[2020-01-24] MEDS: Insulin Glargine,Human Rec. Analog 100 Units/ML 3 ML Pen SUBCUT SCH (21:19)
--- NOTE | 2020-01-24 21:55 | PCM.PN ---
- General Info Date of Service: 01/24/20 Functional Status: Reports: Pain Controlled - Review of Systems General: Reports: Weakness HEENT: Reports: No Symptoms Pulmonary: Reports: No Symptoms Cardiovascular: Reports: No Symptoms Gastrointestinal: Reports: No Symptoms Genitourinary: Reports: No Symptoms Musculoskeletal: Reports: No Symptoms Skin: Reports: Rash Neurological: Reports: No Symptoms Psychiatric: Reports: No Symptoms - Patient Data Vitals - Most Recent: Last Vital Signs Temp 97.7 F 01/24/20 20:21 Pulse 69 01/24/20 20:21 Resp 16 01/24/20 20:21 BP 135/57 L 01/24/20 20:21 Pulse Ox 97 01/24/20 20:21 Weight - Most Recent: 261 lb 3.012 oz I&O - Last 24 Hours: Intake & Output 01/24/20 01/24/20 01/24/20 06:59 14:59 22:59 Intake Total 2273 1380 1220 Output Total 500 Balance 1773 1380 1220 Lab Results Last 24 Hours: Laboratory Results - last 24 hr 01/24/20 01/24/20 01/24/20 Range/Units 06:03 07:30 11:43 WBC 11.2 H (4.5-11.0) K/uL RBC 4.47 (4.30-5.90) M/uL Hgb 12.3 (12.0-15.0) g/dL Hct 39.2 L (40.0-54.0) % MCV 88 (80-98) fL MCH 28 (27-31) pg MCHC 31 L (32-36) % Plt Count 206 (150-400) K/uL Neut % (Auto) 80 H (36-66) % Lymph % (Auto) 9 L (24-44) % [place] % (Auto) 9 H (2-6) % Eos % (Auto) 2 (2-4) % Baso % (Auto) 0 (0-1) % POC Glucose 234 H 200 H (74-106) MG/DL 01/24/20 01/24/20 Range/Units 16:42 21:31 WBC (4.5-11.0) K/uL RBC (4.30-5.90) M/uL Hgb (12.0-15.0) g/dL Hct (40.0-54.0) % MCV (80-98) fL MCH (27-31) pg MCHC (32-36) % Plt Count (150-400) K/uL Neut % (Auto) (36-66) % Lymph % (Auto) (24-44) % [place] % (Auto) (2-6) % Eos % (Auto) (2-4) % Baso % (Auto) (0-1) % POC Glucose 267 H 223 H (74-106) MG/DL Samm Results Last 24 Hours: Microbiology 01/22/20 12:42 Aerobic Blood Culture - Preliminary Blood - Venous NO GROWTH AFTER 2 DAYS Anaerobic Blood Culture - Preliminary NO GROWTH AFTER 2 DAYS 01/22/20 12:42 Aerobic Blood Culture - Preliminary Blood - Venous - Lab Draw Anaerobic Blood Culture - Preliminary NO GROWTH AFTER 2 DAYS Med Orders - Current: Current Medications Apixaban (Eliquis) 2.5 mg PO BID [facility] Last Admin: 01/24/20 20:17 Dose: 2.5 mg Documented by: Bisacodyl (Dulcolax) 10 mg RECTAL ASDIRECTED PRN PRN Reason: Constipation Cholecalciferol (Vitamin D3) 25 mcg PO DAILY [facility] Last Admin: 01/24/20 09:45 Dose: 25 mcg Documented by: Dextrose/Water (Dextrose 50% In Water) 50 ml IVPUSH ASDIRECTED PRN PRN Reason: Hypoglycemia Docusate Sodium (Colace) 100 mg PO BEDTIME [facility] Last Admin: 01/24/20 20:15 Dose: Not Given Documented by: Furosemide (Lasix) 20 mg PO DAILY [facility] Last Admin: 01/24/20 09:45 Dose: 20 mg Documented by: Glucagon (Glucagen) 1 mg IM ASDIRECTED PRN PRN Reason: Hypoglycemia Vancomycin HCl 1.9 gm/ Sodium (Chloride) 500 mls @ 250 mls/hr IV Q24H [facility] Last Admin: 01/24/20 13:25 Dose: 250 mls/hr Documented by: Insulin Glargine (Lantus Solostar) 36 units SUBCUT BEDTIME [facility] Last Admin: 01/24/20 21:19 Dose: 36 units Documented by: Insulin Human Lispro (Humalog) 14 unit SUBCUT WITHDINNER [facility] Last Admin: 01/24/20 17:01 Dose: 14 unit Documented by: Insulin Human Lispro (Humalog) 12 unit SUBCUT WITHLUNCH [facility] Last Admin: 01/24/20 12:27 Dose: 12 units Documented by: Insulin Human Lispro (Humalog) 8 unit SUBCUT WITHBREAKFAST [facility] Last Admin: 01/24/20 09:47 Dose: 8 units Documented by: Lorazepam (Ativan) 0.5 mg PO Q4H PRN PRN Reason: Anxiety Melatonin (Melatonin) 6 mg PO BEDTIME [facility] Last Admin: 01/24/20 20:15 Dose: 6 mg Documented by: Metformin HCl (Glucophage) 850 mg PO BIDMEALS [facility] Last Admin: 01/24/20 17:00 Dose: 850 mg Documented by: Nystatin (Nystop) 0 gm TOP TID [facility] Last Admin: 01/24/20 20:15 Dose: 1 applic Documented by: Polyethylene Glycol (Miralax) 17 gm PO ASDIRECTED PRN PRN Reason: Constipation Last Admin: 01/24/20 13:25 Dose: 17 gm Documented by: Sodium Chloride (Saline Flush) 10 ml FLUSH ASDIRECTED PRN PRN Reason: Keep Vein Open Last Admin: 01/22/20 13:25 Dose: 10 ml Documented by: Triamcinolone Acetonide (Triamcinolone Acetonide 0.1% Crm) 0 gm TOP BID [facility] Last Admin: 01/24/20 20:16 Dose: 1 applic Documented by: Discontinued Medications Enoxaparin Sodium (Lovenox) 120 mg SUBCUT Q12H [facility] Last Admin: 01/24/20 01:55 Dose: 120 mg Documented by: Sodium Chloride (Normal Saline) 1,000 mls @ 100 mls/hr IV ASDIRECTED [facility] Last Admin: 01/23/20 23:59 Dose: 100 mls/hr Documented by: - Exam General: Cooperative, Mild Distress HEENT: Pupils Equal, Pupils Reactive Neck: Supple Lungs: Clear to Auscultation, Normal Respiratory Effort Cardiovascular: Regular Rate, Regular Rhythm Peripheral Pulses: 1+: Radial (L), Radial (R) Skin: Warm, Dry, Intact Neurological: No New Focal Deficit Psy/Mental Status: Normal Mood, Labile Mood Sepsis Event Note - Evaluation Sepsis Screening Result: No Definite Risk - Focused Exam Vital Signs: Vital Signs Temp Pulse Resp BP BP Pulse Ox 01/24/20 20:21 97.7 F 69 16 135/57 L 97 01/24/20 17:03 97.9 F 75 20 128/62 99 01/24/20 11:22 97.9 F 70 16 135/54 L 97 - Problem List Review Problem List Initiated/Reviewed/Updated: Yes - My Orders Last 24 Hours: My Active Orders 01/24/20 Breakfast Regular Diet [DIET] 01/24/20 08:43 Consult to Physical Therapy [PT Evaluation and Treatment] [CONS] Routine 01/24/20 08:52 Dextrose 50% in Water 50 ml IVPUSH ASDIRECTED PRN Glucagon,Human Recombinant [GlucaGen] 1 mg IM ASDIRECTED PRN LORazepam [Ativan] 0.5 mg PO Q4H PRN 01/24/20 09:00 Apixaban [Eliquis] 2.5 mg PO BID Cholecalciferol (Vitamin D3) [Vitamin D3] 25 mcg PO DAILY Furosemide [Lasix] 20 mg PO DAILY Insulin Lispro [HumaLOG] 8 unit SUBCUT WITHBREAKFAST Triamcinolone Acetonide [Triamcinolone Acetonide 0.1% Crm] 0 gm TOP BID bisacodyL [Dulcolax] 10 mg RECTAL ASDIRECTED PRN metFORMIN [Glucophage] 850 mg PO BIDMEALS polyethylene glycoL 3350 [MiraLAX] 17 gm PO ASDIRECTED PRN 01/24/20 09:02 Convert IV to Saline Lock [OM.PC] Routine 01/24/20 09:08 Communication Order [RC] ASDIRECTED 01/24/20 09:15 Nystatin [Nystop] 0 gm TOP TID 01/24/20 12:00 Insulin Lispro [HumaLOG] 12 unit SUBCUT WITHLUNCH 01/24/20 17:00 Insulin Lispro [HumaLOG] 14 unit SUBCUT WITHDINNER 01/24/20 21:00 Docusate Sodium [Colace] 100 mg PO BEDTIME Insulin Glarg,Human.Rec.Analog [LantUS Solostar] 36 units SUBCUT BEDTIME Melatonin 6 mg PO BEDTIME 01/25/20 07:30 GLUCOSE POC LAB TO COLLECT JPM [POC] QIDACANDBED 01/25/20 11:30 GLUCOSE POC LAB TO COLLECT JPM [POC] QIDACANDBED 01/25/20 16:30 GLUCOSE POC LAB TO COLLECT JPM [POC] QIDACANDBED 11/01/20 21:00 GLUCOSE POC LAB TO COLLECT JPM [POC] QIDACANDBED 01/26/20 07:30 GLUCOSE POC LAB TO COLLECT JPM [POC] QIDACANDBED 01/26/20 11:30 GLUCOSE POC LAB TO COLLECT JPM [POC] QIDACANDBED 01/26/20 16:30 GLUCOSE POC LAB TO COLLECT JPM [POC] QIDACANDBED 01/26/20 21:00 GLUCOSE POC LAB TO COLLECT JPM [POC] QIDACANDBED 01/27/20 07:30 GLUCOSE POC LAB TO COLLECT JPM [POC] QIDACANDBED 01/27/20 11:30 GLUCOSE POC LAB TO COLLECT JPM [POC] QIDACANDBED 01/27/20 16:30 GLUCOSE POC LAB TO COLLECT JPM [POC] QIDACANDBED - Plan Plan:: Assessment/Plan: #1. Sepsis from lower right extremity. The white count is elevated to 11.2 from 16.0 yesterday. I have continued on vancomycin as GramPos cocc. was reported on one culture MRSA. He woke up yesterday about noon. We'll watch the blood count and kidney functions closely. #2. Hypertension: stable 135 systolic. We'll watch this closely. He is swallowing now will start fool and restart meds as needed. #3. Diabetes type 2. E11.8 His blood sugar is elevated so have started his meds including insulin again. He is eating well so have reduced the IV fluids to KVO. #4. History of TIA: G45.9 We'll restart medication, Eliquis when possible as he cannot swallow presently. #5. Unspecified dementia without behavioral disturbance. F03.90. #6. Insomnia. G47.00. #7. Elevated BMI. Z68.37 #8. Lower extremity with ulcer other parts of lower leg (right leg). I83.008
[2020-01-25] MEDS: Nystatin Topical Powder 15 GM Bottle TOP SCH ×3 (08:18→20:06)
[2020-01-25] MEDS: Triamcinolone Acetonide 0.1% Crm 15 GM Tube TOP SCH ×2 (08:19→20:05)
[2020-01-25] MEDS: Cholecalciferol (Vitamin D3) 25 MCG Tab PO SCH (08:21)
[2020-01-25] MEDS: Apixaban 2.5 MG Tab PO SCH ×2 (08:23→20:05)
[2020-01-25] MEDS: Insulin Lispro 100 Unit/ML 3 ML KwikPen SUBCUT SCH ×3 (08:23→17:09)
[2020-01-25] MEDS: Furosemide 20 MG Tab PO SCH (08:27)
[2020-01-25] MEDS: Lactobacillus Rhamnosus GG (Probiotic) Cap PO SCH ×2 (10:10→20:05)
[2020-01-25] MEDS: Doxycycline 100 MG Cap PO SCH ×2 (10:11→20:05)
[2020-01-25] MEDS: Docusate Sodium 100 MG Cap PO SCH (20:05)
[2020-01-25] MEDS: Melatonin 3 MG Tab PO SCH (20:05)
[2020-01-25] MEDS: Insulin Glargine,Human Rec. Analog 100 Units/ML 3 ML Pen SUBCUT SCH (21:21)
--- NOTE | 2020-01-25 21:24 | PCM.PN ---
- General Info Date of Service: 01/25/20 Functional Status: Reports: Pain Controlled - Review of Systems General: Reports: Weakness HEENT: Reports: No Symptoms Pulmonary: Reports: No Symptoms Cardiovascular: Reports: No Symptoms Gastrointestinal: Reports: No Symptoms Genitourinary: Reports: No Symptoms Musculoskeletal: Reports: Leg Pain Skin: Reports: Rash Neurological: Reports: Difficulty Walking, Weakness, Gait Disturbance - Patient Data Vitals - Most Recent: Last Vital Signs Temp 97.8 F 01/25/20 19:33 Pulse 70 01/25/20 19:33 Resp 16 01/25/20 19:33 BP 132/65 01/25/20 19:33 Pulse Ox 97 01/25/20 19:33 Weight - Most Recent: 261 lb 3.012 oz I&O - Last 24 Hours: Intake & Output 01/25/20 01/25/20 01/25/20 06:59 14:59 22:59 Intake Total 1040 470 Balance 1040 470 Lab Results Last 24 Hours: Laboratory Results - last 24 hr 01/25/20 01/25/20 01/25/20 Range/Units 07:39 11:23 16:30 POC Glucose 139 H 161 H 208 H (74-106) MG/DL 01/25/20 Range/Units 20:55 POC Glucose 209 H (74-106) MG/DL Samm Results Last 24 Hours: Microbiology 01/22/20 12:42 Aerobic Blood Culture - Preliminary Blood - Venous NO GROWTH AFTER 3 DAYS Anaerobic Blood Culture - Preliminary NO GROWTH AFTER 3 DAYS 01/22/20 12:42 Aerobic Blood Culture - Final Blood - Venous - Lab Draw Staphylococcus Capitis Anaerobic Blood Culture - Preliminary NO GROWTH AFTER 3 DAYS Med Orders - Current: Current Medications Apixaban (Eliquis) 2.5 mg PO BID [facility] Last Admin: 01/25/20 20:05 Dose: 2.5 mg Documented by: Bisacodyl (Dulcolax) 10 mg RECTAL ASDIRECTED PRN PRN Reason: Constipation Cholecalciferol (Vitamin D3) 25 mcg PO DAILY [facility] Last Admin: 01/25/20 08:21 Dose: 25 mcg Documented by: Dextrose/Water (Dextrose 50% In Water) 50 ml IVPUSH ASDIRECTED PRN PRN Reason: Hypoglycemia Docusate Sodium (Colace) 100 mg PO BEDTIME [facility] Last Admin: 01/25/20 20:05 Dose: 100 mg Documented by: Doxycycline Hyclate (Vibramycin) 100 mg PO Q12H [facility] Stop: 01/29/20 09:01 Last Admin: 01/25/20 20:05 Dose: 100 mg Documented by: Furosemide (Lasix) 20 mg PO DAILY [facility] Last Admin: 01/25/20 08:27 Dose: 20 mg Documented by: Glucagon (Glucagen) 1 mg IM ASDIRECTED PRN PRN Reason: Hypoglycemia Insulin Glargine (Lantus Solostar) 36 units SUBCUT BEDTIME [facility] Last Admin: 01/24/20 21:19 Dose: 36 units Documented by: Insulin Human Lispro (Humalog) 14 unit SUBCUT WITHDINNER [facility] Last Admin: 01/25/20 17:09 Dose: 14 unit Documented by: Insulin Human Lispro (Humalog) 12 unit SUBCUT WITHLUNCH [facility] Last Admin: 01/25/20 12:10 Dose: 12 units Documented by: Insulin Human Lispro (Humalog) 8 unit SUBCUT WITHBREAKFAST [facility] Last Admin: 01/25/20 08:23 Dose: 8 units Documented by: Lactobacillus Rhamnosus (Culturelle) 1 cap PO BID [facility] Last Admin: 01/25/20 20:05 Dose: 1 cap Documented by: Lorazepam (Ativan) 0.5 mg PO Q4H PRN PRN Reason: Anxiety Melatonin (Melatonin) 6 mg PO BEDTIME [facility] Last Admin: 01/25/20 20:05 Dose: 6 mg Documented by: Metformin HCl (Glucophage) 850 mg PO BIDMEALS [facility] Last Admin: 01/25/20 17:09 Dose: 850 mg Documented by: Nystatin (Nystop) 0 gm TOP TID [facility] Last Admin: 01/25/20 20:06 Dose: 1 applic Documented by: Polyethylene Glycol (Miralax) 17 gm PO ASDIRECTED PRN PRN Reason: Constipation Last Admin: 01/24/20 13:25 Dose: 17 gm Documented by: Sodium Chloride (Saline Flush) 10 ml FLUSH ASDIRECTED PRN PRN Reason: Keep Vein Open Last Admin: 01/22/20 13:25 Dose: 10 ml Documented by: Triamcinolone Acetonide (Triamcinolone Acetonide 0.1% Crm) 0 gm TOP BID [facility] Last Admin: 01/25/20 20:05 Dose: 1 applic Documented by: Discontinued Medications Enoxaparin Sodium (Lovenox) 120 mg SUBCUT Q12H [facility] Last Admin: 01/24/20 01:55 Dose: 120 mg Documented by: Vancomycin HCl 1.9 gm/ Sodium (Chloride) 500 mls @ 250 mls/hr IV Q24H [facility] Last Admin: 01/24/20 13:25 Dose: 250 mls/hr Documented by: Sodium Chloride (Normal Saline) 1,000 mls @ 100 mls/hr IV ASDIRECTED [facility] Last Admin: 01/23/20 23:59 Dose: 100 mls/hr Documented by: - Exam General: Oriented, Mild Distress HEENT: Pupils Equal, Pupils Reactive, EOMI, Mucous Membr. Moist/[place] Neck: Supple Lungs: Clear to Auscultation, Normal Respiratory Effort Cardiovascular: Regular Rate, Regular Rhythm GI/Abdominal Exam: Normal Bowel Sounds, Soft, Non-Tender, No Organomegaly, No Distention, No Abnormal Bruit, No Mass, Pelvis Stable Extremities: Increased Warmth, Mottled, Redness Peripheral Pulses: 1+: Radial (L), Radial (R) Skin: Warm Wound/Incisions: Erythema Neurological: Other (Mild dementia) Psy/Mental Status: Depressed Sepsis Event Note - Evaluation Sepsis Screening Result: No Definite Risk - Focused Exam Vital Signs: Vital Signs Temp Pulse Resp BP BP Pulse Ox 01/25/20 19:33 97.8 F 70 16 132/65 97 01/25/20 17:16 96.7 F L 78 20 139/80 95 01/25/20 12:53 97.4 F 91 16 155/68 H 96 - Problem List Review Problem List Initiated/Reviewed/Updated: Yes - My Orders Last 24 Hours: My Active Orders 01/25/20 08:21 Dietary Supplements [RC] BIDMEALS 01/25/20 09:00 Doxycycline [Vibramycin] 100 mg PO Q12H Lactobacillus Rhamnosus GG [Culturelle] 1 cap PO BID 01/26/20 07:30 GLUCOSE POC LAB TO COLLECT JPM [POC] QIDACANDBED 01/26/20 11:30 GLUCOSE POC LAB TO COLLECT JPM [POC] QIDACANDBED 01/26/20 16:30 GLUCOSE POC LAB TO COLLECT JPM [POC] QIDACANDBED 01/26/20 21:00 GLUCOSE POC LAB TO COLLECT JPM [POC] QIDACANDBED 01/27/20 07:30 GLUCOSE POC LAB TO COLLECT JPM [POC] QIDACANDBED 01/27/20 11:30 GLUCOSE POC LAB TO COLLECT JPM [POC] QIDACANDBED 01/27/20 16:30 GLUCOSE POC LAB TO COLLECT JPM [POC] QIDACANDBED - Plan Plan:: Assessment/Plan: #1. Sepsis from lower right extremity. I have continued on Docycycline 100 mg bid. MRSA Temp.97.8. Plan to discharge hometomorrow and repeat the CBC in the morning. #2. Hypertension: stable 132/35. We'll watch this closely. He is swallowing now will start fool and restart meds as needed. #3. Diabetes type 2. E11.8 We'll follow his blood sugars closely and restart medication according to his blood sugars and when he can eat. #4. History of TIA: G45.9 I have restarted all medication, #5. Unspecified dementia without behavioral disturbance. F03.90. #6. Insomnia. G47.00. #7. Elevated BMI. Z68.37 #8. Lower extremity with ulcer other parts of lower leg (right leg). I83.008
[2020-01-26 07:36] VITALS: BP 114/53; PULSE 72
--- NOTE | 2020-01-26 08:54 | PCM.PN ---
- General Info Date of Service: 01/26/20 Functional Status: Reports: Pain Controlled - Review of Systems General: Reports: Weakness, Fatigue HEENT: Reports: No Symptoms Pulmonary: Reports: No Symptoms Cardiovascular: Reports: No Symptoms Gastrointestinal: Reports: No Symptoms Genitourinary: Reports: No Symptoms Musculoskeletal: Reports: No Symptoms Skin: Reports: Rash, Other (redened area on the right leg with increased warmpth) Neurological: Reports: No Symptoms Psychiatric: Reports: No Symptoms - Patient Data Vitals - Most Recent: Last Vital Signs Temp 96.0 F L 01/26/20 07:33 Pulse 72 01/26/20 07:33 Resp 18 01/26/20 07:33 BP 114/53 L 01/26/20 07:33 Pulse Ox 96 01/26/20 07:33 Weight - Most Recent: 261 lb 3.012 oz I&O - Last 24 Hours: Intake & Output 01/25/20 01/26/20 01/26/20 22:59 06:59 14:59 Intake Total 470 Balance 470 Lab Results Last 24 Hours: Laboratory Results - last 24 hr 01/25/20 01/25/20 01/25/20 Range/Units 11:23 16:30 20:55 WBC (4.5-11.0) K/uL RBC (4.30-5.90) M/uL Hgb (12.0-15.0) g/dL Hct (40.0-54.0) % MCV (80-98) fL MCH (27-31) pg MCHC (32-36) % Plt Count (150-400) K/uL Neut % (Auto) (36-66) % Lymph % (Auto) (24-44) % [place] % (Auto) (2-6) % Eos % (Auto) (2-4) % Baso % (Auto) (0-1) % Sodium (140-148) mmol/L Potassium (3.6-5.2) mmol/L Chloride (100-108) mmol/L Carbon Dioxide (21-32) mmol/L Anion Gap (5.0-14.0) mmol/L BUN (7-18) mg/dL Creatinine (0.8-1.3) mg/dL Est Cr Clr Drug Dosing mL/min Estimated GFR (MDRD) (>60) Glucose (74-106) mg/dL POC Glucose 161 H 208 H 209 H (74-106) MG/DL Calcium (8.5-10.1) mg/dL 01/26/20 01/26/20 01/26/20 Range/Units 04:00 04:00 07:31 WBC 8.8 (4.5-11.0) K/uL RBC 4.54 (4.30-5.90) M/uL Hgb 12.8 (12.0-15.0) g/dL Hct 39.3 L (40.0-54.0) % MCV 87 (80-98) fL MCH 28 (27-31) pg MCHC 33 (32-36) % Plt Count 215 (150-400) K/uL Neut % (Auto) 70 H (36-66) % Lymph % (Auto) 15 L (24-44) % [place] % (Auto) 11 H (2-6) % Eos % (Auto) 4 (2-4) % Baso % (Auto) 1 (0-1) % Sodium 138 L (140-148) mmol/L Potassium 3.5 L (3.6-5.2) mmol/L Chloride 104 (100-108) mmol/L Carbon Dioxide 25 (21-32) mmol/L Anion Gap 12.5 (5.0-14.0) mmol/L BUN 14 (7-18) mg/dL Creatinine 1.1 (0.8-1.3) mg/dL Est Cr Clr Drug Dosing 54.27 mL/min Estimated GFR (MDRD) > 60 (>60) Glucose 187 H (74-106) mg/dL POC Glucose 147 H (74-106) MG/DL Calcium 8.2 L (8.5-10.1) mg/dL Samm Results Last 24 Hours: Microbiology 01/22/20 12:42 Aerobic Blood Culture - Preliminary Blood - Venous NO GROWTH AFTER 3 DAYS Anaerobic Blood Culture - Preliminary NO GROWTH AFTER 3 DAYS 01/22/20 12:42 Aerobic Blood Culture - Final Blood - Venous - Lab Draw Staphylococcus Capitis Anaerobic Blood Culture - Preliminary NO GROWTH AFTER 3 DAYS Med Orders - Current: Current Medications Apixaban (Eliquis) 2.5 mg PO BID [place] Last Admin: 01/25/20 20:05 Dose: 2.5 mg Documented by: Bisacodyl (Dulcolax) 10 mg RECTAL ASDIRECTED PRN PRN Reason: Constipation Cholecalciferol (Vitamin D3) 25 mcg PO DAILY [facility] Last Admin: 01/25/20 08:21 Dose: 25 mcg Documented by: Dextrose/Water (Dextrose 50% In Water) 50 ml IVPUSH ASDIRECTED PRN PRN Reason: Hypoglycemia Docusate Sodium (Colace) 100 mg PO BEDTIME [facility] Last Admin: 01/25/20 20:05 Dose: 100 mg Documented by: Doxycycline Hyclate (Vibramycin) 100 mg PO Q12H [facility] Stop: 01/29/20 09:01 Last Admin: 01/25/20 20:05 Dose: 100 mg Documented by: Furosemide (Lasix) 20 mg PO DAILY [facility] Last Admin: 01/25/20 08:27 Dose: 20 mg Documented by: Glucagon (Glucagen) 1 mg IM ASDIRECTED PRN PRN Reason: Hypoglycemia Insulin Glargine (Lantus Solostar) 36 units SUBCUT BEDTIME [facility] Last Admin: 01/25/20 21:21 Dose: 36 units Documented by: Insulin Human Lispro (Humalog) 14 unit SUBCUT WITHDINNER [facility] Last Admin: 01/25/20 17:09 Dose: 14 unit Documented by: Insulin Human Lispro (Humalog) 12 unit SUBCUT WITHLUNCH [facility] Last Admin: 01/25/20 12:10 Dose: 12 units Documented by: Insulin Human Lispro (Humalog) 8 unit SUBCUT WITHBREAKFAST [facility] Last Admin: 01/25/20 08:23 Dose: 8 units Documented by: Lactobacillus Rhamnosus (Culturelle) 1 cap PO BID [facility] Last Admin: 01/25/20 20:05 Dose: 1 cap Documented by: Lorazepam (Ativan) 0.5 mg PO Q4H PRN PRN Reason: Anxiety Melatonin (Melatonin) 6 mg PO BEDTIME [facility] Last Admin: 01/25/20 20:05 Dose: 6 mg Documented by: Metformin HCl (Glucophage) 850 mg PO BIDMEALS [facility] Last Admin: 01/25/20 17:09 Dose: 850 mg Documented by: Nystatin (Nystop) 0 gm TOP TID [facility] Last Admin: 01/25/20 20:06 Dose: 1 applic Documented by: Polyethylene Glycol (Miralax) 17 gm PO ASDIRECTED PRN PRN Reason: Constipation Last Admin: 01/24/20 13:25 Dose: 17 gm Documented by: Sodium Chloride (Saline Flush) 10 ml FLUSH ASDIRECTED PRN PRN Reason: Keep Vein Open Last Admin: 01/22/20 13:25 Dose: 10 ml Documented by: Triamcinolone Acetonide (Triamcinolone Acetonide 0.1% Crm) 0 gm TOP BID [facility] Last Admin: 01/25/20 20:05 Dose: 1 applic Documented by: Discontinued Medications Enoxaparin Sodium (Lovenox) 120 mg SUBCUT Q12H [facility] Last Admin: 01/24/20 01:55 Dose: 120 mg Documented by: Vancomycin HCl 1.9 gm/ Sodium (Chloride) 500 mls @ 250 mls/hr IV Q24H [facility] Last Admin: 01/24/20 13:25 Dose: 250 mls/hr Documented by: Sodium Chloride (Normal Saline) 1,000 mls @ 100 mls/hr IV ASDIRECTED [facility] Last Admin: 01/23/20 23:59 Dose: 100 mls/hr Documented by: - Exam General: Oriented, Cooperative, Mild Distress HEENT: Pupils Equal, Pupils Reactive, EOMI, Mucous Membr. Moist/[place] Neck: Supple Lungs: Clear to Auscultation, Normal Respiratory Effort Cardiovascular: Regular Rate, Regular Rhythm GI/Abdominal Exam: Normal Bowel Sounds, Soft, Non-Tender, No Organomegaly, No Distention, No Abnormal Bruit, No Mass, Pelvis Stable Back Exam: Normal Inspection Extremities: Normal Inspection, Normal Range of Motion, Non-Tender, No Pedal Edema, Normal Capillary Refill Peripheral Pulses: 1+: Radial (L), Radial (R) Skin: Rash Wound/Incisions: Healing Well, Erythema, Erythema Improving Neurological: No New Focal Deficit Psy/Mental Status: Alert, Normal Affect, Normal Mood Sepsis Event Note - Evaluation Sepsis Screening Result: No Definite Risk - Focused Exam Vital Signs: Vital Signs Temp Pulse Resp BP Pulse Ox 01/26/20 07:33 96.0 F L 72 18 114/53 L 96 01/26/20 02:23 97.4 F 84 16 126/45 L 96 01/25/20 23:43 97.4 F 18 - Problem List Review Problem List Initiated/Reviewed/Updated: Yes - My Orders Last 24 Hours: My Active Orders 01/25/20 08:21 Dietary Supplements [RC] BIDMEALS 01/25/20 09:00 Doxycycline [Vibramycin] 100 mg PO Q12H Lactobacillus Rhamnosus GG [Culturelle] 1 cap PO BID 01/26/20 08:44 Ready for Discharge [RC] PER UNIT ROUTINE 01/26/20 11:30 GLUCOSE POC LAB TO COLLECT JPM [POC] QIDACANDBED 01/26/20 16:30 GLUCOSE POC LAB TO COLLECT JPM [POC] QIDACANDBED 01/26/20 21:00 GLUCOSE POC LAB TO COLLECT JPM [POC] QIDACANDBED 01/27/20 07:30 GLUCOSE POC LAB TO COLLECT JPM [POC] QIDACANDBED 01/27/20 11:30 GLUCOSE POC LAB TO COLLECT JPM [POC] QIDACANDBED 01/27/20 16:30 GLUCOSE POC LAB TO COLLECT JPM [POC] QIDACANDBED - Plan Plan:: Assessment/Plan: #1. Sepsis from lower right extremity. I have continued on Docycycline 100 mg bid. MRSA Temp.96.0. WBC 8.8. Plan to discharge home today. #2. Hypertension: stable 114/53. K+ 3.5. Needs K #3. Diabetes type 2. E11.8 #4. History of TIA: G45.9 I have restarted all medication, #5. Unspecified dementia without behavioral disturbance. F03.90. #6. Insomnia. G47.00. #7. Elevated BMI. Z68.37 #8. Lower extremity with ulcer other parts of lower leg (right leg). I83.008
[2020-01-26] MEDS: Doxycycline 100 MG Cap PO SCH (09:09)
[2020-01-26] MEDS: Lactobacillus Rhamnosus GG (Probiotic) Cap PO SCH (09:09)
[2020-01-26] MEDS: Triamcinolone Acetonide 0.1% Crm 15 GM Tube TOP SCH (09:09)
[2020-01-26] MEDS: Cholecalciferol (Vitamin D3) 25 MCG Tab PO SCH (09:09)
[2020-01-26] MEDS: Nystatin Topical Powder 15 GM Bottle TOP SCH (09:09)
[2020-01-26] MEDS: Insulin Lispro 100 Unit/ML 3 ML KwikPen SUBCUT SCH ×2 (09:10→11:28)
[2020-01-26] MEDS: Apixaban 2.5 MG Tab PO SCH (09:10)
[2020-01-26] MEDS: Furosemide 20 MG Tab PO SCH (09:10)
--- NOTE | 2020-01-26 09:18 | PCM.DCSUM1 ---
Discharge Summary - Hospital Course Brief History: Moustapha came in from home with a high fever and lethargic. This has happened before and the infection was in his right leg. He was seen in the emergency room and then admitted. Diagnosis: Stroke: No - Discharge Data Discharge Date: 01/26/20 Discharge Disposition: Home, Self-Care 01 Condition: Fair - Referral to Home Health Primary Care Physician: Rajesh Murphy Sr, MD - Patient Summary/Data Consults: Consultations 01/24/20 08:43 Consult to Physical Therapy [PT Evaluation and Treatment] [CONS] Routine Please Evaluate and Treat. PT Reason for Consult: Weakness This query below is only for informational purposes and is not editable. Admission Diagnosis/Problem: Sepsis Hospital Course: He was started on vancomycin immediately and in 2 days the cultures came back gram-positive cocci and was started on doxycycline by mouth, which did show sensitivities. The infection was found presumed to be in his right leg. Initially he was comatose, but has improved with able to communicate. - Patient Instructions Diet: Heart Healthy Diet Activity: As Tolerated - Discharge Plan *PRESCRIPTION DRUG MONITORING PROGRAM REVIEWED*: No *COPY OF PRESCRIPTION DRUG MONITORING REPORT IN PATIENT MELODY: No Home Medications: Home Meds Furosemide 20 mg PO DAILY 04/10/15 [History] Spironolact/Hydrochlorothiazid [Spironolactone-HCTZ 25-25] 1 tab PO DAILY 04/10/15 [History] metFORMIN [Glucophage] 850 mg PO BIDMEALS 04/10/15 [History] Metoprolol Tartrate 25 mg PO BID 02/23/18 [History] Insulin Glargine,Hum.Rec.Anlog [Lantus Solostar] 36 units SUBCUT BEDTIME 05/06/19 [History] Insulin Lispro [HumaLOG] 1 unit SUBCUT ASDIRECTED 05/06/19 [History] Acetaminophen [Mapap] 650 mg PO Q6H PRN 01/22/20 [History] Bisacodyl [Laxative Suppository] 10 mg PO ASDIRECTED 01/22/20 [History] Cholecalciferol (Vitamin D3) [Vitamin D3] 25 mcg PO DAILY 01/22/20 [History] Docusate Sodium 100 mg PO BEDTIME 01/22/20 [History] LORazepam [Ativan] 0.5 mg PO Q4H PRN 01/22/20 [History] Melatonin 6 mg PO BEDTIME 01/22/20 [History] Nystatin 1 dose TOP TID 01/22/20 [History] Triamcinolone Acetonide [Triamcinolone Acetonide 0.1% Crm] 1 dose PO BID 01/22/20 [History] polyethylene glycoL 3350 [MiraLAX] 1 dose PO ASDIRECTED 01/22/20 [History] Apixaban [Eliquis] 2.5 mg PO BID tablet 01/26/20 [Rx] Doxycycline [Vibramycin] 100 mg PO Q12H cap 01/26/20 [Rx] Forms: ED Department Discharge Referrals: Rajesh Murphy Sr, MD [Primary Care Provider] - - Discharge Summary/Plan Comment DC Time >30 min.: Yes Discharge Summary/Plan Comment: Assessment/Plan: #1. Sepsis from lower right extremity. I have continued on Docycycline 100 mg bid. MRSA Temp.96.0. WBC 8.8. Plan to discharge home today. #2. Hypertension: stable 114/53. K+ 3.5. Needs K #3. Diabetes type 2. E11.8 #4. History of TIA: G45.9 I have restarted all medication, #5. Unspecified dementia without behavioral disturbance. F03.90. #6. Insomnia. G47.00. #7. Elevated BMI. Z68.37 #8. Lower extremity with ulcer other parts of lower leg (right leg). I83.008 - General Info Date of Service: 01/26/20 Functional Status: Reports: Pain Controlled - Review of Systems General: Reports: Weakness, Fatigue HEENT: Reports: No Symptoms Pulmonary: Reports: No Symptoms Cardiovascular: Reports: No Symptoms Gastrointestinal: Reports: No Symptoms Genitourinary: Reports: No Symptoms Musculoskeletal: Reports: No Symptoms Skin: Reports: Mottled, Rash Neurological: Reports: No Symptoms Psychiatric: Reports: No Symptoms - Patient Data Vitals - Most Recent: Last Vital Signs Temp 96.0 F L 01/26/20 07:33 Pulse 72 01/26/20 07:33 Resp 18 01/26/20 07:33 BP 114/53 L 01/26/20 07:33 Pulse Ox 96 01/26/20 07:33 Weight - Most Recent: 261 lb 3.012 oz I&O - Last 24 hours: Intake & Output 11/01/20 11/02/20 11/02/20 22:59 06:59 14:59 Intake Total 470 Balance 470 Lab Results - Last 24 hrs: Laboratory Results - last 24 hr 01/25/20 01/25/20 01/25/20 Range/Units 11:23 16:30 20:55 WBC (4.5-11.0) K/uL RBC (4.30-5.90) M/uL Hgb (12.0-15.0) g/dL Hct (40.0-54.0) % MCV (80-98) fL MCH (27-31) pg MCHC (32-36) % Plt Count (150-400) K/uL Neut % (Auto) (36-66) % Lymph % (Auto) (24-44) % [place] % (Auto) (2-6) % Eos % (Auto) (2-4) % Baso % (Auto) (0-1) % Sodium (140-148) mmol/L Potassium (3.6-5.2) mmol/L Chloride (100-108) mmol/L Carbon Dioxide (21-32) mmol/L Anion Gap (5.0-14.0) mmol/L BUN (7-18) mg/dL Creatinine (0.8-1.3) mg/dL Est Cr Clr Drug Dosing mL/min Estimated GFR (MDRD) (>60) Glucose (74-106) mg/dL POC Glucose 161 H 208 H 209 H (74-106) MG/DL Calcium (8.5-10.1) mg/dL 01/26/20 01/26/20 01/26/20 Range/Units 04:00 04:00 07:31 WBC 8.8 (4.5-11.0) K/uL RBC 4.54 (4.30-5.90) M/uL Hgb 12.8 (12.0-15.0) g/dL Hct 39.3 L (40.0-54.0) % MCV 87 (80-98) fL MCH 28 (27-31) pg MCHC 33 (32-36) % Plt Count 215 (150-400) K/uL Neut % (Auto) 70 H (36-66) % Lymph % (Auto) 15 L (24-44) % [place] % (Auto) 11 H (2-6) % Eos % (Auto) 4 (2-4) % Baso % (Auto) 1 (0-1) % Sodium 138 L (140-148) mmol/L Potassium 3.5 L (3.6-5.2) mmol/L Chloride 104 (100-108) mmol/L Carbon Dioxide 25 (21-32) mmol/L Anion Gap 12.5 (5.0-14.0) mmol/L BUN 14 (7-18) mg/dL Creatinine 1.1 (0.8-1.3) mg/dL Est Cr Clr Drug Dosing 54.27 mL/min Estimated GFR (MDRD) > 60 (>60) Glucose 187 H (74-106) mg/dL POC Glucose 147 H (74-106) MG/DL Calcium 8.2 L (8.5-10.1) mg/dL [facility] Results - Last 24 hrs: Microbiology 01/22/20 12:42 Aerobic Blood Culture - Preliminary Blood - Venous NO GROWTH AFTER 3 DAYS Anaerobic Blood Culture - Preliminary NO GROWTH AFTER 3 DAYS 01/22/20 12:42 Aerobic Blood Culture - Final Blood - Venous - Lab Draw Staphylococcus Capitis Anaerobic Blood Culture - Preliminary NO GROWTH AFTER 3 DAYS Med Orders - Current: Current Medications Apixaban (Eliquis) 2.5 mg PO BID [facility] Last Admin: 01/25/20 20:05 Dose: 2.5 mg Documented by: Bisacodyl (Dulcolax) 10 mg RECTAL ASDIRECTED PRN PRN Reason: Constipation Cholecalciferol (Vitamin D3) 25 mcg PO DAILY [facility] Last Admin: 01/25/20 08:21 Dose: 25 mcg Documented by: Dextrose/Water (Dextrose 50% In Water) 50 ml IVPUSH ASDIRECTED PRN PRN Reason: Hypoglycemia Docusate Sodium (Colace) 100 mg PO BEDTIME [facility] Last Admin: 01/25/20 20:05 Dose: 100 mg Documented by: Doxycycline Hyclate (Vibramycin) 100 mg PO Q12H [facility] Stop: 01/29/20 09:01 Last Admin: 01/25/20 20:05 Dose: 100 mg Documented by: Furosemide (Lasix) 20 mg PO DAILY [facility] Last Admin: 01/25/20 08:27 Dose: 20 mg Documented by: Glucagon (Glucagen) 1 mg IM ASDIRECTED PRN PRN Reason: Hypoglycemia Insulin Glargine (Lantus Solostar) 36 units SUBCUT BEDTIME [facility] Last Admin: 01/25/20 21:21 Dose: 36 units Documented by: Insulin Human Lispro (Humalog) 14 unit SUBCUT WITHDINNER [facility] Last Admin: 01/25/20 17:09 Dose: 14 unit Documented by: Insulin Human Lispro (Humalog) 12 unit SUBCUT WITHLUNCH [facility] Last Admin: 01/25/20 12:10 Dose: 12 units Documented by: Insulin Human Lispro (Humalog) 8 unit SUBCUT WITHBREAKFAST [facility] Last Admin: 01/25/20 08:23 Dose: 8 units Documented by: Lactobacillus Rhamnosus (Culturelle) 1 cap PO BID [facility] Last Admin: 01/25/20 20:05 Dose: 1 cap Documented by: Lorazepam (Ativan) 0.5 mg PO Q4H PRN PRN Reason: Anxiety Melatonin (Melatonin) 6 mg PO BEDTIME [facility] Last Admin: 01/25/20 20:05 Dose: 6 mg Documented by: Metformin HCl (Glucophage) 850 mg PO BIDMEALS [facility] Last Admin: 01/25/20 17:09 Dose: 850 mg Documented by: Nystatin (Nystop) 0 gm TOP TID [facility] Last Admin: 01/25/20 20:06 Dose: 1 applic Documented by: Polyethylene Glycol (Miralax) 17 gm PO ASDIRECTED PRN PRN Reason: Constipation Last Admin: 01/24/20 13:25 Dose: 17 gm Documented by: Sodium Chloride (Saline Flush) 10 ml FLUSH ASDIRECTED PRN PRN Reason: Keep Vein Open Last Admin: 01/22/20 13:25 Dose: 10 ml Documented by: Triamcinolone Acetonide (Triamcinolone Acetonide 0.1% Crm) 0 gm TOP BID [facility] Last Admin: 01/25/20 20:05 Dose: 1 applic Documented by: Discontinued Medications Enoxaparin Sodium (Lovenox) 120 mg SUBCUT Q12H [facility] Last Admin: 01/24/20 01:55 Dose: 120 mg Documented by: Vancomycin HCl 1.9 gm/ Sodium (Chloride) 500 mls @ 250 mls/hr IV Q24H [facility] Last Admin: 01/24/20 13:25 Dose: 250 mls/hr Documented by: Sodium Chloride (Normal Saline) 1,000 mls @ 100 mls/hr IV ASDIRECTED [facility] Last Admin: 01/23/20 23:59 Dose: 100 mls/hr Documented by: - Exam General: Reports: Oriented, Mild Distress HEENT: Reports: Pupils Equal, Pupils Reactive, EOMI, Mucous Membr. Moist/[place] Neck: Reports: Supple Lungs: Reports: Clear to Auscultation, Normal Respiratory Effort Cardiovascular: Reports: Regular Rate, Regular Rhythm Skin: Reports: Warm, Rash Wound/Incisions: Reports: Healing Well, Erythema, Erythema Improving Psy/Mental Status: Reports: Normal Mood, Labile Mood
== END 2020-01-26 13:19 | disposition home or self-care (01) | DRG 872 ==
LOC: JP.ED 12:02 → JP.MS 15:25
PROVIDERS: ADMIT Internal Medicine; ATTEND Internal Medicine
DX: L03.115 Cellulitis of right lower limb (principal); R40.4 Transient alteration of awareness; A41.02 Sepsis due to Methicillin resistant Staphylococcus aureus; I10 Essential (primary) hypertension; E11.9 Type 2 diabetes mellitus without complications; F03.90 Unspecified dementia, unspecified severity, without behavioral disturbance, psychotic disturbance, mood disturbance, and anxiety; G47.00 Insomnia, unspecified; I83.008 Varicose veins of unspecified lower extremity with ulcer other part of lower leg; H54.7 Unspecified visual loss; I25.10 Atherosclerotic heart disease of native coronary artery without angina pectoris; I50.9 Heart failure, unspecified; K21.9 Gastro-esophageal reflux disease without esophagitis; I69.30 Unspecified sequelae of cerebral infarction; I95.9 Hypotension, unspecified; G89.29 Other chronic pain; M54.9 Dorsalgia, unspecified; E66.9 Obesity, unspecified; I87.2 Venous insufficiency (chronic) (peripheral); Z95.0 Presence of cardiac pacemaker; Z95.1 Presence of aortocoronary bypass graft; Z86.73 Personal history of transient ischemic attack (TIA), and cerebral infarction without residual deficits; Z68.37 Body mass index [BMI] 37.0-37.9, adult; Z88.8 Allergy status to other drugs, medicaments and biological substances; Z79.4 Long term (current) use of insulin; Z79.899 Other long term (current) drug therapy; Z95.5 Presence of coronary angioplasty implant and graft; Z79.01 Long term (current) use of anticoagulants; I11.0 Hypertensive heart disease with heart failure; Z20.828 Contact with and (suspected) exposure to other viral communicable diseases
CPT/HCPCS: 36415; 51702; 71045 ×2; 80053; 81001; 83605; 85025; 86140; 87040 ×2; 87077; 87186; 96365; 99285; J3370; J7040; U0002; 80048; 82962; 93970; 93970-26; 97110-GP; 97162-GP; 97535-GP; A9270-GY; J1650; J1815; J1815-GY; J7030

== ENCOUNTER 2020-08-31 13:02 | Inpatient (IN) | payer MEDICARE ==
[2020-08-31] MEDS ORDERED: Lactated Ringers 1,000 ML IV SCH ×3 (13:15→16:15)
--- NOTE | 2020-08-31 13:24 | EDM.PDOC ---
ED HPI GENERAL MEDICAL PROBLEM - General Chief Complaint: Possible Sepsis Stated Complaint: MEDICAL Time Seen by Provider: 08/31/20 13:21 Source of Information: Reports: Patient History Limitations: Reports: No Limitations - History of Present Illness INITIAL COMMENTS - FREE TEXT/NARRATIVE: pt arrived vbearly reponsive. He has some infection in the groin. He was started on doxycline today. He became somewhat unresponsive today. Pt at this time is not reponding well. Onset: Today, Other (pt became unresponsive. ) Duration: Hour(s): Location: Reports: Head, Generalized Associated Symptoms: Reports: Diaphoresis, Weakness - Related Data Allergies Allergy/AdvReac Type Severity Reaction Status Date / Time ANA Inhibitors Allergy Cannot Verified 08/31/20 15:26 Remember rosuvastatin calcium Allergy Cannot Verified 01/22/20 13:19 [From Crestor] Remember Home Meds: Home Meds Furosemide 20 mg PO DAILY 04/10/15 [History] Spironolact/Hydrochlorothiazid [Spironolactone-HCTZ 25-25] 1 tab PO DAILY 04/10/15 [History] metFORMIN [Glucophage] 850 mg PO BIDMEALS 04/10/15 [History] Metoprolol Tartrate 50 mg PO BID 02/23/18 [History] Insulin Glargine,Hum.Rec.Anlog [Lantus Solostar] 36 units SUBCUT BEDTIME 05/06/19 [History] Insulin Lispro [HumaLOG] 1 unit SUBCUT ASDIRECTED 05/06/19 [History] Acetaminophen [Mapap] 650 mg PO Q6H PRN 01/22/20 [History] Bisacodyl [Laxative Suppository] 10 mg PO ASDIRECTED 01/22/20 [History] Cholecalciferol (Vitamin D3) [Vitamin D3] 25 mcg PO DAILY 01/22/20 [History] Docusate Sodium 100 mg PO BEDTIME 01/22/20 [History] LORazepam [Ativan] 0.5 mg PO Q4H PRN 01/22/20 [History] Melatonin 6 mg PO BEDTIME 01/22/20 [History] Nystatin 1 dose TOP TID 01/22/20 [History] Triamcinolone Acetonide [Triamcinolone Acetonide 0.1% Crm] 1 dose PO BID 01/22/20 [History] polyethylene glycoL 3350 [MiraLAX] 1 dose PO ASDIRECTED 01/22/20 [History] Apixaban [Eliquis] 2.5 mg PO BID tablet 01/26/20 [Rx] Doxycycline [Vibramycin] 100 mg PO Q12H cap 01/26/20 [Rx] Magnesium Chloride [Magnesium] 64 mg PO DAILY 08/31/20 [History] Simvastatin 20 mg PO DAILY 08/31/20 [History] Warfarin [Coumadin] 5 mg PO DAILY 08/31/20 [History] Past Medical History HEENT History: Reports: Impaired Vision Cardiovascular History: Reports: CAD, Heart Failure, Pacemaker, Other (See Below) Other Cardiovascular History: hypotension Gastrointestinal History: Reports: GERD Musculoskeletal History: Reports: Back Pain, Chronic Neurological History: Reports: CVA Endocrine/Metabolic History: Reports: Diabetes, Type II, Obesity/BMI 30+ Dermatologic History: Reports: Venous Stasis Dermatitis - Infectious Disease History Infectious Disease History: Reports: Chicken Pox, Mononucleosis - Past Surgical History Cardiovascular Surgical History: Reports: Coronary Artery Bypass, Coronary Artery Stent GI Surgical History: Reports: Colonoscopy, Hernia, Inguinal Social & Family History - Family History Family Medical History: No Pertinent Family History - Caffeine Use Caffeine Use: Reports: Coffee ED ROS GENERAL - Review of Systems Review Of Systems: See Below Constitutional: Reports: Fever, Chills, Weakness HEENT: Reports: No Symptoms Respiratory: Reports: No Symptoms Cardiovascular: Reports: No Symptoms Endocrine: Reports: No Symptoms GI/Abdominal: Reports: Decreased Appetite : Reports: No Symptoms Musculoskeletal: Reports: No Symptoms Skin: Reports: No Symptoms ED EXAM, GENERAL - Physical Exam Exam: See Below Free Text/Narrative:: pt is cared for by his . When she got him up this am she was very weak and bearly responsive. She did call Dr Murphy and because of a groin infection he placed him on doxycline. Exam Limited By: No Limitations General Appearance: Alert, Obtunded, Other (pt is not respondiong pupils are e qual and reactive. ) Ears: Normal TMs Nose: Normal Inspection Throat/Mouth: Normal Inspection Head: Atraumatic Neck: Normal Inspection Respiratory/Chest: No Respiratory Distress Cardiovascular: Regular Rate, Rhythm, Tachycardia GI/Abdominal: Soft, Non-Tender (Male) Exam: Other (pt has a very smelly red area in the left groin area. This looked like it started out like a yeast infection which may be secondarly infected. ) Rectal (Males) Exam: Deferred Back Exam: Normal Inspection Extremities: Normal Inspection Neurological: Unresponsive, Other ( after fluids he did begin to respond. ) Course - Vital Signs Last Recorded V/S: Last Vital Signs Temp 37.6 C 08/31/20 13:02 Pulse 60 08/31/20 14:47 Resp 25 H 08/31/20 14:47 BP 123/61 08/31/20 14:47 Pulse Ox 95 08/31/20 13:41 - Orders/Labs/Meds Orders: Active Orders 24 hr Category Date Time Status Admission Status [Patient Status] [ADT] Routine ADT 08/31/20 15:57 Active Cardiac Monitoring [RC] .As Directed Care 08/31/20 13:08 Active Loja Catheter Insertion [Insert Urinary Catheter] [OM. Care 08/31/20 14:00 Ordered PC] Q24H Urinary Catheter Assessment [RC] ASDIRECTED Care 08/31/20 13:59 Active CULTURE BLOOD [BC] Urgent Lab 08/31/20 13:15 Received CULTURE BLOOD [BC] Urgent Lab 08/31/20 13:40 Received CULTURE URINE [RM] Stat Lab 08/31/20 15:05 Received LACTIC ACID [CHEM] Routine Lab 08/31/20 13:50 Ordered Lactated Ringers [Ringers, Lactated] 1,000 ml Med 08/31/20 13:15 Active IV ASDIRECTED Lactated Ringers [Ringers, Lactated] 1,000 ml Med 08/31/20 14:00 Active IV ASDIRECTED Lactated Ringers [Ringers, Lactated] 1,000 ml Med 08/31/20 16:15 Ordered IV ASDIRECTED Blood Culture x2 Reflex Set [OM.PC] Urgent Oth 08/31/20 13:19 Ordered Medication Orders Lactated Ringer's (Ringers, Lactated) 1,000 mls @ 999 mls/hr IV ASDIRECTED [place] Last Admin: 08/31/20 13:05 Dose: 999 mls/hr Documented by: RAFAELA Lactated Ringer's (Ringers, Lactated) 1,000 mls @ 999 mls/hr IV ASDIRECTED [place] Last Admin: 08/31/20 14:02 Dose: 999 mls/hr Documented by: [email or web address] Labs: Laboratory Tests 08/31/20 08/31/20 08/31/20 Range/Units 13:04 13:15 13:15 WBC 15.2 H (4.5-11.0) K/uL RBC 5.49 (4.30-5.90) M/uL Hgb 15.0 D (12.0-15.0) g/dL Hct 46.6 (40.0-54.0) % MCV 85 (80-98) fL MCH 27 (27-31) pg MCHC 32 (32-36) % Plt Count 217 (150-400) K/uL Neut % (Auto) 82.9 H (36-66) % Lymph % (Auto) 8.5 L (24-44) % [place] % (Auto) 8.5 H (2-6) % Eos % (Auto) 0.0 L (2-4) % Baso % (Auto) 0.1 (0-1) % Sodium 137 L (140-148) mmol/L Potassium 3.4 L (3.6-5.2) mmol/L Chloride 96 L (100-108) mmol/L Carbon Dioxide 27 (21-32) mmol/L Anion Gap 17.4 H (5.0-14.0) mmol/L BUN 22 H D (7-18) mg/dL Creatinine 1.6 H (0.8-1.3) mg/dL Est Cr Clr Drug Dosing 36.82 mL/min Estimated GFR (MDRD) 42 L (>60) Glucose 184 H (74-106) mg/dL Lactic Acid (0.4-2.0) mmol/L Calcium 9.2 (8.5-10.1) mg/dL Total Bilirubin 0.7 (0.2-1.0) mg/dL AST 10 L (15-37) U/L ALT 11 L (12-78) U/L Alkaline Phosphatase 77 (46-116) U/L Total Protein 7.3 (6.4-8.2) g/dL Albumin 3.1 L (3.4-5.0) g/dL Globulin 4.2 H (2.3-3.5) g/dL Albumin/Globulin Ratio 0.7 L (1.2-2.2) Urine Color Yellow (YELLOW) Urine Appearance Cloudy A (CLEAR) Urine pH 5.5 (5.0-8.0) Ur Specific [place] 1.020 (1.008-1.030) Urine Protein Negative (NEGATIVE) mg/dL Urine Glucose (UA) Negative (NEGATIVE) mg/dL Urine Ketones Negative (NEGATIVE) mg/dL Urine Occult Blood Trace-lysed H (NEGATIVE) Urine Nitrite Positive H (NEGATIVE) Urine Bilirubin Negative (NEGATIVE) Urine Urobilinogen 0.2 (0.2-1.0) EU/dL Ur Leukocyte Esterase Small H (NEGATIVE) Urine RBC 0-5 (0-5) Urine WBC 10-20 H (0-5) Ur Epithelial Cells Few Amorphous Sediment Not seen Urine Bacteria Many Urine Mucus Few Urine Other See note 08/31/20 Range/Units 13:15 WBC (4.5-11.0) K/uL RBC (4.30-5.90) M/uL Hgb (12.0-15.0) g/dL Hct (40.0-54.0) % MCV (80-98) fL MCH (27-31) pg MCHC (32-36) % Plt Count (150-400) K/uL Neut % (Auto) (36-66) % Lymph % (Auto) (24-44) % [place] % (Auto) (2-6) % Eos % (Auto) (2-4) % Baso % (Auto) (0-1) % Sodium (140-148) mmol/L Potassium (3.6-5.2) mmol/L Chloride (100-108) mmol/L Carbon Dioxide (21-32) mmol/L Anion Gap (5.0-14.0) mmol/L BUN (7-18) mg/dL Creatinine (0.8-1.3) mg/dL Est Cr Clr Drug Dosing mL/min Estimated GFR (MDRD) (>60) Glucose (74-106) mg/dL Lactic Acid 4.3 H (0.4-2.0) mmol/L Calcium (8.5-10.1) mg/dL Total Bilirubin (0.2-1.0) mg/dL AST (15-37) U/L ALT (12-78) U/L Alkaline Phosphatase (46-116) U/L Total Protein (6.4-8.2) g/dL Albumin (3.4-5.0) g/dL Globulin (2.3-3.5) g/dL Albumin/Globulin Ratio (1.2-2.2) Urine Color (YELLOW) Urine Appearance (CLEAR) Urine pH (5.0-8.0) Ur Specific [place] (1.008-1.030) Urine Protein (NEGATIVE) mg/dL Urine Glucose (UA) (NEGATIVE) mg/dL Urine Ketones (NEGATIVE) mg/dL Urine Occult Blood (NEGATIVE) Urine Nitrite (NEGATIVE) Urine Bilirubin (NEGATIVE) Urine Urobilinogen (0.2-1.0) EU/dL Ur Leukocyte Esterase (NEGATIVE) Urine RBC (0-5) Urine WBC (0-5) Ur Epithelial Cells Amorphous Sediment Urine Bacteria Urine Mucus Urine Other Meds: Medications Generic Name Dose Route Start Last Admin Trade Name Freq PRN Reason Stop Dose Admin Lactated Ringer's 1,000 mls @ 999 mls/hr 08/31/20 13:15 08/31/20 13:05 Ringers, Lactated IV 999 mls/hr ASDIRECTED [place] Administration Lactated Ringer's 1,000 mls @ 999 mls/hr 08/31/20 14:00 08/31/20 14:02 Ringers, Lactated IV 999 mls/hr ASDIRECTED [place] Administration Discontinued Medications Generic Name Dose Route Start Last Admin Trade Name Freq PRN Reason Stop Dose Admin Piperacillin/Tazobactam/ 100 mls @ 100 mls/hr 08/31/20 14:15 08/31/20 14:47 Dextrose 4.5 gm/ Premix IV 08/31/20 15:14 100 mls/hr ONETIME ONE Administration - Re-Assessments/Exams Free Text/Narrative Re-Assessment/Exam: 08/31/20 15:51 wbc is elevated. His urine is infected and has been cultured. His lactic acid is greater than 4. Departure - Departure Time of Disposition: 15:51 Disposition: Admitted As Inpatient 66 Condition: Fair Clinical Impression: Sepsis, UTI (urinary tract infection), Infected abrasion of groin - Discharge Information Referrals: PCP,None [Primary Care Provider] - Forms: ED Department Discharge Care Plan Goals: admit to Dr Murphy Sepsis Event Note (ED) - Focused Exam Vital Signs: Vital Signs Temp Pulse Resp BP Pulse Ox 08/31/20 14:47 60 25 H 123/61 08/31/20 14:16 60 26 H 127/56 L 08/31/20 14:01 63 29 H 107/62 08/31/20 13:51 59 L 102/57 L 08/31/20 13:41 60 23 H 104/57 L 95 08/31/20 13:31 60 20 112/48 L 95 08/31/20 13:21 58 L 28 H 114/56 L 95 08/31/20 13:02 37.6 C 60 21 H 112/41 L 95 - My Orders Last 24 Hours: My Active Orders 08/31/20 13:08 Cardiac Monitoring [RC] .As Directed 08/31/20 13:15 CULTURE BLOOD [BC] Urgent Lactated Ringers [Ringers, Lactated] 1,000 ml IV ASDIRECTED 08/31/20 13:19 Blood Culture x2 Reflex Set [OM.PC] Urgent 08/31/20 13:40 CULTURE BLOOD [BC] Urgent 08/31/20 13:50 LACTIC ACID [CHEM] Routine 08/31/20 13:59 Urinary Catheter Assessment [RC] ASDIRECTED 08/31/20 14:00 Loja Catheter Insertion [Insert Urinary Catheter] [OM.PC] Q24H Lactated Ringers [Ringers, Lactated] 1,000 ml IV ASDIRECTED 08/31/20 15:05 CULTURE URINE [RM] Stat 08/31/20 16:15 Lactated Ringers [Ringers, Lactated] 1,000 ml IV ASDIRECTED - Assessment/Plan Last 24 Hours: My Active Orders 08/31/20 13:08 Cardiac Monitoring [RC] .As Directed 08/31/20 13:15 CULTURE BLOOD [BC] Urgent Lactated Ringers [Ringers, Lactated] 1,000 ml IV ASDIRECTED 08/31/20 13:19 Blood Culture x2 Reflex Set [OM.PC] Urgent 08/31/20 13:40 CULTURE BLOOD [BC] Urgent 08/31/20 13:50 LACTIC ACID [CHEM] Routine 08/31/20 13:59 Urinary Catheter Assessment [RC] ASDIRECTED 08/31/20 14:00 Loja Catheter Insertion [Insert Urinary Catheter] [OM.PC] Q24H Lactated Ringers [Ringers, Lactated] 1,000 ml IV ASDIRECTED 08/31/20 15:05 CULTURE URINE [RM] Stat 08/31/20 16:15 Lactated Ringers [Ringers, Lactated] 1,000 ml IV ASDIRECTED
--- NOTE | 2020-08-31 13:38 | CR ---
CHEST: Portable 621 at 1:29 PM CLINICAL HISTORY:Fever, SOB COMPARISON:December 2019 FINDINGS: Patient has permanent cardiac pacer. There has been previous sternotomy. Pulmonary vascular is normal. There is minimal patchy density in the infrahilar regions. Some of this is chronic. There may be some superimposed atelectasis. Impression: Previous sternotomy Prominent cardiac pacer No acute cardiopulmonary process.
[2020-08-31] MEDS ORDERED: Piperacillin/Tazobactam 4.5 GM in Sodium Chloride 0.9% 100 ML IV ONE (13:53)
[2020-08-31] MEDS ORDERED: Piperacillin/Tazobactam/Dext 4.5 GM in Premix Bag 1 BAG IV ONE (14:15)
--- NOTE | 2020-08-31 17:23 | PCM.HP.2 ---
H&P History of Present Illness - General Date of Service: 08/31/20 Admit Problem/Dx: Admission Diagnosis/Problem Admission Diagnosis/Problem Sepsis due to urinary tract infection Source of Information: Family History Limitations: Reports: Altered Mental Status - History of Present Illness Initial Comments - Free Text/Narative: He is living at home and his is taking care of him..His called this morning stating he was very weak and was unable to wake him up. I told her to bring him into the hospital ER. She called later stating he was better and had taken his medicine. She then called later and said he was weak again and unresponsive not being able to communicate again and told her she should have him brought into the ER. He had a similar episode in the past and it was due to sepsis. Onset of Symptoms: Reports: Today Severity: Moderate - Related Data Allergies/Adverse Reactions: Allergies Allergy/AdvReac Type Severity Reaction Status Date / Time ANA Inhibitors Allergy Unknown Cannot Verified 08/31/20 17:03 Remember rosuvastatin calcium Allergy Unknown Cannot Verified 08/31/20 17:03 [From [facility]] Remember Home Medications: Home Meds Furosemide 20 mg PO DAILY 04/10/15 [History] metFORMIN [Glucophage] 850 mg PO BIDMEALS 04/10/15 [History] Metoprolol Tartrate 25 mg PO BID 02/23/18 [History] Insulin Glargine,Hum.Rec.Anlog [Lantus Solostar] 36 units SUBCUT BEDTIME 05/06/19 [History] Insulin Lispro [HumaLOG] 1 unit SUBCUT ASDIRECTED 05/06/19 [History] Acetaminophen [Mapap] 650 mg PO Q6H PRN 01/22/20 [History] Bisacodyl [Laxative Suppository] 10 mg PO ASDIRECTED PRN 01/22/20 [History] Cholecalciferol (Vitamin D3) [Vitamin D3] 25 mcg PO DAILY 01/22/20 [History] Docusate Sodium 100 mg PO BEDTIME 01/22/20 [History] LORazepam [Ativan] 1 mg PO BEDTIME PRN 01/22/20 [History] Melatonin 6 mg PO BEDTIME 01/22/20 [History] Nystatin 1 dose TOP TID 01/22/20 [History] Triamcinolone Acetonide [Triamcinolone Acetonide 0.1% Crm] 1 dose PO BID 01/22/20 [History] polyethylene glycoL 3350 [MiraLAX] 1 dose PO DAILY 01/22/20 [History] Apixaban [Eliquis] 2.5 mg PO BID tablet 01/26/20 [Rx] Doxycycline [Doxycycline Hyclate] 100 mg PO BID 08/31/20 [History] Potassium Gluconate [Potassium] 2,400 mg PO DAILY 08/31/20 [History] Simvastatin 20 mg PO DAILY 08/31/20 [History] Spironolactone [Aldactone] 25 mg PO DAILY 08/31/20 [History] Temazepam [Restoril] 15 - 30 mg PO BEDTIME PRN 08/31/20 [History] Past Medical History HEENT History: Reports: Impaired Vision Cardiovascular History: Reports: CAD, Heart Failure, Pacemaker, Other (See Below) Other Cardiovascular History: hypotension Gastrointestinal History: Reports: GERD Musculoskeletal History: Reports: Back Pain, Chronic Neurological History: Reports: CVA Other Neuro History: right sided weakness Endocrine/Metabolic History: Reports: Diabetes, Type II, Obesity/BMI 30+ Hematologic History: Reports: None Dermatologic History: Reports: Venous Stasis Dermatitis - Infectious Disease History Infectious Disease History: Reports: Chicken Pox, Mononucleosis, Mumps - Past Surgical History Head Surgeries/Procedures: Reports: None Cardiovascular Surgical History: Reports: Coronary Artery Bypass, Coronary Artery Stent GI Surgical History: Reports: Colonoscopy, Hernia, Inguinal Endocrine Surgical History: Reports: None Musculoskeletal Surgical History: Reports: None Other Musculoskeletal 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 Dermatological Surgical History: Reports: None Social & Family History - Family History Family Medical History: No Pertinent Family History - Tobacco Use Tobacco Use Status *Q: Former Tobacco User Years of Tobacco use: 30 Packs/Tins Daily: 1 Used Tobacco, but Quit: Yes Month/Year Tobacco Last Used: 12/1980 - Caffeine Use Caffeine Use: Reports: Coffee - Recreational Drug Use Recreational Drug Use: No H&P Review of Systems - Review of Systems: Review Of Systems: See Below General: Reports: Weakness HEENT: Reports: Dysphasia Pulmonary: Reports: No Symptoms Cardiovascular: Reports: No Symptoms Gastrointestinal: Reports: Diarrhea Genitourinary: Reports: No Symptoms Skin: Reports: Rash Neurological: Reports: Confusion, Difficulty Walking, Weakness Exam - Exam Exam: See Below - Vital Signs Vital Signs: Last Vital Signs Temp 97.3 F 06/08/21 16:31 Pulse 60 08/31/20 16:31 Resp 12 08/31/20 16:31 BP 113/51 L 08/31/20 16:31 Pulse Ox 94 L 08/31/20 16:31 Weight: 261 lb 11.2 oz - Exam General: Moderate Distress, Lethargic HEENT: PERRLA Neck: Supple Lungs: Clear to Auscultation GI/Abdominal Exam: Normal Bowel Sounds Extremities: Pedal Edema Peripheral Pulses: 1+: Radial (L), Radial (R) Skin: Warm, Dry DTR: 1+: Bicep (L), Bicep (R) Psychiatric: Labile Mood - Patient Data Lab Results Last 24 hrs: Laboratory Results - last 24 hr 08/31/20 08/31/20 08/31/20 Range/Units 13:04 13:15 13:15 WBC 15.2 H (4.5-11.0) K/uL RBC 5.49 (4.30-5.90) M/uL Hgb 15.0 D (12.0-15.0) g/dL Hct 46.6 (40.0-54.0) % MCV 85 (80-98) fL MCH 27 (27-31) pg MCHC 32 (32-36) % Plt Count 217 (150-400) K/uL Neut % (Auto) 82.9 H (36-66) % Lymph % (Auto) 8.5 L (24-44) % [place] % (Auto) 8.5 H (2-6) % Eos % (Auto) 0.0 L (2-4) % Baso % (Auto) 0.1 (0-1) % Sodium 137 L (140-148) mmol/L Potassium 3.4 L (3.6-5.2) mmol/L Chloride 96 L (100-108) mmol/L Carbon Dioxide 27 (21-32) mmol/L Anion Gap 17.4 H (5.0-14.0) mmol/L BUN 22 H D (7-18) mg/dL Creatinine 1.6 H (0.8-1.3) mg/dL Est Cr Clr Drug Dosing 36.82 mL/min Estimated GFR (MDRD) 42 L (>60) Glucose 184 H (74-106) mg/dL Lactic Acid (0.4-2.0) mmol/L Calcium 9.2 (8.5-10.1) mg/dL Total Bilirubin 0.7 (0.2-1.0) mg/dL AST 10 L (15-37) U/L ALT 11 L (12-78) U/L Alkaline Phosphatase 77 (46-116) U/L Total Protein 7.3 (6.4-8.2) g/dL Albumin 3.1 L (3.4-5.0) g/dL Globulin 4.2 H (2.3-3.5) g/dL Albumin/Globulin Ratio 0.7 L (1.2-2.2) Urine Color Yellow (YELLOW) Urine Appearance Cloudy A (CLEAR) Urine pH 5.5 (5.0-8.0) Ur Specific [place] 1.020 (1.008-1.030) Urine Protein Negative (NEGATIVE) mg/dL Urine Glucose (UA) Negative (NEGATIVE) mg/dL Urine Ketones Negative (NEGATIVE) mg/dL Urine Occult Blood Trace-lysed H (NEGATIVE) Urine Nitrite Positive H (NEGATIVE) Urine Bilirubin Negative (NEGATIVE) Urine Urobilinogen 0.2 (0.2-1.0) EU/dL Ur Leukocyte Esterase Small H (NEGATIVE) Urine RBC 0-5 (0-5) Urine WBC 10-20 H (0-5) Ur Epithelial Cells Few Amorphous Sediment Not seen Urine Bacteria Many Urine Mucus Few Urine Other See note 08/31/20 Range/Units 13:15 WBC (4.5-11.0) K/uL RBC (4.30-5.90) M/uL Hgb (12.0-15.0) g/dL Hct (40.0-54.0) % MCV (80-98) fL MCH (27-31) pg MCHC (32-36) % Plt Count (150-400) K/uL Neut % (Auto) (36-66) % Lymph % (Auto) (24-44) % [place] % (Auto) (2-6) % Eos % (Auto) (2-4) % Baso % (Auto) (0-1) % Sodium (140-148) mmol/L Potassium (3.6-5.2) mmol/L Chloride (100-108) mmol/L Carbon Dioxide (21-32) mmol/L Anion Gap (5.0-14.0) mmol/L BUN (7-18) mg/dL Creatinine (0.8-1.3) mg/dL Est Cr Clr Drug Dosing mL/min Estimated GFR (MDRD) (>60) Glucose (74-106) mg/dL Lactic Acid 4.3 H (0.4-2.0) mmol/L Calcium (8.5-10.1) mg/dL Total Bilirubin (0.2-1.0) mg/dL AST (15-37) U/L ALT (12-78) U/L Alkaline Phosphatase (46-116) U/L Total Protein (6.4-8.2) g/dL Albumin (3.4-5.0) g/dL Globulin (2.3-3.5) g/dL Albumin/Globulin Ratio (1.2-2.2) Urine Color (YELLOW) Urine Appearance (CLEAR) Urine pH (5.0-8.0) Ur Specific [place] (1.008-1.030) Urine Protein (NEGATIVE) mg/dL Urine Glucose (UA) (NEGATIVE) mg/dL Urine Ketones (NEGATIVE) mg/dL Urine Occult Blood (NEGATIVE) Urine Nitrite (NEGATIVE) Urine Bilirubin (NEGATIVE) Urine Urobilinogen (0.2-1.0) EU/dL Ur Leukocyte Esterase (NEGATIVE) Urine RBC (0-5) Urine WBC (0-5) Ur Epithelial Cells Amorphous Sediment Urine Bacteria Urine Mucus Urine Other Result Diagrams: 09/01/20 06:05 09/01/20 06:05 Sepsis Event Note - Evaluation Sepsis Screening Result: No Definite Risk - Focused Exam Vital Signs: Vital Signs Temp Pulse Pulse Resp BP Pulse Ox 08/31/20 16:31 97.3 F 60 12 113/51 L 94 L 08/31/20 14:47 60 25 H 123/61 08/31/20 14:16 60 26 H 127/56 L 08/31/20 14:01 63 29 H 107/62 08/31/20 13:51 59 L 102/57 L 08/31/20 13:41 60 23 H 104/57 L 95 08/31/20 13:31 60 20 112/48 L 95 08/31/20 13:21 58 L 28 H 114/56 L 95 08/31/20 13:02 99.7 F 60 21 H 112/41 L 95 Problem List Initiated/Reviewed/Updated: Yes Orders Last 24hrs: Active Orders 24 hr Category Date Time Status Admission Status [Patient Status] [ADT] Routine ADT 08/31/20 15:57 Active Ambulate [RC] PER UNIT ROUTINE Care 08/31/20 16:37 Active Dietary Supplements [RC] BIDMEALS Care 08/31/20 16:41 Active Loja Catheter Insertion [Insert Urinary Catheter] [OM. Care 08/31/20 14:00 Ordered PC] Q24H Urinary Catheter Assessment [RC] ASDIRECTED Care 08/31/20 13:59 Active Consult to Spiritual Care [CONS] Routine Cons 08/31/20 17:10 Active Consistent Carbohydrate Diet [DIET] Diet 08/31/20 Dinner Active CBC WITH AUTO DIFF [HEME] Routine Lab 09/01/20 05:11 Ordered COMPREHENSIVE METABOLIC PN,CMP [CHEM] Routine Lab 09/01/20 05:11 Ordered CULTURE BLOOD [BC] Urgent Lab 08/31/20 13:15 Received CULTURE BLOOD [BC] Urgent Lab 08/31/20 13:40 Received CULTURE URINE [RM] Stat Lab 08/31/20 15:05 Received LACTIC ACID [CHEM] Routine Lab 08/31/20 13:50 Ordered LACTIC ACID [CHEM] Routine Lab 08/31/20 20:00 Ordered Lactated Ringers [Ringers, Lactated] 1,000 ml Med 08/31/20 16:15 Active IV ASDIRECTED Lactated Ringers [Ringers, Lactated] 1,000 ml Med 08/31/20 17:15 Ordered IV ASDIRECTED Piperacillin/Tazobactam/Dext [Zosyn in Dextrose Iso- Med 08/31/20 22:00 Active Osmotic 4.5 GM/100 ML] 4.5 gm Premix Bag 1 bag IV Q6H Blood Culture x2 Reflex Set [OM.PC] Urgent Oth 08/31/20 13:19 Ordered Medication Orders Lactated Ringer's (Ringers, Lactated) 1,000 mls @ 500 mls/hr IV ASDIRECTED [place] Last Admin: 08/31/20 16:35 Dose: 500 mls/hr Documented by: ZITA Piperacillin/Tazobactam/ (Dextrose 4.5 gm/ Premix) 100 mls @ 200 mls/hr IV Q6H [place] Lactated Ringer's (Ringers, Lactated) 1,000 mls @ 125 mls/hr IV ASDIRECTED [place] Stop: 09/02/20 17:16 Assessment/Plan Comment:: Assessment/Plan: #1. Sepsis. He has been started on Zosyn and cultures are pending. WBC 15.2 today. Will repeat a CBC and CMP in the morning. #2. DM II: Will monitor BS and adjust as needed. #3. HTN: BP 107/62 upon admission. #4. Dehydration: Will rehydrate slowly #5. Amnesia: Chronic #6. hx. of TIA #7. HLD: Stable #8. Atrial Fib. with pacemaker in place. #9. Obesity: Chronic - Mortality Measure Prognosis:: Poor
[2020-08-31] MEDS ORDERED: Bisacodyl 10 MG Supp RECTAL PRN (17:51)
[2020-08-31] MEDS ORDERED: Acetaminophen 325 MG Tab PO PRN (17:51)
[2020-08-31] MEDS ORDERED: 50% Dextrose in Water 50 ML Syringe IVPUSH PRN (17:51)
[2020-08-31] MEDS ORDERED: Glucagon,Human Recombinant 1 MG Vial IM PRN (17:51)
[2020-08-31] MEDS: Lactated Ringers 1,000 ML IV SCH (17:58)
[2020-08-31] MEDS: Insulin Glargine,Human Rec. Analog 100 Units/ML 3 ML Pen SUBCUT SCH (21:41)
[2020-08-31] MEDS: Apixaban 2.5 MG Tab PO SCH (21:41)
[2020-08-31] MEDS: Docusate Sodium 100 MG Cap PO SCH (21:42)
[2020-08-31] MEDS ORDERED: Sodium Chloride 0.9% 50 ML ONE (21:55)
[2020-08-31] MEDS ORDERED: Piperacillin/Tazobactam 4.5 GM in Sodium Chloride 0.9% 100 ML IV SCH (22:00)
[2020-08-31] MEDS ORDERED: Piperacillin/Tazobactam/Dext 4.5 GM in Premix Bag 1 BAG IV SCH (22:00)
[2020-08-31] MEDS: Piperacillin/Tazobactam 2.25 GM in Sodium Chloride 0.9% 50 ML IV SCH (22:15)
[2020-09-01] MEDS: Lactated Ringers 1,000 ML IV SCH ×3 (02:31→20:12)
[2020-09-01] MEDS: Piperacillin/Tazobactam 2.25 GM in Sodium Chloride 0.9% 50 ML IV SCH (04:16)
[2020-09-01] MEDS ORDERED: Acetaminophen 325 MG Tab PO PRN (07:32)
[2020-09-01] MEDS: Insulin Lispro 100 Unit/ML 3 ML KwikPen SUBCUT SCH ×5 (08:30→20:03)
[2020-09-01] MEDS: Cholecalciferol (Vitamin D3) 25 MCG Tab PO SCH (08:35)
[2020-09-01] MEDS: Furosemide 20 MG Tab PO SCH (08:35)
[2020-09-01] MEDS: Apixaban 2.5 MG Tab PO SCH ×2 (08:35→20:01)
[2020-09-01] MEDS ORDERED: Dimethicone 20%/Zinc Oxide 25% 56 GM Spray Bottle TOP PRN (10:18)
[2020-09-01] MEDS: Piperacillin/Tazobactam/Dext 4.5 GM in Premix Bag 1 BAG IV SCH ×3 (10:53→21:03)
[2020-09-01] MEDS ORDERED: guaiFENesin/Dextromethorphan 100-10 MG/5 ML Soln 10 ML Cup PO PRN (14:56)
--- NOTE | 2020-09-01 15:27 | CR ---
CHEST: Portable 09/01/2020 at 3:20 PM CLINICAL HISTORY:Cough COMPARISON:08/31/2020 at 129 FINDINGS: Heart size and pulmonary vascularity are within normal limits for semiupright portable chest. Patient has a permanent cardiac pacer. There has been previous sternotomy. There are atherosclerotic changes in the aorta. There is some gaseous distention of bowel in the upper abdomen. IMPRESSION: No evidence of infiltrate or CHF No significant change from prior studies
[2020-09-01] MEDS ORDERED: Potassium Chloride 20 MEQ Tab.ER PO ONE (17:00)
[2020-09-01] MEDS ORDERED: 50% Dextrose in Water 50 ML Syringe IVPUSH PRN (17:02)
[2020-09-01] MEDS ORDERED: Glucagon,Human Recombinant 1 MG Vial IM PRN (17:02)
[2020-09-01] MEDS: Insulin Glargine,Human Rec. Analog 100 Units/ML 3 ML Pen SUBCUT SCH (20:01)
[2020-09-01] MEDS: Docusate Sodium 100 MG Cap PO SCH (20:01)
[2020-09-02] MEDS: Piperacillin/Tazobactam/Dext 4.5 GM in Premix Bag 1 BAG IV SCH ×2 (03:34→10:30)
[2020-09-02] MEDS: Lactated Ringers 1,000 ML IV SCH ×2 (04:31→13:03)
[2020-09-02] MEDS: Insulin Lispro 100 Unit/ML 3 ML KwikPen SUBCUT SCH ×4 (08:05→20:44)
[2020-09-02] MEDS: Cholecalciferol (Vitamin D3) 25 MCG Tab PO SCH (08:09)
[2020-09-02] MEDS: Furosemide 20 MG Tab PO SCH (08:09)
[2020-09-02] MEDS: Apixaban 2.5 MG Tab PO SCH ×2 (08:09→20:43)
--- NOTE | 2020-09-02 09:44 | PCM.PN ---
- General Info Date of Service: 09/01/20 Subjective Update: He has a significant cough. His is concerned about a lung problem/aspiration. Functional Status: Reports: Pain Controlled - Review of Systems General: Reports: Weakness HEENT: Reports: No Symptoms Pulmonary: Reports: No Symptoms Cardiovascular: Reports: No Symptoms Gastrointestinal: Reports: No Symptoms Genitourinary: Reports: No Symptoms Musculoskeletal: Reports: No Symptoms Skin: Reports: Rash (rash on his groin) Psychiatric: Reports: Mood Lability - Patient Data Vitals - Most Recent: Last Vital Signs Temp 97.1 F 09/02/20 03:20 Pulse 71 09/02/20 03:20 Resp 18 09/02/20 03:20 BP 136/55 L 09/02/20 03:20 Pulse Ox 95 09/02/20 03:20 Weight - Most Recent: 261 lb 11.195 oz I&O - Last 24 Hours: Intake & Output 09/01/20 09/02/20 09/02/20 22:59 06:59 14:59 Intake Total 1454 1618 Output Total 85 600 Balance 60D 1018 Samm Results Last 24 Hours: Microbiology 08/31/20 15:05 Urine Culture - Final Urine, Bladder Escherichia Coli 08/31/20 13:40 Aerobic Blood Culture - Preliminary Blood - Arm, Left NO GROWTH AFTER 1 DAY Anaerobic Blood Culture - Preliminary NO GROWTH AFTER 1 DAY 08/31/20 13:15 Aerobic Blood Culture - Preliminary Blood - Arm, Left NO GROWTH AFTER 1 DAY Anaerobic Blood Culture - Preliminary NO GROWTH AFTER 1 DAY Med Orders - Current: Current Medications Acetaminophen (Acetaminophen 325 Mg Tab) 650 mg PO Q6H PRN PRN Reason: Pain Apixaban (Apixaban 2.5 Mg Tab) 2.5 mg PO BID [facility] Last Admin: 09/02/20 08:09 Dose: 2.5 mg Documented by: Bisacodyl (Bisacodyl 10 Mg Supp) 10 mg RECTAL ASDIRECTED PRN PRN Reason: Constipation Cholecalciferol (Cholecalciferol (Vitamin D3) 25 Mcg Tab) 25 mcg PO DAILY [facility] Last Admin: 09/02/20 08:09 Dose: 25 mcg Documented by: Dextrose/Water (50% Dextrose In Water 50 Ml Syringe) 50 ml IVPUSH ASDIRECTED PRN PRN Reason: Hypoglycemia Dimethicone/Zinc Oxide (Dimethicone 20%/Zinc Oxide 25% 56 Gm [place] Bottle) 0 gm TOP ASDIRECTED PRN PRN Reason: Rash Last Admin: 09/01/20 10:53 Dose: 1 appful Documented by: Docusate Sodium (Docusate Sodium 100 Mg Cap) 100 mg PO BEDTIME [facility] Last Admin: 09/01/20 20:01 Dose: Not Given Documented by: Furosemide (Furosemide 20 Mg Tab) 20 mg PO DAILY [facility] Last Admin: 09/02/20 08:09 Dose: 20 mg Documented by: Glucagon (Glucagon,Human Recombinant 1 Mg Vial) 1 mg IM ASDIRECTED PRN PRN Reason: Hypoglycemia Guaifenesin/Dextromethorphan (Guaifenesin/Dextromethorphan 100-10 Mg/5 Ml Soln 10 Ml Cup) 10 ml PO Q4H PRN PRN Reason: Cough Last Admin: 09/01/20 15:07 Dose: 10 ml Documented by: Lactated Ringer's (Ringers, Lactated) 1,000 mls @ 125 mls/hr IV ASDIRECTED [facility] Stop: 09/02/20 17:16 Last Admin: 09/02/20 04:31 Dose: 125 mls/hr Documented by: Piperacillin/Tazobactam/ (Dextrose 4.5 gm/ Premix) 100 mls @ 200 mls/hr IV Q6H [facility] Last Admin: 09/02/20 03:34 Dose: 200 mls/hr Documented by: Insulin Glargine (Insulin Glargine,Human Rec. Analog 100 Units/Ml 3 Ml Pen) 36 units SUBCUT BEDTIME [facility] Last Admin: 09/01/20 20:01 Dose: 36 units Documented by: Insulin Human Lispro (Insulin Lispro 100 Unit/Ml 3 Ml Kwikpen) 0 unit SUBCUT Q IDACANDBED [facility]; Protocol Last Admin: 09/02/20 08:05 Dose: 1 units Documented by: Discontinued Medications Acetaminophen (Acetaminophen 325 Mg Tab) 650 mg PO Q6H PRN PRN Reason: Pain Lactated Ringer's (Ringers, Lactated) 1,000 mls @ 999 mls/hr IV ASDIRECTED [facility] Last Admin: 08/31/20 13:05 Dose: 999 mls/hr Documented by: Lactated Ringer's (Ringers, Lactated) 1,000 mls @ 999 mls/hr IV ASDIRECTED [facility] Last Admin: 08/31/20 14:02 Dose: 999 mls/hr Documented by: Piperacillin/Tazobactam/ (Dextrose 4.5 gm/ Premix) 100 mls @ 100 mls/hr IV ONETIME ONE Stop: 08/31/20 15:14 Last Admin: 08/31/20 14:47 Dose: 100 mls/hr Documented by: Lactated Ringer's (Ringers, Lactated) 1,000 mls @ 500 mls/hr IV ASDIRECTED [facility] Last Admin: 08/31/20 16:35 Dose: 500 mls/hr Documented by: Piperacillin/Tazobactam/ (Dextrose 4.5 gm/ Premix) 100 mls @ 200 mls/hr IV Q6H [facility] Piperacillin Sod/Tazobactam (Sod 2.25 gm/ Sodium Chloride) 50 mls @ 100 mls/hr IV Q6H [facility] Last Admin: 09/01/20 04:16 Dose: 100 mls/hr Documented by: Sodium Chloride (Normal Saline) Confirm Administered Dose 50 mls @ as directed .ROUTE .STK-MED ONE Stop: 08/31/20 21:56 Last Admin: 08/31/20 22:14 Dose: Not Given Documented by: Insulin Human Lispro (Insulin Lispro 100 Unit/Ml 3 Ml Kwikpen) 0 - 14 unit SUBCUT TIDMEALS [facility] Last Admin: 09/01/20 19:14 Dose: Not Given Documented by: Potassium Chloride (Potassium Chloride 20 Meq Tab.Er) 20 meq PO ONETIME ONE Stop: 09/01/20 17:01 Last Admin: 09/01/20 17:12 Dose: 20 meq Documented by: - Exam Urinary Catheter Total Time: 1Days 7Hours General: Lethargic HEENT: Pupils Equal, Pupils Reactive, EOMI, Mucous Membr. Moist/[place] Neck: Supple Lungs: Clear to Auscultation, Normal Respiratory Effort Cardiovascular: Regular Rate, Regular Rhythm GI/Abdominal Exam: Soft Extremities: Pedal Edema Peripheral Pulses: 1+: Radial (L), Radial (R) Skin: Warm (K please thank you), Dry, Intact - Patient Data Result Diagrams: 09/01/20 06:05 09/01/20 06:05 Samm Results Last 24 hrs: Microbiology 08/31/20 15:05 Urine Culture - Final Urine, Bladder Escherichia Coli 08/31/20 13:40 Aerobic Blood Culture - Preliminary Blood - Arm, Left NO GROWTH AFTER 1 DAY Anaerobic Blood Culture - Preliminary NO GROWTH AFTER 1 DAY 08/31/20 13:15 Aerobic Blood Culture - Preliminary Blood - Arm, Left NO GROWTH AFTER 1 DAY Anaerobic Blood Culture - Preliminary NO GROWTH AFTER 1 DAY Sepsis Event Note - Evaluation Sepsis Screening Result: No Definite Risk - Focused Exam Vital Signs: Vital Signs Temp Pulse Resp BP Pulse Ox 09/02/20 03:20 97.1 F 71 18 136/55 L 95 09/02/20 00:18 97.6 F 87 18 123/50 L 94 L - Problem List Review Problem List Initiated/Reviewed/Updated: Yes - My Orders Last 24 Hours: My Active Orders 09/01/20 09:00 Cholecalciferol (Vitamin D3) [Vitamin D3] 25 mcg PO DAILY Furosem[facility] [Lasix] 20 mg PO DAILY 09/01/20 10:00 Piperacillin/Tazobactam/Dext [Zosyn in Dextrose Iso-Osmotic 4.5 GM/100 ML] 4.5 gm Premix Bag 1 bag IV Q6H 09/01/20 10:18 Dimethicone/Zinc Oxide [Rash Relief-Zinc Oxide [place]] 0 gm TOP ASDIRECTED PRN 09/01/20 14:14 Code Status [Resuscitation Status] Routine 09/01/20 14:56 Dextromethorphan/guaiFENesin [Robitussin DM] 10 ml PO Q4H PRN 09/01/20 20:00 Insulin Lispro [HumaLOG] See Protocol SUBCUT QIDACANDBED 09/02/20 01:25 CLOS DIFFICILE PCR W/REFLEX [RM] Routine - Plan Plan:: Assessment/Plan: #1. Sepsis. He has been started on Zosyn and cultures are pending. WBC is 9.6 today. #2. DM II: Will monitor BS and adjust as needed. #3. HTN: BP 123/50 today. #4. Dehydration: Will rehydrate slowly #5. Amnesia: Chronic #6. hx. of TIA #7. HLD: Stable #8. Atrial Fib. with pacemaker in place. #9. Obesity: Chronic Cultures so far are negative. I do expect a UTI.
[2020-09-02] MEDS ORDERED: Loperamide 2 MG Cap PO PRN (10:53)
[2020-09-02] MEDS ORDERED: Loperamide 2 MG Cap PO ONE (12:00)
[2020-09-02] MEDS: Lactobacillus Rhamnosus GG (Probiotic) Cap PO SCH ×2 (14:24→20:43)
[2020-09-02] MEDS ORDERED: cefTRIAXone 1 GM in Sodium Chloride 0.9% 50 ML IV ONE (16:00)
--- NOTE | 2020-09-02 18:33 | PCM.PN ---
- General Info Date of Service: 09/02/20 Subjective Update: He has no complaints but he has a significant amount of diarrhea. - Review of Systems General: Reports: Weakness HEENT: Reports: No Symptoms Pulmonary: Reports: No Symptoms Cardiovascular: Reports: No Symptoms Gastrointestinal: Reports: Diarrhea Genitourinary: Reports: No Symptoms Musculoskeletal: Reports: No Symptoms Skin: Reports: No Symptoms Neurological: Reports: Trouble Speaking, Difficulty Walking, Weakness Psychiatric: Reports: Mood Lability - Patient Data Vitals - Most Recent: Last Vital Signs Temp 99 F 09/02/20 15:31 Pulse 81 09/02/20 15:31 Resp 20 09/02/20 15:31 BP 131/54 L 09/02/20 15:31 Pulse Ox 95 09/02/20 15:31 Weight - Most Recent: 261 lb 11.195 oz I&O - Last 24 Hours: Intake & Output 09/02/20 09/02/20 09/02/20 06:59 14:59 22:59 Intake Total 1618 1240 Output Total 600 50 Balance 1018 756 @ Samm Results Last 24 Hours: Microbiology 08/31/20 13:40 Aerobic Blood Culture - Preliminary Blood - Arm, Left NO GROWTH AFTER 2 DAYS Anaerobic Blood Culture - Preliminary NO GROWTH AFTER 2 DAYS 08/31/20 13:15 Aerobic Blood Culture - Preliminary Blood - Arm, Left NO GROWTH AFTER 2 DAYS Anaerobic Blood Culture - Preliminary NO GROWTH AFTER 2 DAYS 09/02/20 11:02 Clostridioides difficile (PCR) - Final Stool / Feces 08/31/20 15:05 Urine Culture - Final Urine, Bladder Escherichia Coli Med Orders - Current: Current Medications Acetaminophen (Acetaminophen 325 Mg Tab) 650 mg PO Q6H PRN PRN Reason: Pain Apixaban (Apixaban 2.5 Mg Tab) 2.5 mg PO BID [facility] Last Admin: 09/02/20 08:09 Dose: 2.5 mg Documented by: Bisacodyl (Bisacodyl 10 Mg Supp) 10 mg RECTAL ASDIRECTED PRN PRN Reason: Constipation Cholecalciferol (Cholecalciferol (Vitamin D3) 25 Mcg Tab) 25 mcg PO DAILY [facility] Last Admin: 09/02/20 08:09 Dose: 25 mcg Documented by: Dextrose/Water (50% Dextrose In Water 50 Ml Syringe) 50 ml IVPUSH ASDIRECTED PRN PRN Reason: Hypoglycemia Dimethicone/Zinc Oxide (Dimethicone 20%/Zinc Oxide 25% 56 Gm [place] Bottle) 0 gm TOP ASDIRECTED PRN PRN Reason: Rash Last Admin: 09/01/20 10:53 Dose: 1 appful Documented by: Docusate Sodium (Docusate Sodium 100 Mg Cap) 100 mg PO BEDTIME [place] Last Admin: 09/01/20 20:01 Dose: Not Given Documented by: Furosemide (Furosemide 20 Mg Tab) 20 mg PO DAILY [facility] Last Admin: 09/02/20 08:09 Dose: 20 mg Documented by: Glucagon (Glucagon,Human Recombinant 1 Mg Vial) 1 mg IM ASDIRECTED PRN PRN Reason: Hypoglycemia Guaifenesin/Dextromethorphan (Guaifenesin/Dextromethorphan 100-10 Mg/5 Ml Soln 10 Ml Cup) 10 ml PO Q4H PRN PRN Reason: Cough Last Admin: 09/01/20 15:07 Dose: 10 ml Documented by: Insulin Glargine (Insulin Glargine,Human Rec. Analog 100 Units/Ml 3 Ml Pen) 36 units SUBCUT BEDTIME [facility] Last Admin: 09/01/20 20:01 Dose: 36 units Documented by: Insulin Human Lispro (Insulin Lispro 100 Unit/Ml 3 Ml Kwikpen) 0 unit SUBCUT QIDACANDBED [facility]; Protocol Last Admin: 09/02/20 11:28 Dose: 2 units Documented by: Lactobacillus Rhamnosus (Lactobacillus Rhamnosus Gg (Probiotic) Cap) 1 cap PO BID [facility] Last Admin: 09/02/20 14:24 Dose: 1 cap Documented by: Loperamide HCl (Loperamide 2 Mg Cap) 2 mg PO ASDIRECTED PRN PRN Reason: Diarrhea Last Admin: 09/02/20 18:22 Dose: 2 mg Documented by: Discontinued Medications Acetaminophen (Acetaminophen 325 Mg Tab) 650 mg PO Q6H PRN PRN Reason: Pain Lactated Ringer's (Ringers, Lactated) 1,000 mls @ 999 mls/hr IV ASDIRECTED [facility] Last Admin: 08/31/20 13:05 Dose: 999 mls/hr Documented by: Lactated Ringer's (Ringers, Lactated) 1,000 mls @ 999 mls/hr IV ASDIRECTED [facility] Last Admin: 08/31/20 14:02 Dose: 999 mls/hr Documented by: Piperacillin/Tazobactam/ (Dextrose 4.5 gm/ Premix) 100 mls @ 100 mls/hr IV ONETIME ONE Stop: 08/31/20 15:14 Last Admin: 08/31/20 14:47 Dose: 100 mls/hr Documented by: Lactated Ringer's (Ringers, Lactated) 1,000 mls @ 500 mls/hr IV ASDIRECTED [facility] Last Admin: 08/31/20 16:35 Dose: 500 mls/hr Documented by: Piperacillin/Tazobactam/ (Dextrose 4.5 gm/ Premix) 100 mls @ 200 mls/hr IV Q6H [facility] Lactated Ringer's (Ringers, Lactated) 1,000 mls @ 125 mls/hr IV ASDIRECTED [facility] Stop: 09/02/20 17:16 Last Admin: 09/02/20 13:03 Dose: 125 mls/hr Documented by: Piperacillin Sod/Tazobactam (Sod 2.25 gm/ Sodium Chloride) 50 mls @ 100 mls/hr IV Q6H [facility] Last Admin: 09/01/20 04:16 Dose: 100 mls/hr Documented by: Sodium Chloride (Normal Saline) Confirm Administered Dose 50 mls @ as directed .ROUTE .STK-MED ONE Stop: 08/31/20 21:56 Last Admin: 08/31/20 22:14 Dose: Not Given Documented by: Piperacillin/Tazobactam/ (Dextrose 4.5 gm/ Premix) 100 mls @ 200 mls/hr IV Q6H [facility] Last Admin: 09/02/20 10:30 Dose: 200 mls/hr Documented by: Ceftriaxone Sodium 1 gm/ (Sodium Chloride) 50 mls @ 100 mls/hr IV Q24H ONE Stop: 09/02/20 16:29 Last Admin: 09/02/20 15:36 Dose: 100 mls/hr Documented by: Insulin Human Lispro (Insulin Lispro 100 Unit/Ml 3 Ml Kwikpen) 0 - 14 unit SUBCUT TIDMEALS [facility] Last Admin: 09/01/20 19:14 Dose: Not Given Documented by: Loperamide HCl (Loperamide 2 Mg Cap) 4 mg PO ONETIME ONE Stop: 09/02/20 12:01 Last Admin: 09/02/20 11:27 Dose: 4 mg Documented by: Potassium Chloride (Potassium Chloride 20 Meq Tab.Er) 20 meq PO ONETIME ONE Stop: 09/01/20 17:01 Last Admin: 09/01/20 17:12 Dose: 20 meq Documented by: - Exam Urinary Catheter Total Time: 2Days 1Hours General: Oriented, Cooperative, Moderate Distress HEENT: Pupils Equal Neck: Supple Lungs: Clear to Auscultation Cardiovascular: Irregular Rhythm GI/Abdominal Exam: Normal Bowel Sounds, Soft Extremities: Pedal Edema Peripheral Pulses: 1+: Radial (L), Radial (R) Skin: Rash Psy/Mental Status: Labile Mood - Patient Data Result Diagrams: 09/01/20 06:05 09/01/20 06:05 Samm Results Last 24 hrs: Microbiology 08/31/20 13:40 Aerobic Blood Culture - Preliminary Blood - Arm, Left NO GROWTH AFTER 2 DAYS Anaerobic Blood Culture - Preliminary NO GROWTH AFTER 2 DAYS 08/31/20 13:15 Aerobic Blood Culture - Preliminary Blood - Arm, Left NO GROWTH AFTER 2 DAYS Anaerobic Blood Culture - Preliminary NO GROWTH AFTER 2 DAYS 09/02/20 11:02 Clostridioides difficile (PCR) - Final Stool / Feces 08/31/20 15:05 Urine Culture - Final Urine, Bladder Escherichia Coli Sepsis Event Note - Evaluation Sepsis Screening Result: No Definite Risk - Focused Exam Vital Signs: Vital Signs Temp Pulse Resp BP Pulse Ox 09/02/20 15:31 99 F 81 20 131/54 L 95 09/02/20 11:00 97.6 F 87 140/69 94 L 09/02/20 10:00 97.5 F 89 153/57 H 93 L 09/02/20 08:20 98.0 F - Problem List Review Problem List Initiated/Reviewed/Updated: Yes - My Orders Last 24 Hours: My Active Orders 09/01/20 20:00 Insulin Lispro [HumaLOG] See Protocol SUBCUT QIDACANDBED 09/02/20 10:53 Loperamide [Imodium] 2 mg PO ASDIRECTED PRN 09/02/20 11:00 Lactobacillus Rhamnosus GG [Culturelle] 1 cap PO BID - Plan Plan:: Assessment/Plan: #1. Sepsis. He was initially treated with Zosyn but change him over to Rocephin as he's been having diarrhea and that cultures did come back from the urine Escherichia coli. Temp 99. Final identification for the antibiotic choice is still pending. His cough has resolved from yesterday. #2. DM II: Will monitor BS and adjust as needed. #3. HTN: BP 131/54 pulse 81 today. #4. Diarrhea: I given him Lomotil and changing the antibiotic should hopefully resolve the diarrhea. #5. Amnesia: Chronic #6. hx. of TIA #7. HLD: Stable #8. Atrial Fib. with pacemaker in place. #9. Obesity: Chronic Cultures so far are negative. I do expect a UTI.
[2020-09-02] MEDS: Docusate Sodium 100 MG Cap PO SCH (20:43)
[2020-09-02] MEDS: Insulin Glargine,Human Rec. Analog 100 Units/ML 3 ML Pen SUBCUT SCH (20:44)
[2020-09-03] MEDS: Insulin Lispro 100 Unit/ML 3 ML KwikPen SUBCUT SCH ×4 (07:31→21:48)
[2020-09-03] MEDS: Furosemide 20 MG Tab PO SCH (08:27)
[2020-09-03] MEDS: Apixaban 2.5 MG Tab PO SCH ×2 (08:27→21:49)
[2020-09-03] MEDS: Lactobacillus Rhamnosus GG (Probiotic) Cap PO SCH ×2 (08:27→21:49)
[2020-09-03] MEDS: Cholecalciferol (Vitamin D3) 25 MCG Tab PO SCH (08:27)
[2020-09-03] MEDS ORDERED: cefTRIAXone 1 GM in Sodium Chloride 0.9% 50 ML IV ONE (09:00)
--- NOTE | 2020-09-03 15:43 | PCM.PN ---
- General Info Date of Service: 09/03/20 Subjective Update: There has been a deterioration from yesterday with increased lethargy. He wakes up for a short period of time. - Review of Systems General: Reports: Weakness, Fatigue HEENT: Reports: No Symptoms Pulmonary: Reports: No Symptoms Cardiovascular: Reports: No Symptoms Gastrointestinal: Reports: No Symptoms Neurological: Reports: Trouble Speaking, Weakness, Other ([place] lethergy) - Patient Data Vitals - Most Recent: Last Vital Signs Temp 97.1 F 09/03/20 14:39 Pulse 76 09/03/20 14:39 Resp 16 09/03/20 14:39 BP 149/64 H 09/03/20 14:39 Pulse Ox 93 L 09/03/20 14:39 Weight - Most Recent: 261 lb 11.195 oz I&O - Last 24 Hours: Intake & Output 09/03/20 09/03/20 09/03/20 06:59 14:59 22:59 Intake Total 350 Output Total 32 65 Balance -31* -28$ Samm Results Last 24 Hours: Microbiology 08/31/20 13:40 Aerobic Blood Culture - Preliminary Blood - Arm, Left NO GROWTH AFTER 3 DAYS Anaerobic Blood Culture - Preliminary NO GROWTH AFTER 3 DAYS 08/31/20 13:15 Aerobic Blood Culture - Preliminary Blood - Arm, Left NO GROWTH AFTER 3 DAYS Anaerobic Blood Culture - Preliminary NO GROWTH AFTER 3 DAYS 09/02/20 11:02 Clostridioides difficile (PCR) - Final Stool / Feces Med Orders - Current: Current Medications Acetaminophen (Acetaminophen 325 Mg Tab) 650 mg PO Q6H PRN PRN Reason: Pain Apixaban (Apixaban 2.5 Mg Tab) 2.5 mg PO BID [facility] Last Admin: 09/03/20 08:27 Dose: 2.5 mg Documented by: Bisacodyl (Bisacodyl 10 Mg Supp) 10 mg RECTAL ASDIRECTED PRN PRN Reason: Constipation Cholecalciferol (Cholecalciferol (Vitamin D3) 25 Mcg Tab) 25 mcg PO DAILY [facility] Last Admin: 09/03/20 08:27 Dose: 25 mcg Documented by: Dextrose/Water (50% Dextrose In Water 50 Ml Syringe) 50 ml IVPUSH ASDIRECTED PRN PRN Reason: Hypoglycemia Dimethicone/Zinc Oxide (Dimethicone 20%/Zinc Oxide 25% 56 Gm [place] Bottle) 0 gm TOP ASDIRECTED PRN PRN Reason: Rash Last Admin: 09/01/20 10:53 Dose: 1 appful Documented by: Docusate Sodium (Docusate Sodium 100 Mg Cap) 100 mg PO BEDTIME [facility] Last Admin: 09/02/20 20:43 Dose: Not Given Documented by: Furosemide (Furosemide 20 Mg Tab) 20 mg PO DAILY [facility] Last Admin: 09/03/20 08:27 Dose: 20 mg Documented by: Glucagon (Glucagon,Human Recombinant 1 Mg Vial) 1 mg IM ASDIRECTED PRN PRN Reason: Hypoglycemia Guaifenesin/Dextromethorphan (Guaifenesin/Dextromethorphan 100-10 Mg/5 Ml Soln 10 Ml Cup) 10 ml PO Q4H PRN PRN Reason: Cough Last Admin: 09/01/20 15:07 Dose: 10 ml Documented by: Insulin Glargine (Insulin Glargine,Human Rec. Analog 100 Units/Ml 3 Ml Pen) 36 units SUBCUT BEDTIME [facility] Last Admin: 09/02/20 20:44 Dose: 36 units Documented by: Insulin Human Lispro (Insulin Lispro 100 Unit/Ml 3 Ml Kwikpen) 0 unit SUBCUT QIDACANDBED [facility]; Protocol Last Admin: 09/03/20 11:58 Dose: 1 units Documented by: Lactobacillus Rhamnosus (Lactobacillus Rhamnosus Gg (Probiotic) Cap) 1 cap PO BID [facility] Last Admin: 09/03/20 08:27 Dose: 1 cap Documented by: Loperamide HCl (Loperamide 2 Mg Cap) 2 mg PO ASDIRECTED PRN PRN Reason: Diarrhea Last Admin: 09/02/20 18:22 Dose: 2 mg Documented by: Discontinued Medications Acetaminophen (Acetaminophen 325 Mg Tab) 650 mg PO Q6H PRN PRN Reason: Pain Lactated Ringer's (Ringers, Lactated) 1,000 mls @ 999 mls/hr IV ASDIRECTED [facility] Last Admin: 08/31/20 13:05 Dose: 999 mls/hr Documented by: Lactated Ringer's (Ringers, Lactated) 1,000 mls @ 999 mls/hr IV ASDIRECTED [facility] Last Admin: 08/31/20 14:02 Dose: 999 mls/hr Documented by: Piperacillin/Tazobactam/ (Dextrose 4.5 gm/ Premix) 100 mls @ 100 mls/hr IV ONETIME ONE Stop: 08/31/20 15:14 Last Admin: 08/31/20 14:47 Dose: 100 mls/hr Documented by: Lactated Ringer's (Ringers, Lactated) 1,000 mls @ 500 mls/hr IV ASDIRECTED [facility] Last Admin: 08/31/20 16:35 Dose: 500 mls/hr Documented by: Piperacillin/Tazobactam/ (Dextrose 4.5 gm/ Premix) 100 mls @ 200 mls/hr IV Q6H [facility] Lactated Ringer's (Ringers, Lactated) 1,000 mls @ 125 mls/hr IV ASDIRECTED [facility] Stop: 09/02/20 17:16 Last Admin: 09/02/20 13:03 Dose: 125 mls/hr Documented by: Piperacillin Sod/Tazobactam (Sod 2.25 gm/ Sodium Chloride) 50 mls @ 100 mls/hr IV Q6H [facility] Last Admin: 09/01/20 04:16 Dose: 100 mls/hr Documented by: Sodium Chloride (Normal Saline) Confirm Administered Dose 50 mls @ as directed .ROUTE .STK-MED ONE Stop: 08/31/20 21:56 Last Admin: 08/31/20 22:14 Dose: Not Given Documented by: Piperacillin/Tazobactam/ (Dextrose 4.5 gm/ Premix) 100 mls @ 200 mls/hr IV Q6H [facility] Last Admin: 09/02/20 10:30 Dose: 200 mls/hr Documented by: Ceftriaxone Sodium 1 gm/ (Sodium Chloride) 50 mls @ 100 mls/hr IV Q24H ONE Stop: 09/02/20 16:29 Last Admin: 09/02/20 15:36 Dose: 100 mls/hr Documented by: Ceftriaxone Sodium 1 gm/ (Sodium Chloride) 50 mls @ 100 mls/hr IV ONETIME ONE Stop: 09/03/20 09:29 Last Admin: 09/03/20 10:10 Dose: 100 mls/hr Documented by: Insulin Human Lispro (Insulin Lispro 100 Unit/Ml 3 Ml Kwikpen) 0 - 14 unit SUBCUT TIDMEALS [facility] Last Admin: 09/01/20 19:14 Dose: Not Given Documented by: Loperamide HCl (Loperamide 2 Mg Cap) 4 mg PO ONETIME ONE Stop: 09/02/20 12:01 Last Admin: 09/02/20 11:27 Dose: 4 mg Documented by: Potassium Chloride (Potassium Chloride 20 Meq Tab.Er) 20 meq PO ONETIME ONE Stop: 09/01/20 17:01 Last Admin: 09/01/20 17:12 Dose: 20 meq Documented by: - Exam Urinary Catheter Total Time: 3Days 0Hours General: Moderate Distress, Sedated, Lethargic, Obtunded HEENT: Pupils Equal, Pupils Reactive, EOMI, Mucous Membr. Moist/[place] Neck: Supple Lungs: Clear to Auscultation, Normal Respiratory Effort Cardiovascular: Regular Rate, Regular Rhythm GI/Abdominal Exam: Normal Bowel Sounds, Soft, Non-Tender, No Organomegaly, No Distention, No Abnormal Bruit, No Mass, Pelvis Stable Extremities: Pedal Edema Peripheral Pulses: 1+: Radial (L), Radial (R) Skin: Warm, Dry Psy/Mental Status: Other (lethargic) - Patient Data Result Diagrams: 09/01/20 06:05 09/01/20 06:05 Samm Results Last 24 hrs: Microbiology 08/31/20 13:40 Aerobic Blood Culture - Preliminary Blood - Arm, Left NO GROWTH AFTER 3 DAYS Anaerobic Blood Culture - Preliminary NO GROWTH AFTER 3 DAYS 08/31/20 13:15 Aerobic Blood Culture - Preliminary Blood - Arm, Left NO GROWTH AFTER 3 DAYS Anaerobic Blood Culture - Preliminary NO GROWTH AFTER 3 DAYS 09/02/20 11:02 Clostridioides difficile (PCR) - Final Stool / Feces Sepsis Event Note - Evaluation Sepsis Screening Result: No Definite Risk - Focused Exam Vital Signs: Vital Signs Temp Temp Pulse Resp BP Pulse Ox 09/03/20 14:39 97.1 F 76 16 149/64 H 93 L 09/03/20 11:18 99.4 F 67 16 139/51 L 95 09/03/20 07:32 93 L 09/03/20 07:19 97.1 F 81 32 H 151/69 H 89 L - Problem List Review Problem List Initiated/Reviewed/Updated: Yes - My Orders Last 24 Hours: My Active Orders 09/03/20 15:24 Head wo Cont [CT] Routine - Plan Plan:: Assessment/Plan: #1. Sepsis. He was initially treated with Zosyn but change him over to Rocephin as he's been having diarrhea and that cultures did come back from the urine Escherichia coli. Temp 99. Final identification for the antibiotic choice is still pending. His cough has resolved from yesterday. #2. DM II: Will monitor BS and adjust as needed. #3. HTN: BP 131/54 pulse 81 today. #4. Diarrhea: I given him Lomotil and changing the antibiotic should hopefully resolve the diarrhea. #5. Amnesia: Chronic #6. hx. of TIA #7. HLD: Stable #8. Atrial Fib. with pacemaker in place. #9. Obesity: Chronic Cultures so far are negative. I do expect a UTI.
--- NOTE | 2020-09-03 17:07 | CRLCT ---
For Patients: As a result of the Cures Act, medical imaging exams and procedure reports are released immediately into your electronic medical record. You may view this report before your referring provider. If you have questions, please contact your health care provider. INDICATION: Altered mental status. Lethargy. TECHNIQUE: CT of the head without contrast. Coronal and sagittal reformats are included. COMPARISON: Head CT from 06/09/2019. FINDINGS: No CT evidence of acute cortical infarct. Chronic cortical infarct left parietal lobe. Patchy white matter hypoattenuation, typical for chronic microvascular ischemic changes. No hyperdense vessels to suggest intracranial thrombus. No acute intracranial hemorrhage. No mass effect or midline shift. No hydrocephalus or extra-axial collections. No acute osseous abnormalities. Mucosal thickening involving the ethmoid air cells and sphenoid sinuses. Left mastoid tip effusion. Normal soft tissues. IMPRESSION: IMPRESSION:1. No CT evidence of acute cortical infarct. No acute intracranial hemorrhage. No other acute intracranial findings. Please note that all CT scans at this facility use dose modulation, iterative reconstruction, and/or weight-based dosing when appropriate to reduce radiation dose to as low as reasonably achievable. Dictated by Balbir Braun MD @ 09/03/2020 5:05:[address] Balbir Braun @ Sep 03 2020 5:05PM
[2020-09-03] MEDS: Docusate Sodium 100 MG Cap PO SCH (21:49)
[2020-09-03] MEDS: Insulin Glargine,Human Rec. Analog 100 Units/ML 3 ML Pen SUBCUT SCH (21:50)
[2020-09-04] MEDS: Insulin Lispro 100 Unit/ML 3 ML KwikPen SUBCUT SCH ×2 (09:07→12:29)
[2020-09-04] MEDS ORDERED: Potassium Chloride 20 MEQ Tab.ER PO STA (09:15)
[2020-09-04] MEDS: Furosemide 20 MG Tab PO SCH (09:37)
[2020-09-04] MEDS: Cholecalciferol (Vitamin D3) 25 MCG Tab PO SCH (09:37)
[2020-09-04] MEDS: Apixaban 2.5 MG Tab PO SCH (09:37)
[2020-09-04] MEDS: Lactobacillus Rhamnosus GG (Probiotic) Cap PO SCH (09:37)
[2020-09-04 10:29] VITALS: BP 137/62; PULSE 55
[2020-09-04] MEDS ORDERED: Potassium Chloride 20 MEQ Tab.ER PO ONE (13:45)
--- NOTE | 2020-09-04 22:33 | PCM.PN ---
- General Info Date of Service: 09/04/20 Admission Dx/Problem (Free Text): He is more alert this morning than he was yesterday and similar to what he has been in home. Functional Status: Reports: Pain Controlled - Review of Systems General: Reports: Weakness HEENT: Reports: No Symptoms Pulmonary: Reports: No Symptoms Cardiovascular: Reports: No Symptoms Gastrointestinal: Reports: Diarrhea Genitourinary: Reports: No Symptoms (generalized weakness of his muscles) Musculoskeletal: Reports: Other (generalized weakness of his muscles unable to ambulate) Skin: Reports: Rash Neurological: Reports: Trouble Speaking, Difficulty Walking, Weakness Psychiatric: Reports: Depression - Patient Data Vitals - Most Recent: Last Vital Signs Temp 96.4 F L 09/04/20 10:28 Pulse 55 L 09/04/20 10:28 Resp 16 09/04/20 10:28 BP 137/62 09/04/20 10:28 Pulse Ox 93 L 09/04/20 10:28 Weight - Most Recent: 261 lb 11.195 oz I&O - Last 24 Hours: Intake & Output 09/04/20 09/04/20 09/04/20 06:59 14:59 22:59 Intake Total 1350 Balance 1350 Lab Results Last 24 Hours: Laboratory Results - last 24 hr 09/04/20 09/04/20 09/04/20 Range/Units 08:13 08:13 12:30 WBC 9.8 (4.5-11.0) K/uL RBC 4.95 (4.30-5.90) M/uL Hgb 13.9 (12.0-15.0) g/dL Hct 41.7 (40.0-54.0) % MCV 84 (80-98) fL MCH 28 (27-31) pg MCHC 33 (32-36) % Plt Count 245 (150-400) K/uL Neut % (Auto) 76.7 H (36-66) % Lymph % (Auto) 11.6 L (24-44) % [place] % (Auto) 9.7 H (2-6) % Eos % (Auto) 1.8 L (2-4) % Baso % (Auto) 0.2 (0-1) % Sodium 140 (140-148) mmol/L Potassium 2.6 L* 3.0 L (3.6-5.2) mmol/L Chloride 101 (100-108) mmol/L Carbon Dioxide 30 (21-32) mmol/L Anion Gap 11.6 (5.0-14.0) mmol/L BUN 9 (7-18) mg/dL Creatinine 1.1 (0.8-1.3) mg/dL Est Cr Clr Drug Dosing 53.38 mL/min Estimated GFR (MDRD) > 60 (>60) Glucose 141 H (74-106) mg/dL Calcium 8.4 L (8.5-10.1) mg/dL Total Bilirubin 0.4 (0.2-1.0) mg/dL AST 11 L (15-37) U/L ALT 7 L (12-78) U/L Alkaline Phosphatase 52 (46-116) U/L Total Protein 6.2 L (6.4-8.2) g/dL Albumin 2.1 L (3.4-5.0) g/dL Globulin 4.1 H (2.3-3.5) g/dL Albumin/Globulin Ratio 0.5 L (1.2-2.2) Samm Results Last 24 Hours: Microbiology 08/31/20 13:40 Aerobic Blood Culture - Preliminary Blood - Arm, Left NO GROWTH AFTER 4 DAYS Anaerobic Blood Culture - Preliminary NO GROWTH AFTER 4 DAYS 08/31/20 13:15 Aerobic Blood Culture - Preliminary Blood - Arm, Left NO GROWTH AFTER 4 DAYS Anaerobic Blood Culture - Preliminary NO GROWTH AFTER 4 DAYS Med Orders - Current: Current Medications Discontinued Medications Acetaminophen (Acetaminophen 325 Mg Tab) 650 mg PO Q6H PRN PRN Reason: Pain Acetaminophen (Acetaminophen 325 Mg Tab) 650 mg PO Q6H PRN PRN Reason: Pain Apixaban (Apixaban 2.5 Mg Tab) 2.5 mg PO BID [facility] Last Admin: 09/04/20 09:37 Dose: 2.5 mg Documented by: Bisacodyl (Bisacodyl 10 Mg Supp) 10 mg RECTAL ASDIRECTED PRN PRN Reason: Constipation Cholecalciferol (Cholecalciferol (Vitamin D3) 25 Mcg Tab) 25 mcg PO DAILY [facility] Last Admin: 09/04/20 09:37 Dose: 25 mcg Documented by: Dextrose/Water (50% Dextrose In Water 50 Ml Syringe) 50 ml IVPUSH ASDIRECTED PRN PRN Reason: Hypoglycemia Dimethicone/Zinc Oxide (Dimethicone 20%/Zinc Oxide 25% 56 Gm [place] Bottle) 0 gm TOP ASDIRECTED PRN PRN Reason: Rash Last Admin: 09/01/20 10:53 Dose: 1 appful Documented by: Docusate Sodium (Docusate Sodium 100 Mg Cap) 100 mg PO BEDTIME [facility] Last Admin: 09/03/20 21:49 Dose: Not Given Documented by: Furosemide (Furosemide 20 Mg Tab) 20 mg PO DAILY [facility] Last Admin: 09/04/20 09:37 Dose: 20 mg Documented by: Glucagon (Glucagon,Human Recombinant 1 Mg Vial) 1 mg IM ASDIRECTED PRN PRN Reason: Hypoglycemia Guaifenesin/Dextromethorphan (Guaifenesin/Dextromethorphan 100-10 Mg/5 Ml Soln 10 Ml Cup) 10 ml PO Q4H PRN PRN Reason: Cough Last Admin: 09/01/20 15:07 Dose: 10 ml Documented by: Lactated Ringer's (Ringers, Lactated) 1,000 mls @ 999 mls/hr IV ASDIRECTED [facility] Last Admin: 08/31/20 13:05 Dose: 999 mls/hr Documented by: Lactated Ringer's (Ringers, Lactated) 1,000 mls @ 999 mls/hr IV ASDIRECTED [facility] Last Admin: 08/31/20 14:02 Dose: 999 mls/hr Documented by: Piperacillin/Tazobactam/ (Dextrose 4.5 gm/ Premix) 100 mls @ 100 mls/hr IV ONETIME ONE Stop: 08/31/20 15:14 Last Admin: 08/31/20 14:47 Dose: 100 mls/hr Documented by: Lactated Ringer's (Ringers, Lactated) 1,000 mls @ 500 mls/hr IV ASDIRECTED [facility] Last Admin: 08/31/20 16:35 Dose: 500 mls/hr Documented by: Piperacillin/Tazobactam/ (Dextrose 4.5 gm/ Premix) 100 mls @ 200 mls/hr IV Q6H [place] Lactated Ringer's (Ringers, Lactated) 1,000 mls @ 125 mls/hr IV ASDIRECTED [facility] Stop: 09/02/20 17:16 Last Admin: 09/02/20 13:03 Dose: 125 mls/hr Documented by: Piperacillin Sod/Tazobactam (Sod 2.25 gm/ Sodium Chloride) 50 mls @ 100 mls/hr IV Q6H [facility] Last Admin: 09/01/20 04:16 Dose: 100 mls/hr Documented by: Sodium Chloride (Normal Saline) Confirm Administered Dose 50 mls @ as directed .ROUTE .STK-MED ONE Stop: 08/31/20 21:56 Last Admin: 08/31/20 22:14 Dose: Not Given Documented by: Piperacillin/Tazobactam/ (Dextrose 4.5 gm/ Premix) 100 mls @ 200 mls/hr IV Q6H [facility] Last Admin: 09/02/20 10:30 Dose: 200 mls/hr Documented by: Ceftriaxone Sodium 1 gm/ (Sodium Chloride) 50 mls @ 100 mls/hr IV Q24H ONE Stop: 09/02/20 16:29 Last Admin: 09/02/20 15:36 Dose: 100 mls/hr Documented by: Ceftriaxone Sodium 1 gm/ (Sodium Chloride) 50 mls @ 100 mls/hr IV ONETIME ONE Stop: 09/03/20 09:29 Last Admin: 09/03/20 10:10 Dose: 100 mls/hr Documented by: Insulin Glargine (Insulin Glargine,Human Rec. Analog 100 Units/Ml 3 Ml Pen) 36 units SUBCUT BEDTIME [facility] Last Admin: 09/03/20 21:50 Dose: 36 units Documented by: Insulin Human Lispro (Insulin Lispro 100 Unit/Ml 3 Ml Kwikpen) 0 - 14 unit SUBCUT TIDMEALS [facility] Last Admin: 09/01/20 19:14 Dose: Not Given Documented by: Insulin Human Lispro (Insulin Lispro 100 Unit/Ml 3 Ml Kwikpen) 0 unit SUBCUT QIDACANDBED [facility]; Protocol Last Admin: 09/04/20 12:29 Dose: Not Given Documented by: Lactobacillus Rhamnosus (Lactobacillus Rhamnosus Gg (Probiotic) Cap) 1 cap PO BID [facility] Last Admin: 09/04/20 09:37 Dose: 1 cap Documented by: Loperamide HCl (Loperamide 2 Mg Cap) 2 mg PO ASDIRECTED PRN PRN Reason: Diarrhea Last Admin: 09/02/20 18:22 Dose: 2 mg Documented by: Loperamide HCl (Loperamide 2 Mg Cap) 4 mg PO ONETIME ONE Stop: 09/02/20 12:01 Last Admin: 09/02/20 11:27 Dose: 4 mg Documented by: Potassium Chloride (Potassium Chloride 20 Meq Tab.Er) 20 meq PO ONETIME ONE Stop: 09/01/20 17:01 Last Admin: 09/01/20 17:12 Dose: 20 meq Documented by: Potassium Chloride (Potassium Chloride 20 Meq Tab.Er) 80 meq PO NOW STA Stop: 09/04/20 09:16 Last Admin: 09/04/20 09:37 Dose: 80 meq Documented by: Potassium Chloride (Potassium Chloride 20 Meq Tab.Er) 60 meq PO ONETIME ONE Stop: 09/04/20 13:46 Last Admin: 09/04/20 14:29 Dose: 60 meq Documented by: - Exam Urinary Catheter Total Time: 3Days 0Hours General: Moderate Distress, Lethargic HEENT: Pupils Equal, Pupils Reactive, EOMI, Mucous Membr. Moist/[place] Neck: Supple Lungs: Clear to Auscultation, Normal Respiratory Effort Cardiovascular: Irregular Rhythm GI/Abdominal Exam: Normal Bowel Sounds Extremities: Pedal Edema Peripheral Pulses: 1+: Radial (L), Radial (R) Skin: Warm Psy/Mental Status: Labile Mood - Patient Data Lab Results Last 24 hrs: Laboratory Results - last 24 hr 09/04/20 09/04/20 09/04/20 Range/Units 08:13 08:13 12:30 WBC 9.8 (4.5-11.0) K/uL RBC 4.95 (4.30-5.90) M/uL Hgb 13.9 (12.0-15.0) g/dL Hct 41.7 (40.0-54.0) % MCV 84 (80-98) fL MCH 28 (27-31) pg MCHC 33 (32-36) % Plt Count 245 (150-400) K/uL Neut % (Auto) 76.7 H (36-66) % Lymph % (Auto) 11.6 L (24-44) % [place] % (Auto) 9.7 H (2-6) % Eos % (Auto) 1.8 L (2-4) % Baso % (Auto) 0.2 (0-1) % Sodium 140 (140-148) mmol/L Potassium 2.6 L* 3.0 L (3.6-5.2) mmol/L Chloride 101 (100-108) mmol/L Carbon Dioxide 30 (21-32) mmol/L Anion Gap 11.6 (5.0-14.0) mmol/L BUN 9 (7-18) mg/dL Creatinine 1.1 (0.8-1.3) mg/dL Est Cr Clr Drug Dosing 53.38 mL/min Estimated GFR (MDRD) > 60 (>60) Glucose 141 H (74-106) mg/dL Calcium 8.4 L (8.5-10.1) mg/dL Total Bilirubin 0.4 (0.2-1.0) mg/dL AST 11 L (15-37) U/L ALT 7 L (12-78) U/L Alkaline Phosphatase 52 (46-116) U/L Total Protein 6.2 L (6.4-8.2) g/dL Albumin 2.1 L (3.4-5.0) g/dL Globulin 4.1 H (2.3-3.5) g/dL Albumin/Globulin Ratio 0.5 L (1.2-2.2) Result Diagrams: 09/04/20 08:13 09/04/20 12:30 Samm Results Last 24 hrs: Microbiology 08/31/20 13:40 Aerobic Blood Culture - Preliminary Blood - Arm, Left NO GROWTH AFTER 4 DAYS Anaerobic Blood Culture - Preliminary NO GROWTH AFTER 4 DAYS 08/31/20 13:15 Aerobic Blood Culture - Preliminary Blood - Arm, Left NO GROWTH AFTER 4 DAYS Anaerobic Blood Culture - Preliminary NO GROWTH AFTER 4 DAYS Sepsis Event Note - Evaluation Sepsis Screening Result: No Definite Risk - Problem List Review Problem List Initiated/Reviewed/Updated: Yes - Plan Plan:: Assessment/Plan: #1. Sepsis. He was initially treated with Zosyn but change him over to Rocephin as he's been having diarrhea and that cultures did come back from the urine Escherichia coli. Temp 99. Final identification for the antibiotic choice is still pending. His cough has resolved from yesterday. #2. DM II: Will monitor BS and adjust as needed. #3. HTN: BP 131/54 pulse 81 today. #4. Diarrhea: I given him Lomotil and changing the antibiotic should hopefully resolve the diarrhea. He did have 2 episodes of diarrhea through the night but was more formed than yesterday. #5. Amnesia: Chronic #6. hx. of TIA #7. HLD: Stable #8. Atrial Fib. with pacemaker in place. #9. Obesity: Chronic #10; Hypokalemia: Daily and potassium and will check this as an outpatient as well his level today was 2.6. I gave him 80 mEq of potassium and recheck again it was 3 gave him 60 mEq more and then check in a week. Cultures so far are positive for Escherichia coli with wide sensitivities. He has had sufficient antibiotics and should be resolved. Plan will be discharged home.
--- NOTE | 2020-09-04 22:42 | PCM.DCSUM1 ---
Discharge Summary - Hospital Course Free Text/Narrative:: He was admitted from home when the couldn't get him up in the morning he was extremely weak and lethargic. This is very similar to what he was like last time he was admitted for septicemia of the urinary tract. Normally he can walk and must have assistance. Diagnosis: Stroke: No - Discharge Data Discharge Date: 09/04/20 Discharge Disposition: Home, Self-Care 01 Condition: Poor - Referral to Home Health Reason for Homebound Status: he is unable to care for himself or ambulate. Primary Care Physician: PCP None - Patient Summary/Data Consults: Consultations 08/31/20 17:10 Consult to Spiritual Care [CONS] Routine Spiritual Care Reason for Consult: End of Life Care Spiritual Care Specialty: Occupational Health Rn Special Instructions: family wants to have dnr for home Hospital Course: He was admitted and lethargic condition and cultures were done of the blood which were negative. Cultures of the urine grew out Escherichia coli with wide sensitivities. While he was in the hospital he did have diarrhea presumed secondary to the antibiotics given. The day before discharge during the night he did have 2 episodes of diarrhea but not as loose as has been. While in the hospital he did have an episode that we couldn't wake him up very similar to what he had at home but was next day had a CT of the head was done which was negative. He also had an evaluation for C. difficile because of the diarrhea this was negative. The day of discharge the felt that she could take care of him at home and does not want him in a care facility. His blood sugars were monitored while he was in the hospital and they were acceptable control. His potassium was found to be low and potassium was given and was restarted as some reason it wasn't noted and ordered when he came in to the hospital. - Patient Instructions Diet: Drink 8-10+ Glasses/Day, Diabetic Diet Activity: As Tolerated Showering/Bathing: May Shower Notify Provider of: Fever, Increased Pain, Nausea and/or Vomiting - Discharge Plan *PRESCRIPTION DRUG MONITORING PROGRAM REVIEWED*: Not Applicable Home Medications: Home Meds Furosemide 20 mg PO DAILY 04/10/15 [History] metFORMIN [Glucophage] 850 mg PO BIDMEALS 04/10/15 [History] Metoprolol Tartrate 25 mg PO BID 02/23/18 [History] Insulin Glargine,Hum.Rec.Anlog [Lantus Solostar] 36 units SUBCUT BEDTIME 05/06/19 [History] Insulin Lispro [HumaLOG] 1 unit SUBCUT ASDIRECTED 05/06/19 [History] Acetaminophen [Mapap] 650 mg PO Q6H PRN 01/22/20 [History] Bisacodyl [Laxative Suppository] 10 mg PO ASDIRECTED PRN 01/22/20 [History] Cholecalciferol (Vitamin D3) [Vitamin D3] 25 mcg PO DAILY 01/22/20 [History] Docusate Sodium 100 mg PO BEDTIME 01/22/20 [History] LORazepam [Ativan] 1 mg PO BEDTIME PRN 01/22/20 [History] Melatonin 6 mg PO BEDTIME 01/22/20 [History] Nystatin 1 dose TOP TID 01/22/20 [History] Triamcinolone Acetonide [Triamcinolone Acetonide 0.1% Crm] 1 dose PO BID 01/22/20 [History] polyethylene glycoL 3350 [MiraLAX] 1 dose PO DAILY 01/22/20 [History] Apixaban [Eliquis] 2.5 mg PO BID tablet 01/26/20 [Rx] Doxycycline [Doxycycline Hyclate] 100 mg PO BID 08/31/20 [History] Potassium Gluconate [Potassium] 2,400 mg PO DAILY 08/31/20 [History] Simvastatin 20 mg PO DAILY 08/31/20 [History] Spironolactone [Aldactone] 25 mg PO DAILY 08/31/20 [History] Temazepam [Restoril] 15 - 30 mg PO BEDTIME PRN 08/31/20 [History] Patient Handouts: Diarrhea, Adult, Urinary Tract Infection, Adult, [id number] Forms: ED Department Discharge Referrals: Rajesh Murphy Sr, MD [Physician] - (Please call Dr. Murphy's clinic to [facility] follow up appointment) - Discharge Summary/Plan Comment DC Time >30 min.: No Discharge Summary/Plan Comment: Assessment/Plan: #1. Sepsis. He was initially treated with Zosyn but change him over to Rocephin as he's been having diarrhea and that cultures did come back from the urine Escherichia coli. Temp 99. Final identification for the antibiotic choice is still pending. His cough has resolved from yesterday. #2. DM II: Will monitor BS and adjust as needed. #3. HTN: BP 131/54 pulse 81 today. #4. Diarrhea: I given him Lomotil and changing the antibiotic should hopefully resolve the diarrhea. #5. Amnesia: Chronic #6. hx. of TIA #7. HLD: Stable #8. Atrial Fib. with pacemaker in place. #9. Obesity: Chronic #10; Hypokalemia: Daily and potassium and will check this as an outpatient as well his level today was 2.6. I gave him 80 mEq of potassium and recheck again it was 3 gave him 60 mEq more and then check in a week. Cultures so far are positive for Escherichia coli with wide sensitivities. He has had sufficient antibiotics and should be resolved. Plan will be discharged home. She does have home care and nurses coming in.at home. - Patient Data Vitals - Most Recent: Last Vital Signs Temp 96.4 F L 09/04/20 10:28 Pulse 55 L 09/04/20 10:28 Resp 16 09/04/20 10:28 BP 137/62 09/04/20 10:28 Pulse Ox 93 L 09/04/20 10:28 Weight - Most Recent: 261 lb 11.195 oz I&O - Last 24 hours: Intake & Output 09/04/20 09/04/20 09/04/20 06:59 14:59 22:59 Intake Total 1350 Balance 1350 Lab Results - Last 24 hrs: Laboratory Results - last 24 hr 09/04/20 09/04/20 09/04/20 Range/Units 08:13 08:13 12:30 WBC 9.8 (4.5-11.0) K/uL RBC 4.95 (4.30-5.90) M/uL Hgb 13.9 (12.0-15.0) g/dL Hct 41.7 (40.0-54.0) % MCV 84 (80-98) fL MCH 28 (27-31) pg MCHC 33 (32-36) % Plt Count 245 (150-400) K/uL Neut % (Auto) 76.7 H (36-66) % Lymph % (Auto) 11.6 L (24-44) % [place] % (Auto) 9.7 H (2-6) % Eos % (Auto) 1.8 L (2-4) % Baso % (Auto) 0.2 (0-1) % Sodium 140 (140-148) mmol/L Potassium 2.6 L* 3.0 L (3.6-5.2) mmol/L Chloride 101 (100-108) mmol/L Carbon Dioxide 30 (21-32) mmol/L Anion Gap 11.6 (5.0-14.0) mmol/L BUN 9 (7-18) mg/dL Creatinine 1.1 (0.8-1.3) mg/dL Est Cr Clr Drug Dosing 53.38 mL/min Estimated GFR (MDRD) > 60 (>60) Glucose 141 H (74-106) mg/dL Calcium 8.4 L (8.5-10.1) mg/dL Total Bilirubin 0.4 (0.2-1.0) mg/dL AST 11 L (15-37) U/L ALT 7 L (12-78) U/L Alkaline Phosphatase 52 (46-116) U/L Total Protein 6.2 L (6.4-8.2) g/dL Albumin 2.1 L (3.4-5.0) g/dL Globulin 4.1 H (2.3-3.5) g/dL Albumin/Globulin Ratio 0.5 L (1.2-2.2) BREANNA Results - Last 24 hrs: Microbiology 08/31/20 13:40 Aerobic Blood Culture - Preliminary Blood - Arm, Left NO GROWTH AFTER 4 DAYS Anaerobic Blood Culture - Preliminary NO GROWTH AFTER 4 DAYS 08/31/20 13:15 Aerobic Blood Culture - Preliminary Blood - Arm, Left NO GROWTH AFTER 4 DAYS Anaerobic Blood Culture - Preliminary NO GROWTH AFTER 4 DAYS Med Orders - Current: Current Medications Discontinued Medications Acetaminophen (Acetaminophen 325 Mg Tab) 650 mg PO Q6H PRN PRN Reason: Pain Acetaminophen (Acetaminophen 325 Mg Tab) 650 mg PO Q6H PRN PRN Reason: Pain Apixaban (Apixaban 2.5 Mg Tab) 2.5 mg PO BID [place] Last Admin: 09/04/20 09:37 Dose: 2.5 mg Documented by: Bisacodyl (Bisacodyl 10 Mg Supp) 10 mg RECTAL ASDIRECTED PRN PRN Reason: Constipation Cholecalciferol (Cholecalciferol (Vitamin D3) 25 Mcg Tab) 25 mcg PO DAILY [facility] Last Admin: 09/04/20 09:37 Dose: 25 mcg Documented by: Dextrose/Water (50% Dextrose In Water 50 Ml Syringe) 50 ml IVPUSH ASDIRECTED PRN PRN Reason: Hypoglycemia Dimethicone/Zinc Oxide (Dimethicone 20%/Zinc Oxide 25% 56 Gm [place] Bottle) 0 gm TOP ASDIRECTED PRN PRN Reason: Rash Last Admin: 09/01/20 10:53 Dose: 1 appful Documented by: Docusate Sodium (Docusate Sodium 100 Mg Cap) 100 mg PO BEDTIME [facility] Last Admin: 09/03/20 21:49 Dose: Not Given Documented by: Furosemide (Furosemide 20 Mg Tab) 20 mg PO DAILY [facility] Last Admin: 09/04/20 09:37 Dose: 20 mg Documented by: Glucagon (Glucagon,Human Recombinant 1 Mg Vial) 1 mg IM ASDIRECTED PRN PRN Reason: Hypoglycemia Guaifenesin/Dextromethorphan (Guaifenesin/Dextromethorphan 100-10 Mg/5 Ml Soln 10 Ml Cup) 10 ml PO Q4H PRN PRN Reason: Cough Last Admin: 09/01/20 15:07 Dose: 10 ml Documented by: Lactated Ringer's (Ringers, Lactated) 1,000 mls @ 999 mls/hr IV ASDIRECTED [facility] Last Admin: 08/31/20 13:05 Dose: 999 mls/hr Documented by: Lactated Ringer's (Ringers, Lactated) 1,000 mls @ 999 mls/hr IV ASDIRECTED [facility] Last Admin: 08/31/20 14:02 Dose: 999 mls/hr Documented by: Piperacillin/Tazobactam/ (Dextrose 4.5 gm/ Premix) 100 mls @ 100 mls/hr IV ONETIME ONE Stop: 08/31/20 15:14 Last Admin: 08/31/20 14:47 Dose: 100 mls/hr Documented by: Lactated Ringer's (Ringers, Lactated) 1,000 mls @ 500 mls/hr IV ASDIRECTED [facility] Last Admin: 08/31/20 16:35 Dose: 500 mls/hr Documented by: Piperacillin/Tazobactam/ (Dextrose 4.5 gm/ Premix) 100 mls @ 200 mls/hr IV Q6H [facility] Lactated Ringer's (Ringers, Lactated) 1,000 mls @ 125 mls/hr IV ASDIRECTED [facility] Stop: 09/02/20 17:16 Last Admin: 09/02/20 13:03 Dose: 125 mls/hr Documented by: Piperacillin Sod/Tazobactam (Sod 2.25 gm/ Sodium Chloride) 50 mls @ 100 mls/hr IV Q6H [facility] Last Admin: 09/01/20 04:16 Dose: 100 mls/hr Documented by: Sodium Chloride (Normal Saline) Confirm Administered Dose 50 mls @ as directed .ROUTE .STK-MED ONE Stop: 08/31/20 21:56 Last Admin: 08/31/20 22:14 Dose: Not Given Documented by: Piperacillin/Tazobactam/ (Dextrose 4.5 gm/ Premix) 100 mls @ 200 mls/hr IV Q6H [facility] Last Admin: 09/02/20 10:30 Dose: 200 mls/hr Documented by: Ceftriaxone Sodium 1 gm/ (Sodium Chloride) 50 mls @ 100 mls/hr IV Q24H ONE Stop: 09/02/20 16:29 Last Admin: 09/02/20 15:36 Dose: 100 mls/hr Documented by: Ceftriaxone Sodium 1 gm/ (Sodium Chloride) 50 mls @ 100 mls/hr IV ONETIME ONE Stop: 09/03/20 09:29 Last Admin: 09/03/20 10:10 Dose: 100 mls/hr Documented by: Insulin Glargine (Insulin Glargine,Human Rec. Analog 100 Units/Ml 3 Ml Pen) 36 units SUBCUT BEDTIME [facility] Last Admin: 09/03/20 21:50 Dose: 36 units Documented by: Insulin Human Lispro (Insulin Lispro 100 Unit/Ml 3 Ml Kwikpen) 0 - 14 unit SUBCUT TIDMEALS [facility] Last Admin: 09/01/20 19:14 Dose: Not Given Documented by: Insulin Human Lispro (Insulin Lispro 100 Unit/Ml 3 Ml Kwikpen) 0 unit SUBCUT QIDACANDBED [facility]; Protocol Last Admin: 09/04/20 12:29 Dose: Not Given Documented by: Lactobacillus Rhamnosus (Lactobacillus Rhamnosus Gg (Probiotic) Cap) 1 cap PO BID [facility] Last Admin: 09/04/20 09:37 Dose: 1 cap Documented by: Loperamide HCl (Loperamide 2 Mg Cap) 2 mg PO ASDIRECTED PRN PRN Reason: Diarrhea Last Admin: 09/02/20 18:22 Dose: 2 mg Documented by: Loperamide HCl (Loperamide 2 Mg Cap) 4 mg PO ONETIME ONE Stop: 09/02/20 12:01 Last Admin: 09/02/20 11:27 Dose: 4 mg Documented by: Potassium Chloride (Potassium Chloride 20 Meq Tab.Er) 20 meq PO ONETIME ONE Stop: 09/01/20 17:01 Last Admin: 09/01/20 17:12 Dose: 20 meq Documented by: Potassium Chloride (Potassium Chloride 20 Meq Tab.Er) 80 meq PO NOW STA Stop: 09/04/20 09:16 Last Admin: 09/04/20 09:37 Dose: 80 meq Documented by: Potassium Chloride (Potassium Chloride 20 Meq Tab.Er) 60 meq PO ONETIME ONE Stop: 09/04/20 13:46 Last Admin: 09/04/20 14:29 Dose: 60 meq Documented by:
== END 2020-09-04 15:37 | disposition home or self-care (01) | DRG 872 ==
LOC: JP.ED 13:02 → JP.ICU 15:57 → JP.MS 09-02 14:48
PROVIDERS: ADMIT Internal Medicine; ATTEND Internal Medicine
DX: A41.9 Sepsis, unspecified organism (principal); A41.51 Sepsis due to Escherichia coli [E. coli]; K52.1 Toxic gastroenteritis and colitis; I69.351 Hemiplegia and hemiparesis following cerebral infarction affecting right dominant side; N39.0 Urinary tract infection, site not specified; T36.0X5A Adverse effect of penicillins, initial encounter; R41.3 Other amnesia; E78.5 Hyperlipidemia, unspecified; I48.91 Unspecified atrial fibrillation; E66.9 Obesity, unspecified; E87.6 Hypokalemia; H54.7 Unspecified visual loss; I25.10 Atherosclerotic heart disease of native coronary artery without angina pectoris; Z86.73 Personal history of transient ischemic attack (TIA), and cerebral infarction without residual deficits; I11.0 Hypertensive heart disease with heart failure; I50.9 Heart failure, unspecified; K21.9 Gastro-esophageal reflux disease without esophagitis; M54.9 Dorsalgia, unspecified; G89.29 Other chronic pain; E11.9 Type 2 diabetes mellitus without complications; R05 Cough; L08.89 Other specified local infections of the skin and subcutaneous tissue; I87.2 Venous insufficiency (chronic) (peripheral); Z88.8 Allergy status to other drugs, medicaments and biological substances; Z79.4 Long term (current) use of insulin; Z79.899 Other long term (current) drug therapy; Z95.0 Presence of cardiac pacemaker; Z87.891 Personal history of nicotine dependence; Z95.5 Presence of coronary angioplasty implant and graft; Z95.1 Presence of aortocoronary bypass graft; Z79.01 Long term (current) use of anticoagulants
CPT/HCPCS: 36415; 51702; 71045 ×2; 80053; 81001; 83605; 85025; 87040 ×2; 87086; 87088; 87186; 96365; 99285; J2543; J7120 ×2; 70450; 82947; 84132; 87493; A9270-GY; J0696; J1815; J1815-GY

== ENCOUNTER 2021-06-24 13:39 | Inpatient (IN) | payer MEDICARE ==
[2021-06-24] MEDS ORDERED: Sodium Chloride 0.9% 10 ML Syringe FLUSH PRN (15:28)
[2021-06-24] MEDS ORDERED: 50% Dextrose in Water 50 ML Syringe IVPUSH PRN ×2 (15:38→18:09)
[2021-06-24] MEDS ORDERED: Glucagon,Human Recombinant 1 MG Vial IM PRN ×2 (15:38→18:09)
[2021-06-24] MEDS ORDERED: Insulin Lispro 100 Units/ML 3 ML Vial SUBCUT SCH (15:45)
[2021-06-24] MEDS ORDERED: Acetaminophen 325 MG Tab PO PRN (15:45)
[2021-06-24] MEDS: Sodium Chloride 0.9% 1,000 ML IV SCH (16:57)
[2021-06-24] MEDS: Insulin Lispro 100 Unit/ML 3 ML KwikPen SUBCUT SCH ×2 (18:21→21:40)
[2021-06-24] MEDS: Melatonin 3 MG Tab PO SCH (21:38)
[2021-06-24] MEDS: Potassium Chloride 10 MEQ Cap.ER PO SCH (21:38)
[2021-06-24] MEDS: Metoprolol Tartrate 25 MG Tab PO SCH (21:38)
[2021-06-24] MEDS: Apixaban 2.5 MG Tab PO SCH (21:38)
[2021-06-24] MEDS: Insulin Glargine,Human Rec. Analog 100 Units/ML 3 ML Pen SUBCUT SCH (21:41)
[2021-06-24] MEDS: Nystatin Topical Powder 15 GM Bottle TOP SCH (21:42)
[2021-06-24] MEDS: Levofloxacin/Dextrose 5%-Water 250 MG in Premix Bag 1 BAG IV SCH (21:42)
[2021-06-25] MEDS: Insulin Lispro 100 Unit/ML 3 ML KwikPen SUBCUT SCH ×4 (07:24→21:50)
[2021-06-25] MEDS: Sodium Chloride 0.9% 1,000 ML IV SCH ×2 (07:28→21:15)
[2021-06-25] MEDS: Metoprolol Tartrate 25 MG Tab PO SCH ×2 (08:41→21:54)
[2021-06-25] MEDS: Furosemide 20 MG Tab PO SCH (08:42)
[2021-06-25] MEDS: Potassium Chloride 10 MEQ Cap.ER PO SCH ×3 (08:42→21:54)
[2021-06-25] MEDS: Spironolactone 25 MG Tab PO SCH (08:42)
[2021-06-25] MEDS: Apixaban 2.5 MG Tab PO SCH ×2 (08:42→21:53)
[2021-06-25] MEDS: Cholecalciferol (Vitamin D3) 25 MCG Tab PO SCH (08:42)
[2021-06-25] MEDS: Nystatin Topical Powder 15 GM Bottle TOP SCH ×3 (08:43→21:54)
[2021-06-25] MEDS ORDERED: Iohexol 647 MG/ML 50 ML SDV PO SCH (10:00)
[2021-06-25] MEDS ORDERED: Iopamidol 612 MG/ML 50 ML SDV ONE (10:02)
[2021-06-25] MEDS ORDERED: Sodium Chloride 0.9% 10 ML Syringe FLUSH ONE (11:40)
[2021-06-25] MEDS ORDERED: Sodium Chloride 0.9% 50 ML IV SCH (11:45)
[2021-06-25] MEDS ORDERED: Iopamidol 612 MG/ML 100 ML Bottle IV SCH (11:45)
[2021-06-25] MEDS ORDERED: Dimethicone 20%/Zinc Oxide 25% 56 GM Spray Bottle TOP ONE (18:24)
[2021-06-25] MEDS ORDERED: Dimethicone 20%/Zinc Oxide 25% 56 GM Spray Bottle TOP PRN (18:37)
[2021-06-25] MEDS: Insulin Glargine,Human Rec. Analog 100 Units/ML 3 ML Pen SUBCUT SCH (21:51)
[2021-06-25] MEDS: Melatonin 3 MG Tab PO SCH (21:53)
[2021-06-25] MEDS: Levofloxacin/Dextrose 5%-Water 250 MG in Premix Bag 1 BAG IV SCH (21:57)
[2021-06-26] MEDS: Insulin Lispro 100 Unit/ML 3 ML KwikPen SUBCUT SCH (07:59)
[2021-06-26] MEDS: Potassium Chloride 10 MEQ Cap.ER PO SCH (09:57)
[2021-06-26] MEDS: Spironolactone 25 MG Tab PO SCH (09:57)
[2021-06-26] MEDS: Furosemide 20 MG Tab PO SCH (09:58)
[2021-06-26] MEDS: Apixaban 2.5 MG Tab PO SCH (09:58)
[2021-06-26] MEDS: Metoprolol Tartrate 25 MG Tab PO SCH (09:58)
[2021-06-26] MEDS: Nystatin Topical Powder 15 GM Bottle TOP SCH (09:59)
[2021-06-26 10:00] VITALS: BP 107/72; PULSE 60
[2021-06-26] MEDS: Cholecalciferol (Vitamin D3) 25 MCG Tab PO SCH (10:00)
== END 2021-06-26 11:22 | disposition home or self-care (01) | DRG 65 ==
LOC: JP.ED 13:39 → JP.MS 15:28
PROVIDERS: ADMIT Internal Medicine; ATTEND Internal Medicine
DX: R40.0 Somnolence (principal); R53.1 Weakness; I63.9 Cerebral infarction, unspecified; N39.0 Urinary tract infection, site not specified; G45.9 Transient cerebral ischemic attack, unspecified; Z68.41 Body mass index [BMI] 40.0-44.9, adult; R19.7 Diarrhea, unspecified; I95.9 Hypotension, unspecified; E66.9 Obesity, unspecified; I11.0 Hypertensive heart disease with heart failure; I50.9 Heart failure, unspecified; I69.351 Hemiplegia and hemiparesis following cerebral infarction affecting right dominant side; Z95.1 Presence of aortocoronary bypass graft; Z66 Do not resuscitate; Z79.01 Long term (current) use of anticoagulants; H54.7 Unspecified visual loss; I25.10 Atherosclerotic heart disease of native coronary artery without angina pectoris; K21.9 Gastro-esophageal reflux disease without esophagitis; M54.9 Dorsalgia, unspecified; G89.29 Other chronic pain; E11.9 Type 2 diabetes mellitus without complications; Z88.8 Allergy status to other drugs, medicaments and biological substances; Z95.0 Presence of cardiac pacemaker; Z79.4 Long term (current) use of insulin; Z79.899 Other long term (current) drug therapy
CPT/HCPCS: 36415; 51702; 70450; 74177; 80053; 81001; 83605; 84484; 85025; 87046; 87086; 87088; 87177; 87186; 87209; 87899; 89055; 99285; 99285-25; A9270-GY; J1815; J1815-GY; J1956; J3490; J7030; Q9967

== ENCOUNTER 2021-08-29 12:58 | Emergency (ER) | payer MEDICARE ==
[2021-08-29] MEDS ORDERED: Lactated Ringers 1,000 ML IV SCH (14:15)
[2021-08-29] MEDS ORDERED: PIPERACILLIN IV SCH (14:30)
[2021-08-29] MEDS ORDERED: TAZOBACTAM IV SCH (14:30)
[2021-08-29] MEDS ORDERED: SODIUM CHLORIDE 0.9% IV SCH (14:30)
[2021-08-29] MEDS ORDERED: Piperacillin/Tazobactam/Dext 4.5 GM in Premix Bag 1 BAG IV ONE (14:30)
[2021-08-29] MEDS ORDERED: Iopamidol 612 MG/ML 100 ML Bottle IV PRN (14:53)
[2021-08-29] MEDS ORDERED: Sodium Chloride 0.9% 75 ML IV SCH (15:00)
[2021-08-29 15:03] LABS: ESTIMATED GFR 53 (>60)
[2021-08-29] MEDS ORDERED: Lactated Ringers 1,000 ML IV ONE (16:11)
[2021-08-29 18:45] VITALS: BP 162/52; PULSE 63
== END 2021-08-29 21:07 | disposition home or self-care (01) ==
LOC: JP.ED 12:58 → UNDOADMIN 08-30 16:45 → JP.MS 08-30 16:45
DX: R53.1 Weakness (principal); R79.82 Elevated C-reactive protein (CRP); R74.02 Elevation of levels of lactic acid dehydrogenase [LDH]; D72.829 Elevated white blood cell count, unspecified; I25.10 Atherosclerotic heart disease of native coronary artery without angina pectoris; K21.9 Gastro-esophageal reflux disease without esophagitis; E11.9 Type 2 diabetes mellitus without complications; E66.9 Obesity, unspecified; Z86.73 Personal history of transient ischemic attack (TIA), and cerebral infarction without residual deficits; Z95.0 Presence of cardiac pacemaker; Z88.8 Allergy status to other drugs, medicaments and biological substances; Z79.4 Long term (current) use of insulin; Z79.01 Long term (current) use of anticoagulants; Z79.899 Other long term (current) drug therapy; Z68.41 Body mass index [BMI] 40.0-44.9, adult
CPT/HCPCS: 36415; 71045; 74177; 80053; 81001; 83605; 83880; 84145; 84484; 85025; 86140; 87040; 87077; 87086; 87186; 96361; 96365; 99285; J2543; J3490; J7120; Q9967

== ENCOUNTER 2021-08-30 12:00 | Inpatient (IN) | payer MEDICARE ==
[2021-08-30] MEDS ORDERED: Lactated Ringers 1,000 ML IV SCH (12:45)
[2021-08-30] MEDS ORDERED: Piperacillin/Tazobactam 4.5 GM in Sodium Chloride 0.9% 50 ML IV SCH (12:45)
[2021-08-30 13:18] LABS: ESTIMATED GFR 53 (>60)
[2021-08-30] MEDS: Piperacillin/Tazobactam/Dext 4.5 GM in Premix Bag 1 BAG IV SCH ×2 (13:42→19:30)
[2021-08-30] MEDS ORDERED: fentaNYL 100 MCG/2 ML SDV IVPUSH ONE (13:54)
[2021-08-30 16:37] LABS: CORONAVIRUS COVID-19 NAA NEGATIVE (NEGATIVE)
[2021-08-30] MEDS ORDERED: 50% Dextrose in Water 50 ML Syringe IVPUSH PRN (20:24)
[2021-08-30] MEDS ORDERED: Glucagon,Human Recombinant 1 MG Vial IM PRN (20:24)
[2021-08-30] MEDS ORDERED: Polyethylene Glycol 3350 Powder 17 GM Packet PO PRN (20:24)
[2021-08-30] MEDS ORDERED: Insulin Lispro 100 Units/ML 3 ML Vial SUBCUT SCH (20:30)
[2021-08-30] MEDS ORDERED: Nystatin Topical Powder 15 GM Bottle TOP SCH (21:00)
[2021-08-30] MEDS: Metoprolol Tartrate 25 MG Tab PO SCH (21:04)
[2021-08-30] MEDS: Apixaban 2.5 MG Tab PO SCH (21:04)
[2021-08-30] MEDS: Melatonin 3 MG Tab PO SCH (21:05)
[2021-08-30] MEDS: Potassium Chloride 10 MEQ Cap.ER PO SCH (21:05)
[2021-08-30] MEDS: Insulin Glargine,Human Rec. Analog 100 Units/ML 3 ML Pen SUBCUT SCH (21:13)
[2021-08-30] MEDS: Triamcinolone Acetonide 0.1% Crm 15 GM Tube TOP SCH (21:25)
[2021-08-30] MEDS: Insulin Lispro 100 Unit/ML 3 ML KwikPen SUBCUT SCH (21:47)
[2021-08-30] MEDS ORDERED: Acetaminophen 325 MG Tab PO PRN (23:41)
[2021-08-30] MEDS ORDERED: Acetaminophen/HYDROcodone 325-5 MG Tab PO PRN (23:41)
[2021-08-31] MEDS ORDERED: HYDROmorphone 1 MG/ML Syringe IVPUSH PRN (00:03)
[2021-08-31] MEDS: Insulin Lispro 100 Unit/ML 3 ML KwikPen SUBCUT SCH ×5 (00:18→21:43)
[2021-08-31] MEDS: Piperacillin/Tazobactam/Dext 4.5 GM in Premix Bag 1 BAG IV SCH ×4 (01:15→19:37)
[2021-08-31 06:38] LABS: ESTIMATED GFR 53 (>60)
[2021-08-31] MEDS: Cholecalciferol (Vitamin D3) 25 MCG Tab PO SCH (08:22)
[2021-08-31] MEDS: Spironolactone 25 MG Tab PO SCH (08:23)
[2021-08-31] MEDS: Metoprolol Tartrate 25 MG Tab PO SCH ×2 (08:23→21:47)
[2021-08-31] MEDS: Apixaban 2.5 MG Tab PO SCH ×2 (08:23→21:46)
[2021-08-31] MEDS: Potassium Chloride 10 MEQ Cap.ER PO SCH ×3 (08:23→21:47)
[2021-08-31] MEDS: Triamcinolone Acetonide 0.1% Crm 15 GM Tube TOP SCH ×2 (08:28→21:52)
[2021-08-31] MEDS: Nystatin Topical Powder 15 GM Bottle TOP SCH ×3 (08:29→21:53)
[2021-08-31] MEDS: Furosemide 20 MG Tab PO SCH (08:32)
[2021-08-31] MEDS: Insulin Glargine,Human Rec. Analog 100 Units/ML 3 ML Pen SUBCUT SCH (21:45)
[2021-08-31] MEDS: Melatonin 3 MG Tab PO SCH (21:46)
[2021-09-01] MEDS: Piperacillin/Tazobactam/Dext 4.5 GM in Premix Bag 1 BAG IV SCH ×3 (01:19→13:55)
[2021-09-01] MEDS: Insulin Lispro 100 Unit/ML 3 ML KwikPen SUBCUT SCH ×3 (08:12→16:31)
[2021-09-01] MEDS: Spironolactone 25 MG Tab PO SCH (08:27)
[2021-09-01] MEDS: Metoprolol Tartrate 25 MG Tab PO SCH (08:27)
[2021-09-01] MEDS: Apixaban 2.5 MG Tab PO SCH (08:27)
[2021-09-01] MEDS: Potassium Chloride 10 MEQ Cap.ER PO SCH ×2 (08:28→13:16)
[2021-09-01] MEDS: Triamcinolone Acetonide 0.1% Crm 15 GM Tube TOP SCH (08:28)
[2021-09-01] MEDS: Furosemide 20 MG Tab PO SCH (08:28)
[2021-09-01] MEDS: Cholecalciferol (Vitamin D3) 25 MCG Tab PO SCH (08:29)
[2021-09-01] MEDS: Nystatin Topical Powder 15 GM Bottle TOP SCH ×2 (08:29→13:56)
[2021-09-01 14:01] VITALS: BP 115/47; PULSE 62
[2021-09-01 18:12] LABS: ESTIMATED GFR 45 (>60)
== END 2021-09-01 18:55 | disposition home or self-care (01) | DRG 872 ==
LOC: JP.ED 12:00 → JP.MS 16:45
PROVIDERS: ADMIT Internal Medicine; ATTEND Internal Medicine
DX: R78.81 Bacteremia (principal); B96.89 Other specified bacterial agents as the cause of diseases classified elsewhere; A41.89 Other specified sepsis; N39.0 Urinary tract infection, site not specified; E78.5 Hyperlipidemia, unspecified; I48.91 Unspecified atrial fibrillation; E66.01 Morbid (severe) obesity due to excess calories; I69.351 Hemiplegia and hemiparesis following cerebral infarction affecting right dominant side; F03.90 Unspecified dementia, unspecified severity, without behavioral disturbance, psychotic disturbance, mood disturbance, and anxiety; Z20.822 Contact with and (suspected) exposure to COVID-19; Z79.01 Long term (current) use of anticoagulants; H54.7 Unspecified visual loss; I25.10 Atherosclerotic heart disease of native coronary artery without angina pectoris; I50.9 Heart failure, unspecified; K21.9 Gastro-esophageal reflux disease without esophagitis; M54.9 Dorsalgia, unspecified; G89.29 Other chronic pain; E11.9 Type 2 diabetes mellitus without complications; Z88.8 Allergy status to other drugs, medicaments and biological substances; Z79.4 Long term (current) use of insulin; Z79.899 Other long term (current) drug therapy; Z95.0 Presence of cardiac pacemaker; Z87.891 Personal history of nicotine dependence
CPT/HCPCS: 0241U; 36415; 71045; 80053; 80202; 81001; 82565; 82947; 83605; 84145; 84484; 85025; 86140; 93925; 93970; 94762; 96361; 96365; 96366; 96368; 96375; 99285; A9270-GY; J0290; J1170; J1815; J1815-GY; J2543; J3010; J3370; J7050; J7120

== ENCOUNTER 2022-01-18 12:32 | Inpatient (IN) | payer MEDICARE ==
[2022-01-18 13:42] LABS: ESTIMATED GFR 40 mL/min (>60)
[2022-01-18] MEDS ORDERED: cefTRIAXone 1 GM in Sodium Chloride 0.9% 50 ML IV ONE (13:48)
[2022-01-18] MEDS ORDERED: 50% Dextrose in Water 50 ML Syringe IVPUSH PRN (14:13)
[2022-01-18] MEDS ORDERED: Glucagon,Human Recombinant 1 MG Vial IM PRN (14:13)
[2022-01-18] MEDS ORDERED: Acetaminophen 325 MG Tab PO PRN (14:13)
[2022-01-18] MEDS ORDERED: Polyethylene Glycol 3350 Powder 17 GM Packet PO PRN (14:13)
[2022-01-18] MEDS ORDERED: Insulin Lispro 100 Units/ML 3 ML Vial SUBCUT SCH (14:15)
[2022-01-18] MEDS: Sodium Chloride 0.9% 1,000 ML IV SCH ×2 (16:23→23:47)
[2022-01-18] MEDS: Insulin Lispro 100 Unit/ML 3 ML KwikPen SUBCUT SCH ×2 (16:27→22:10)
[2022-01-18] MEDS: Morphine 10 MG/0.5 ML Oral Syringe PO PRN (17:37)
[2022-01-18] MEDS: POTASSIUM CHLORIDE 10 MEQ PO SCH (17:39)
[2022-01-18] MEDS: Metoprolol Tartrate 50 MG **PTOM PO SCH (21:43)
[2022-01-18] MEDS: APIXABAN 2.5 MG PO SCH (21:43)
[2022-01-18] MEDS: Melatonin 3 MG Tab PO SCH (21:43)
[2022-01-18] MEDS: Insulin Glargine,Human Rec. Analog 100 Units/ML 3 ML Pen SUBCUT SCH (21:51)
[2022-01-18] MEDS: Triamcinolone Acetonide 0.1% Crm 15 GM Tube TOP SCH (22:12)
[2022-01-18] MEDS: Nystatin Topical Powder 15 GM Bottle TOP SCH (22:12)
[2022-01-19] MEDS: Morphine 10 MG/0.5 ML Oral Syringe PO PRN ×2 (01:13→09:16)
[2022-01-19] MEDS: Acetaminophen 650 MG Supp RECTAL PRN ×2 (02:53→20:07)
[2022-01-19 05:36] LABS: ESTIMATED GFR 43 mL/min (>60)
[2022-01-19] MEDS: POTASSIUM CHLORIDE 10 MEQ PO SCH ×3 (07:21→17:17)
[2022-01-19] MEDS: cefTRIAXone 1 GM in Sodium Chloride 0.9% 50 ML IV SCH (07:25)
[2022-01-19] MEDS: Insulin Lispro 100 Unit/ML 3 ML KwikPen SUBCUT SCH ×4 (07:41→21:30)
[2022-01-19] MEDS: Sodium Chloride 0.9% 1,000 ML IV SCH ×2 (07:43→15:58)
[2022-01-19] MEDS ORDERED: METFORMIN 850 MG PO SCH (08:00)
[2022-01-19] MEDS: APIXABAN 2.5 MG PO SCH ×2 (08:23→20:00)
[2022-01-19] MEDS: Furosemide 20 MG **PTOM PO SCH (08:24)
[2022-01-19] MEDS: Metoprolol Tartrate 50 MG **PTOM PO SCH ×2 (08:25→20:00)
[2022-01-19] MEDS: Nystatin Topical Powder 15 GM Bottle TOP SCH ×3 (08:25→20:01)
[2022-01-19] MEDS: Cholecalciferol (Vitamin D3) 25 MCG **PTOM PO SCH (08:26)
[2022-01-19] MEDS: Triamcinolone Acetonide 0.1% Crm 15 GM Tube TOP SCH ×2 (08:26→20:01)
[2022-01-19] MEDS: Spironolactone 25 MG Tab PO SCH (08:28)
[2022-01-19] MEDS ORDERED: Levofloxacin/Dextrose 5%-Water 250 MG in Premix Bag 1 BAG IV SCH (16:00)
[2022-01-19] MEDS ORDERED: cefTRIAXone 2 GM in Sodium Chloride 0.9% 50 ML IV ONE (16:01)
[2022-01-19] MEDS: Levofloxacin/Dextrose 5%-Water 250 MG in Premix Bag 1 BAG IV SCH (17:17)
[2022-01-19] MEDS: Melatonin 3 MG Tab PO SCH (20:00)
[2022-01-19] MEDS: Insulin Glargine,Human Rec. Analog 100 Units/ML 3 ML Pen SUBCUT SCH (21:35)
[2022-01-20] MEDS: Sodium Chloride 0.9% 1,000 ML IV SCH (05:05)
[2022-01-20] MEDS: Insulin Lispro 100 Unit/ML 3 ML KwikPen SUBCUT SCH ×4 (08:34→21:34)
[2022-01-20] MEDS: Spironolactone 25 MG Tab PO SCH (08:42)
[2022-01-20] MEDS: cefTRIAXone 1 GM in Sodium Chloride 0.9% 50 ML IV SCH (08:42)
[2022-01-20] MEDS: APIXABAN 2.5 MG PO SCH ×2 (08:43→20:46)
[2022-01-20] MEDS: Furosemide 20 MG **PTOM PO SCH (08:44)
[2022-01-20] MEDS: Nystatin Topical Powder 15 GM Bottle TOP SCH ×3 (08:45→20:51)
[2022-01-20] MEDS: Triamcinolone Acetonide 0.1% Crm 15 GM Tube TOP SCH ×2 (08:46→20:51)
[2022-01-20] MEDS: Metoprolol Tartrate 50 MG **PTOM PO SCH ×2 (08:46→20:46)
[2022-01-20] MEDS: Cholecalciferol (Vitamin D3) 25 MCG **PTOM PO SCH (08:46)
[2022-01-20] MEDS: POTASSIUM CHLORIDE 10 MEQ PO SCH ×3 (08:47→16:44)
[2022-01-20] MEDS: Levofloxacin/Dextrose 5%-Water 250 MG in Premix Bag 1 BAG IV SCH (16:42)
[2022-01-20] MEDS: Melatonin 3 MG Tab PO SCH (20:42)
[2022-01-20] MEDS: Insulin Glargine,Human Rec. Analog 100 Units/ML 3 ML Pen SUBCUT SCH (21:31)
[2022-01-21] MEDS: Insulin Lispro 100 Unit/ML 3 ML KwikPen SUBCUT SCH ×4 (07:42→21:34)
[2022-01-21] MEDS: POTASSIUM CHLORIDE 10 MEQ PO SCH ×3 (07:46→17:18)
[2022-01-21] MEDS: cefTRIAXone 1 GM in Sodium Chloride 0.9% 50 ML IV SCH (07:56)
[2022-01-21] MEDS: Spironolactone 25 MG Tab PO SCH (08:03)
[2022-01-21] MEDS: APIXABAN 2.5 MG PO SCH ×2 (08:03→21:34)
[2022-01-21] MEDS: Furosemide 20 MG **PTOM PO SCH (08:03)
[2022-01-21] MEDS: Metoprolol Tartrate 50 MG **PTOM PO SCH (08:04)
[2022-01-21] MEDS: Nystatin Topical Powder 15 GM Bottle TOP SCH ×3 (08:04→21:35)
[2022-01-21] MEDS: Triamcinolone Acetonide 0.1% Crm 15 GM Tube TOP SCH ×2 (08:05→21:35)
[2022-01-21] MEDS: Cholecalciferol (Vitamin D3) 25 MCG **PTOM PO SCH (08:05)
[2022-01-21] MEDS: Insulin Glargine,Human Rec. Analog 100 Units/ML 3 ML Pen SUBCUT SCH (21:34)
[2022-01-21] MEDS: Metoprolol Tartrate 25 MG Tab PO SCH (21:34)
[2022-01-21] MEDS: Melatonin 3 MG Tab PO SCH (21:35)
[2022-01-22] MEDS: Insulin Lispro 100 Unit/ML 3 ML KwikPen SUBCUT SCH ×2 (07:40→11:46)
[2022-01-22 08:37] VITALS: BP 127/67; PULSE 61
[2022-01-22] MEDS: cefTRIAXone 1 GM in Sodium Chloride 0.9% 50 ML IV SCH (08:58)
[2022-01-22] MEDS: Spironolactone 25 MG Tab PO SCH (08:58)
[2022-01-22] MEDS: POTASSIUM CHLORIDE 10 MEQ PO SCH (08:59)
[2022-01-22] MEDS: APIXABAN 2.5 MG PO SCH (08:59)
[2022-01-22] MEDS: Metoprolol Tartrate 25 MG Tab PO SCH (08:59)
[2022-01-22] MEDS: Nystatin Topical Powder 15 GM Bottle TOP SCH (09:00)
[2022-01-22] MEDS ORDERED: Cholecalciferol (Vitamin D3) 25 MCG PO SCH (09:00)
[2022-01-22] MEDS: Triamcinolone Acetonide 0.1% Crm 15 GM Tube TOP SCH (09:00)
[2022-01-22] MEDS ORDERED: Sodium Phosphate,Monobasic/Sodium Phosphate,Dibasic Enema 133 ML Bottle RECTAL ONE (09:39)
[2022-01-22] MEDS ORDERED: Bisacodyl 10 MG Supp RECTAL PRN (09:39)
== END 2022-01-22 12:52 | disposition home or self-care (01) | DRG 690 ==
LOC: JP.ED 12:32 → JP.ICU 14:02 → OBSVTOIN 01-19 13:55
PROVIDERS: ADMIT Internal Medicine; ATTEND Hospitalist
DX: N30.01 Acute cystitis with hematuria (principal); R53.1 Weakness; R40.0 Somnolence; I48.20 Chronic atrial fibrillation, unspecified; Z20.822 Contact with and (suspected) exposure to COVID-19; B96.1 Klebsiella pneumoniae [K. pneumoniae] as the cause of diseases classified elsewhere; Z66 Do not resuscitate; K21.9 Gastro-esophageal reflux disease without esophagitis; I69.351 Hemiplegia and hemiparesis following cerebral infarction affecting right dominant side; G71.00 Muscular dystrophy, unspecified; Z99.3 Dependence on wheelchair; I25.10 Atherosclerotic heart disease of native coronary artery without angina pectoris; I50.9 Heart failure, unspecified; I11.0 Hypertensive heart disease with heart failure; E11.9 Type 2 diabetes mellitus without complications; E66.9 Obesity, unspecified; I48.91 Unspecified atrial fibrillation; Z68.34 Body mass index [BMI] 34.0-34.9, adult; Z95.1 Presence of aortocoronary bypass graft; Z88.8 Allergy status to other drugs, medicaments and biological substances; Z95.0 Presence of cardiac pacemaker; Z79.899 Other long term (current) drug therapy; Z86.73 Personal history of transient ischemic attack (TIA), and cerebral infarction without residual deficits; Z79.4 Long term (current) use of insulin; Z95.5 Presence of coronary angioplasty implant and graft; Z79.01 Long term (current) use of anticoagulants
CPT/HCPCS: 36415 ×2; 70450 ×2; 71045 ×2; 80053 ×2; 81001; 82947 ×4; 85025 ×2; 87040 ×2; 87086; 87088; 87186; A9270 ×14; J0696 ×2; J1815 ×2; J7030 ×3; U0002; 80048; 96361; 96365; 96366; 99233; 99238; 99285; G0378; J1956

== ENCOUNTER 2022-07-18 14:44 | Inpatient (IN) | payer MEDICARE ==
[2022-07-18] MEDS ORDERED: Sodium Chloride 0.9% 1,000 ML IV SCH ×2 (15:15→16:15)
[2022-07-18 15:33] LABS: ESTIMATED GFR 43 mL/min (>60)
[2022-07-18] MEDS ORDERED: cefTRIAXone 2 GM in Sodium Chloride 0.9% 50 ML IV ONE (16:15)
[2022-07-18 17:11] LABS: CORONAVIRUS COVID-19 NAA NEGATIVE (NEGATIVE)
[2022-07-18] MEDS ORDERED: Atropine/Diphenoxylate 0.025-2.5 MG Tab PO PRN (18:14)
[2022-07-18] MEDS ORDERED: Glucagon,Human Recombinant 1 MG Vial IM PRN (18:14)
[2022-07-18] MEDS ORDERED: Triamcinolone Acetonide 0.1% Crm 15 GM Tube TOP PRN (18:14)
[2022-07-18] MEDS ORDERED: 50% Dextrose in Water 50 ML Syringe IVPUSH PRN (18:14)
[2022-07-18] MEDS ORDERED: Magnesium Hydroxide 400 MG/5 ML Susp 30 ML Cup PO PRN (18:14)
[2022-07-18] MEDS ORDERED: Insulin Lispro 100 Units/ML 3 ML Vial SUBCUT SCH (18:15)
[2022-07-18] MEDS ORDERED: Levofloxacin/Dextrose 5%-Water 500 MG in Premix Bag 1 BAG IV SCH ×4 (19:00)
[2022-07-18] MEDS ORDERED: Non-Formulary Medication 1 Each (Melatonin [Melatonin] 3 MG Capsule) PO SCH (21:00)
[2022-07-18] MEDS ORDERED: Nystatin Topical Powder 15 GM Bottle TOP SCH (21:00)
[2022-07-18] MEDS: Insulin Lispro 100 Unit/ML 3 ML KwikPen SUBCUT SCH (21:31)
[2022-07-18] MEDS: Insulin Glargine,Human Rec. Analog 100 Units/ML 3 ML Pen SUBCUT SCH (21:32)
[2022-07-18] MEDS: Apixaban 2.5 MG Tab PO SCH (22:49)
[2022-07-18] MEDS: Metoprolol Tartrate 25 MG Tab PO SCH (22:49)
[2022-07-18] MEDS: Melatonin 3 MG Tab PO SCH (22:49)
[2022-07-18] MEDS: Potassium Chloride 10 MEQ Cap.ER PO SCH (22:50)
[2022-07-19] MEDS: Insulin Lispro 100 Unit/ML 3 ML KwikPen SUBCUT SCH ×4 (08:28→21:57)
[2022-07-19] MEDS: Apixaban 2.5 MG Tab PO SCH ×3 (09:38→22:07)
[2022-07-19] MEDS: Cholecalciferol (Vitamin D3) 25 MCG Tab PO SCH ×2 (09:38→16:11)
[2022-07-19] MEDS: Metoprolol Tartrate 25 MG Tab PO SCH ×3 (09:38→22:07)
[2022-07-19] MEDS: Spironolactone 25 MG Tab PO SCH ×2 (09:38→16:11)
[2022-07-19] MEDS: Potassium Chloride 10 MEQ Cap.ER PO SCH ×4 (09:38→22:11)
[2022-07-19] MEDS: Dextrose 5%-0.9% NaCl 1,000 ML IV SCH (09:43)
[2022-07-19] MEDS: Nystatin Topical Powder 15 GM Bottle TOP SCH ×3 (09:44→22:01)
[2022-07-19] MEDS: Levofloxacin/Dextrose 5%-Water 250 MG in Premix Bag 1 BAG IV SCH (17:00)
[2022-07-19] MEDS: Insulin Glargine,Human Rec. Analog 100 Units/ML 3 ML Pen SUBCUT SCH (21:58)
[2022-07-19] MEDS: Melatonin 3 MG Tab PO SCH (22:11)
[2022-07-20] MEDS: Insulin Lispro 100 Unit/ML 3 ML KwikPen SUBCUT SCH ×4 (07:54→21:17)
[2022-07-20] MEDS: Nystatin Topical Powder 15 GM Bottle TOP SCH ×3 (09:30→21:06)
[2022-07-20] MEDS: Potassium Chloride 10 MEQ Cap.ER PO SCH ×4 (09:30→21:07)
[2022-07-20] MEDS: Metoprolol Tartrate 25 MG Tab PO SCH ×2 (09:34→21:06)
[2022-07-20] MEDS: Spironolactone 25 MG Tab PO SCH (09:34)
[2022-07-20] MEDS: Cholecalciferol (Vitamin D3) 25 MCG Tab PO SCH (09:38)
[2022-07-20] MEDS: Apixaban 2.5 MG Tab PO SCH ×2 (09:38→21:06)
[2022-07-20] MEDS: Dextrose 5%-0.9% NaCl 1,000 ML IV SCH ×2 (11:18→20:31)
[2022-07-20] MEDS: Levofloxacin/Dextrose 5%-Water 250 MG in Premix Bag 1 BAG IV SCH (17:03)
[2022-07-20] MEDS: Melatonin 3 MG Tab PO SCH (21:06)
[2022-07-20] MEDS: Insulin Glargine,Human Rec. Analog 100 Units/ML 3 ML Pen SUBCUT SCH (21:18)
[2022-07-21] MEDS: Acetaminophen 325 MG Tab PO PRN ×2 (00:36→10:32)
[2022-07-21] MEDS: Dextrose 5%-0.9% NaCl 1,000 ML IV SCH (04:27)
[2022-07-21] MEDS: Potassium Chloride 10 MEQ Cap.ER PO SCH ×2 (05:45→10:28)
[2022-07-21] MEDS: Insulin Lispro 100 Unit/ML 3 ML KwikPen SUBCUT SCH ×2 (07:45→11:39)
[2022-07-21] MEDS: Cholecalciferol (Vitamin D3) 25 MCG Tab PO SCH (08:43)
[2022-07-21] MEDS: Spironolactone 25 MG Tab PO SCH (08:43)
[2022-07-21] MEDS: Metoprolol Tartrate 25 MG Tab PO SCH (08:43)
[2022-07-21] MEDS: Nystatin Topical Powder 15 GM Bottle TOP SCH (08:44)
[2022-07-21] MEDS: Apixaban 2.5 MG Tab PO SCH (08:44)
[2022-07-21 10:54] VITALS: BP 140/65; PULSE 60
[2022-07-24 14:10] LABS: A/G RATIO 0.7 (0.7-1.7); ALBUMIN 2.4 g/dL (2.9-4.4); ALPHA-1-GLOBULIN 0.4 g/dL (0.0-0.4); ALPHA-2-GLOBULIN 1.1 g/dL (0.4-1.0); BETA GLOBULIN 0.9 g/dL (0.7-1.3); GAMMA GLOBULIN 0.9 g/dL (0.4-1.8); GLOBULIN, TOTAL 3.3 g/dL (2.2-3.9); M-SPIKE Not Observed g/dL (Not Observed); PROTEIN, TOTAL, SERUM 5.7 g/dL (6.0-8.5)
== END 2022-07-21 12:30 | disposition home or self-care (01) | DRG 872 ==
LOC: JP.ED 14:44 → JP.MS 18:07
PROVIDERS: ADMIT Internal Medicine; ATTEND Internal Medicine
DX: A41.52 Sepsis due to Pseudomonas (principal); E66.01 Morbid (severe) obesity due to excess calories; E11.9 Type 2 diabetes mellitus without complications; H54.7 Unspecified visual loss; I25.10 Atherosclerotic heart disease of native coronary artery without angina pectoris; Z20.822 Contact with and (suspected) exposure to COVID-19; M54.9 Dorsalgia, unspecified; G89.29 Other chronic pain; I50.9 Heart failure, unspecified; I11.0 Hypertensive heart disease with heart failure; K21.9 Gastro-esophageal reflux disease without esophagitis; R19.7 Diarrhea, unspecified; E86.0 Dehydration; Z88.8 Allergy status to other drugs, medicaments and biological substances; Z79.4 Long term (current) use of insulin; Z86.73 Personal history of transient ischemic attack (TIA), and cerebral infarction without residual deficits; Z99.3 Dependence on wheelchair; Z95.0 Presence of cardiac pacemaker; Z68.33 Body mass index [BMI] 33.0-33.9, adult
CPT/HCPCS: 0241U; 36415; 70450; 70450-26; 80048; 80053; 81001; 82947; 83605; 84165; 85025; 87040; 87086; 87088; 87186; 96361; 96365; 99285; 99285-25; A9270-GY; J0696; J1815; J1815-GY; J1956; J3490; J7030

== ENCOUNTER 2022-11-29 19:20 | Inpatient (IN) | payer MEDICARE ==
[2022-11-29] MEDS ORDERED: Ondansetron 4 MG/2 ML SDV IVPUSH ONE (19:50)
[2022-11-29 19:54] LABS: BASOPHILS ABSOLUTE AUTO 0.03 K/uL (0.00-0.10); BASOPHILS PERCENT AUTO 0.4 % (0.1-1.3); EOSINOPHILS ABSOLUTE AUTO 0.16 K/uL (0.00-0.40); HEMATOCRIT 48.6 % (38.4-49.7); HEMOGLOBIN 16.3 g/dL (12.9-16.9); IMMATURE GRAN ABSOLUTE AUTO 0.02 K/uL (0.00-0.23); IMMATURE GRAN PERCENT AUTO 0.3 % (0.0-0.7); LYMPHOCYTES PERCENT AUTO 15.2 % (11.4-47.7); MEAN CORPUSCULAR HEMOGLOBIN 28.1 pg (31.6-35.5); MEAN CORPUSCULAR HGB CONC 33.5 g/dL (31.6-35.5); MEAN CORPUSCULAR VOLUME 83.6 fL (81.4-99.0); MONOCYTES ABSOLUTE AUTO 0.81 K/uL (0.20-0.90); MONOCYTES PERCENT AUTO 10.2 % (3.3-12.6); NEUTROPHILS ABSOLUTE AUTO 5.69 K/uL (1.0-7.6); NEUTROPHILS PERCENT AUTO 71.9 % (40.0-78.1); PLATELET COUNT,PLT 233 K/uL (130-375); RED BLOOD CELL COUNT 5.81 M/uL (4.14-5.76); WHITE BLOOD CELL COUNT,WBC 7.9 K/uL (3.2-11.0)
[2022-11-29] MEDS ORDERED: Sodium Chloride 0.9% 1,000 ML IV SCH ×2 (20:00→22:30)
[2022-11-29 20:09] LABS: A/G RATIO 0.7 (1.2-2.2); ALANINE AMINOTRANSFERASE,ALT 13 U/L (12-78); ALBUMIN 3.2 g/dL (3.4-5.0); ALKALINE PHOSPHATASE 106 U/L (46-116); ASPARTATE AMNIOTRANSFERASE,AST 17 U/L (15-37); BILIRUBIN TOTAL 0.6 mg/dL (0.2-1.0); BLOOD UREA NITROGEN,BUN 10 mg/dL (7-18); CALCIUM 9.1 mg/dL (8.5-10.1); CARBON DIOXIDE,CO2 26 mmol/L (21-32); CHLORIDE,CL 98 mmol/L (100-108); CREATININE 1.2 mg/dL (0.8-1.3); ESTIMATED GFR 60 mL/min (>60); GLUCOSE RANDOM 173 mg/dL (74-106); POTASSIUM,K 3.3 mmol/L (3.6-5.2); PROTEIN TOTAL,TP 7.7 g/dL (6.4-8.2); SODIUM,NA 135 mmol/L (140-148)
[2022-11-29 20:10] LABS: ANION GAP 14.3 mmol/L (5.0-14.0)
[2022-11-29 20:11] LABS: LACTIC ACID 3.1 mmol/L (0.4-2.0)
[2022-11-29] MEDS ORDERED: cefTRIAXone 2 GM in Sodium Chloride 0.9% 50 ML IV ONE (20:19)
[2022-11-29] MEDS ORDERED: Glucagon,Human Recombinant 1 MG Vial IM PRN (22:29)
[2022-11-29] MEDS ORDERED: 50% Dextrose in Water 50 ML Syringe IVPUSH PRN (22:29)
[2022-11-29 23:04] LABS: APPEARANCE,URINE SLIGHTLY CLOUDY (CLEAR); BILIRUBIN,URINE NEGATIVE (NEGATIVE); COLOR,URINE YELLOW (YELLOW); GLUCOSE,URINE NEGATIVE (NEGATIVE); KETONES,URINE NEGATIVE (NEGATIVE); LEUKOCYTE ESTERASE,URINE SMALL (NEGATIVE); NITRITE,URINE NEGATIVE (NEGATIVE); OCCULT BLOOD,URINE NEGATIVE (NEGATIVE); PH,URINE 5.5 (5.0-8.0); PROTEIN,URINE NEGATIVE (NEGATIVE); UROBILINOGEN,URINE 0.2 EU/dL (0.2-1.0)
[2022-11-29 23:10] LABS: RBC,URINE 0-5 (0-5); WBC,URINE 50-75 (0-5)
[2022-11-29 23:11] LABS: AMORPHOUS SEDIMENT,URINE FEW; BACTERIA,URINE MANY; EPITHELIAL CELLS,URINE RARE; MUCUS,URINE RARE
[2022-11-30 05:20] LABS: BASOPHILS ABSOLUTE AUTO 0.03 K/uL (0.00-0.10); BASOPHILS PERCENT AUTO 0.4 % (0.1-1.3); EOSINOPHILS PERCENT AUTO 2.6 % (0.0-5.4); HEMATOCRIT 45.5 % (38.4-49.7); IMMATURE GRAN ABSOLUTE AUTO 0.03 K/uL (0.00-0.23); IMMATURE GRAN PERCENT AUTO 0.4 % (0.0-0.7); LYMPHOCYTES ABSOLUTE AUTO 1.79 K/uL (0.8-3.3); LYMPHOCYTES PERCENT AUTO 23.7 % (11.4-47.7); MEAN CORPUSCULAR HEMOGLOBIN 28.2 pg (31.6-35.5); MEAN CORPUSCULAR VOLUME 85.5 fL (81.4-99.0); MONOCYTES ABSOLUTE AUTO 0.87 K/uL (0.20-0.90); MONOCYTES PERCENT AUTO 11.5 % (3.3-12.6); NEUTROPHILS ABSOLUTE AUTO 4.63 K/uL (1.0-7.6); NEUTROPHILS PERCENT AUTO 61.4 % (40.0-78.1); PLATELET COUNT,PLT 194 K/uL (130-375); RED BLOOD CELL COUNT 5.32 M/uL (4.14-5.76); WHITE BLOOD CELL COUNT,WBC 7.6 K/uL (3.2-11.0)
[2022-11-30 05:40] LABS: A/G RATIO 0.7 (1.2-2.2); ALANINE AMINOTRANSFERASE,ALT 9 U/L (12-78); ALBUMIN 2.7 g/dL (3.4-5.0); ALKALINE PHOSPHATASE 91 U/L (46-116); ASPARTATE AMNIOTRANSFERASE,AST 18 U/L (15-37); BILIRUBIN TOTAL 0.5 mg/dL (0.2-1.0); BLOOD UREA NITROGEN,BUN 9 mg/dL (7-18); CALCIUM 8.5 mg/dL (8.5-10.1); CARBON DIOXIDE,CO2 28 mmol/L (21-32); CHLORIDE,CL 101 mmol/L (100-108); EST CRCL DRUG DOSING (CG) 56.95 mL/min; ESTIMATED GFR 75 mL/min (>60); GLUCOSE RANDOM 128 mg/dL (74-106); POTASSIUM,K 3.4 mmol/L (3.6-5.2); PROTEIN TOTAL,TP 6.6 g/dL (6.4-8.2); SODIUM,NA 138 mmol/L (140-148)
[2022-11-30 05:44] LABS: ANION GAP 12.4 mmol/L (5.0-14.0)
[2022-11-30] MEDS ORDERED: Apixaban 2.5 MG Tab PO SCH (09:00)
[2022-11-30] MEDS ORDERED: Metoprolol Tartrate 50 MG Tab PO SCH (09:00)
[2022-11-30] MEDS: Insulin Lispro 100 Unit/ML 3 ML KwikPen SUBCUT SCH ×4 (09:31→20:57)
[2022-11-30] MEDS: Nystatin Topical Powder 15 GM Bottle TOP SCH ×3 (10:48→21:07)
[2022-11-30] MEDS: Metoprolol Tartrate 25 MG Tab PO SCH ×2 (10:49→21:07)
[2022-11-30] MEDS: Potassium Chloride 10 MEQ Cap.ER PO SCH ×3 (10:49→21:09)
[2022-11-30] MEDS: Spironolactone 25 MG Tab PO SCH (10:49)
[2022-11-30] MEDS: Cholecalciferol (Vitamin D3) 25 MCG Tab PO SCH (10:50)
[2022-11-30] MEDS ORDERED: Insulin Glargine,Human Rec. Analog 100 Units/ML 3 ML Pen SUBCUT SCH (21:00)
[2022-11-30] MEDS: PAXLOVID PO SCH (21:03)
[2022-11-30] MEDS: Insulin Glargine,Human Rec. Analog 100 Units/ML 3 ML Pen SUBCUT SCH (21:10)
[2022-12-01 06:22] LABS: A/G RATIO 0.7 (1.2-2.2); ALANINE AMINOTRANSFERASE,ALT 11 U/L (12-78); ALBUMIN 2.7 g/dL (3.4-5.0); ALKALINE PHOSPHATASE 93 U/L (46-116); ASPARTATE AMNIOTRANSFERASE,AST 15 U/L (15-37); BILIRUBIN TOTAL 0.6 mg/dL (0.2-1.0); BLOOD UREA NITROGEN,BUN 7 mg/dL (7-18); CALCIUM 8.5 mg/dL (8.5-10.1); CARBON DIOXIDE,CO2 28 mmol/L (21-32); CHLORIDE,CL 104 mmol/L (100-108); EST CRCL DRUG DOSING (CG) 56.76 mL/min; ESTIMATED GFR 75 mL/min (>60); GLUCOSE RANDOM 96 mg/dL (74-106); POTASSIUM,K 3.1 mmol/L (3.6-5.2); PROTEIN TOTAL,TP 6.6 g/dL (6.4-8.2); SODIUM,NA 140 mmol/L (140-148)
[2022-12-01 06:34] LABS: ANION GAP 11.1 mmol/L (5.0-14.0)
[2022-12-01] MEDS: Insulin Lispro 100 Unit/ML 3 ML KwikPen SUBCUT SCH ×4 (07:59→21:18)
[2022-12-01] MEDS: Nystatin Topical Powder 15 GM Bottle TOP SCH ×3 (08:30→20:50)
[2022-12-01] MEDS: Potassium Chloride 10 MEQ Cap.ER PO SCH ×2 (13:33→20:39)
[2022-12-01] MEDS: Cholecalciferol (Vitamin D3) 25 MCG Tab PO SCH (13:33)
[2022-12-01] MEDS: Apixaban 2.5 MG Tab PO SCH ×2 (13:33→13:57)
[2022-12-01] MEDS: Spironolactone 25 MG Tab PO SCH (13:33)
[2022-12-01] MEDS: PAXLOVID PO SCH ×4 (13:33→20:39)
[2022-12-01] MEDS: Metoprolol Tartrate 25 MG Tab PO SCH ×2 (13:33→20:41)
[2022-12-01] MEDS: Insulin Glargine,Human Rec. Analog 100 Units/ML 3 ML Pen SUBCUT SCH (21:19)
[2022-12-02] MEDS: Insulin Lispro 100 Unit/ML 3 ML KwikPen SUBCUT SCH ×4 (07:42→21:14)
[2022-12-02] MEDS: PAXLOVID PO SCH ×3 (10:04→21:54)
[2022-12-02] MEDS: Cholecalciferol (Vitamin D3) 25 MCG Tab PO SCH (10:05)
[2022-12-02] MEDS: Apixaban 2.5 MG Tab PO SCH (10:05)
[2022-12-02] MEDS: Potassium Chloride 10 MEQ Cap.ER PO SCH ×3 (10:05→21:54)
[2022-12-02] MEDS: Metoprolol Tartrate 25 MG Tab PO SCH ×3 (10:05→21:52)
[2022-12-02] MEDS: Spironolactone 25 MG Tab PO SCH (10:05)
[2022-12-02] MEDS: Nystatin Topical Powder 15 GM Bottle TOP SCH ×3 (10:06→21:22)
[2022-12-02] MEDS ORDERED: Sodium Chloride 0.9% 10 ML Syringe FLUSH PRN (13:58)
[2022-12-02] MEDS: Sodium Chloride 0.9% 1,000 ML IV SCH ×2 (14:48→22:55)
[2022-12-02] MEDS: Insulin Glargine,Human Rec. Analog 100 Units/ML 3 ML Pen SUBCUT SCH (21:28)
[2022-12-03] MEDS: Insulin Lispro 100 Unit/ML 3 ML KwikPen SUBCUT SCH ×3 (08:36→16:53)
[2022-12-03] MEDS: Potassium Chloride 10 MEQ Cap.ER PO SCH (08:38)
[2022-12-03] MEDS: PAXLOVID PO SCH (08:38)
[2022-12-03] MEDS: Apixaban 2.5 MG Tab PO SCH (08:39)
[2022-12-03] MEDS: Spironolactone 25 MG Tab PO SCH (08:39)
[2022-12-03] MEDS: Nystatin Topical Powder 15 GM Bottle TOP SCH ×2 (08:39→15:15)
[2022-12-03] MEDS: Metoprolol Tartrate 25 MG Tab PO SCH (08:39)
[2022-12-03] MEDS: Cholecalciferol (Vitamin D3) 25 MCG Tab PO SCH (08:40)
[2022-12-03 10:23] LABS: BASOPHILS ABSOLUTE AUTO 0.03 K/uL (0.00-0.10); BASOPHILS PERCENT AUTO 0.5 % (0.1-1.3); EOSINOPHILS ABSOLUTE AUTO 0.31 K/uL (0.00-0.40); EOSINOPHILS PERCENT AUTO 4.7 % (0.0-5.4); HEMATOCRIT 44.5 % (38.4-49.7); HEMOGLOBIN 14.7 g/dL (12.9-16.9); IMMATURE GRAN PERCENT AUTO 0.3 % (0.0-0.7); LYMPHOCYTES ABSOLUTE AUTO 1.76 K/uL (0.8-3.3); LYMPHOCYTES PERCENT AUTO 26.5 % (11.4-47.7); MEAN CORPUSCULAR HEMOGLOBIN 28.1 pg (31.6-35.5); MEAN CORPUSCULAR VOLUME 84.9 fL (81.4-99.0); MONOCYTES ABSOLUTE AUTO 0.46 K/uL (0.20-0.90); MONOCYTES PERCENT AUTO 6.9 % (3.3-12.6); NEUTROPHILS ABSOLUTE AUTO 4.07 K/uL (1.0-7.6); NEUTROPHILS PERCENT AUTO 61.1 % (40.0-78.1); PLATELET COUNT,PLT 221 K/uL (130-375); RED BLOOD CELL COUNT 5.24 M/uL (4.14-5.76); WHITE BLOOD CELL COUNT,WBC 6.7 K/uL (3.2-11.0)
[2022-12-03 10:27] LABS: IMMATURE GRAN ABSOLUTE AUTO 0.02 K/uL (0.00-0.23)
[2022-12-03 10:37] LABS: CALCIUM 8.4 mg/dL (8.5-10.1); CREATININE 0.9 mg/dL (0.8-1.3); EST CRCL DRUG DOSING (CG) 63.07 mL/min
[2022-12-03 10:41] LABS: ANION GAP 12.6 mmol/L (5.0-14.0); POTASSIUM,K 2.6 mmol/L (3.6-5.2)
[2022-12-03] MEDS ORDERED: Sodium Chloride 0.9% 10 ML Syringe FLUSH PRN (11:06)
[2022-12-03] MEDS: Potassium Chloride 10 MEQ in Premix Bag 1 BAG IV SCH ×6 (11:27→16:54)
[2022-12-03 17:39] VITALS: BP 137/49; PULSE 60
== END 2022-12-03 19:15 | disposition home or self-care (01) | DRG 871 ==
LOC: JP.ED 19:20 → JP.MS 22:21
PROVIDERS: ADMIT Internal Medicine; ATTEND Internal Medicine
DX: A41.89 Other specified sepsis (principal); U07.1 COVID-19; A41.9 Sepsis, unspecified organism; E66.9 Obesity, unspecified; E86.0 Dehydration; E11.9 Type 2 diabetes mellitus without complications; I25.10 Atherosclerotic heart disease of native coronary artery without angina pectoris; I11.0 Hypertensive heart disease with heart failure; I50.9 Heart failure, unspecified; K21.9 Gastro-esophageal reflux disease without esophagitis; Z79.4 Long term (current) use of insulin; Z79.01 Long term (current) use of anticoagulants; Z79.899 Other long term (current) drug therapy; Z95.0 Presence of cardiac pacemaker; Z68.31 Body mass index [BMI] 31.0-31.9, adult; Z88.8 Allergy status to other drugs, medicaments and biological substances; Z98.890 Other specified postprocedural states; Z95.1 Presence of aortocoronary bypass graft; Z95.5 Presence of coronary angioplasty implant and graft; Z86.73 Personal history of transient ischemic attack (TIA), and cerebral infarction without residual deficits
CPT/HCPCS: 71045 ×2; 80053; 82947; 83605; 85025; J2405; J7030; U0002; 36415; 80048; 81001; 84132; 87493; 96361; 96374; 97163-GP; 99285-25; A9270-GY; J1815; J1815-GY; J3480

== ENCOUNTER 2023-04-16 02:40 | Inpatient (IN) | payer MEDICARE ==
[2023-04-16] MEDS ORDERED: cefTRIAXone 1 GM in Sodium Chloride 0.9% 50 ML IV ONE (03:15)
[2023-04-16 03:23] LABS: BASOPHILS ABSOLUTE AUTO 0.03 K/uL (0.00-0.10); BASOPHILS PERCENT AUTO 0.2 % (0.1-1.3); EOSINOPHILS ABSOLUTE AUTO 0.02 K/uL (0.00-0.40); EOSINOPHILS PERCENT AUTO 0.1 % (0.0-5.4); HEMATOCRIT 44.1 % (38.4-49.7); HEMOGLOBIN 14.2 g/dL (12.9-16.9); IMMATURE GRAN ABSOLUTE AUTO 0.04 K/uL (0.00-0.23); IMMATURE GRAN PERCENT AUTO 0.3 % (0.0-0.7); LYMPHOCYTES ABSOLUTE AUTO 0.45 K/uL (0.8-3.3); LYMPHOCYTES PERCENT AUTO 2.9 % (11.4-47.7); MEAN CORPUSCULAR HEMOGLOBIN 28.2 pg (31.6-35.5); MEAN CORPUSCULAR HGB CONC 32.2 g/dL (31.6-35.5); MEAN CORPUSCULAR VOLUME 87.7 fL (81.4-99.0); MONOCYTES ABSOLUTE AUTO 0.45 K/uL (0.20-0.90); MONOCYTES PERCENT AUTO 2.9 % (3.3-12.6); NEUTROPHILS ABSOLUTE AUTO 14.72 K/uL (1.0-7.6); NEUTROPHILS PERCENT AUTO 93.6 % (40.0-78.1); PLATELET COUNT,PLT 190 K/uL (130-375); RED BLOOD CELL COUNT 5.03 M/uL (4.14-5.76); WHITE BLOOD CELL COUNT,WBC 15.7 K/uL (3.2-11.0)
[2023-04-16 03:41] LABS: A/G RATIO 0.6 (1.2-2.2); ALANINE AMINOTRANSFERASE,ALT 14 U/L (12-78); ALBUMIN 2.9 g/dL (3.4-5.0); ALKALINE PHOSPHATASE 130 U/L (46-116); ANION GAP 9.5 mmol/L (5.0-14.0); ASPARTATE AMNIOTRANSFERASE,AST 20 U/L (15-37); BILIRUBIN TOTAL 0.7 mg/dL (0.2-1.0); BLOOD UREA NITROGEN,BUN 25 mg/dL (7-18); CALCIUM 8.9 mg/dL (8.5-10.1); CARBON DIOXIDE,CO2 28 mmol/L (21-32); CHLORIDE,CL 104 mmol/L (100-108); CREATININE 1.2 mg/dL (0.8-1.3); EST CRCL DRUG DOSING (CG) 43.61 mL/min; ESTIMATED GFR 60 mL/min (>60); GLUCOSE RANDOM 152 mg/dL (74-106); POTASSIUM,K 4.4 mmol/L (3.6-5.2); PROTEIN TOTAL,TP 7.5 g/dL (6.4-8.2); SODIUM,NA 141 mmol/L (140-148)
[2023-04-16 03:45] LABS: APPEARANCE,URINE CLEAR (CLEAR); BILIRUBIN,URINE NEGATIVE (NEGATIVE); COLOR,URINE YELLOW (YELLOW); GLUCOSE,URINE NEGATIVE (NEGATIVE); KETONES,URINE NEGATIVE (NEGATIVE); LEUKOCYTE ESTERASE,URINE NEGATIVE (NEGATIVE); NITRITE,URINE NEGATIVE (NEGATIVE); OCCULT BLOOD,URINE NEGATIVE (NEGATIVE); PH,URINE 5.5 (5.0-8.0); PROTEIN,URINE NEGATIVE (NEGATIVE); UROBILINOGEN,URINE 0.2 EU/dL (0.2-1.0)
[2023-04-16 03:47] LABS: CORONAVIRUS COVID-19 NAA NEGATIVE (NEGATIVE); INFLUENZA A NAA POSITIVE (NEGATIVE); INFLUENZA B NAA NEGATIVE (NEGATIVE); RESPIRATORY SYNCYTIAL VIR NAA NEGATIVE (NEGATIVE)
[2023-04-16 03:53] LABS: AMORPHOUS SEDIMENT,URINE FEW; BACTERIA,URINE FEW; EPITHELIAL CELLS,URINE FEW; MUCUS,URINE NOT SEEN; RBC,URINE 0-5 (0-5); WBC,URINE 0-5 (0-5)
[2023-04-16] MEDS ORDERED: Atropine/Diphenoxylate 0.025-2.5 MG Tab PO PRN (08:41)
[2023-04-16] MEDS ORDERED: Acetaminophen 325 MG Tab PO PRN (08:41)
[2023-04-16] MEDS ORDERED: Magnesium Hydroxide 400 MG/5 ML Susp 30 ML Cup PO PRN (08:41)
[2023-04-16] MEDS ORDERED: 50% Dextrose in Water 50 ML Syringe IVPUSH PRN ×2 (08:41→10:16)
[2023-04-16] MEDS ORDERED: Glucagon,Human Recombinant 1 MG Vial IM PRN ×2 (08:41→10:16)
[2023-04-16] MEDS: Sodium Chloride 0.9% 1,000 ML IV SCH ×2 (10:19→17:58)
[2023-04-16] MEDS: Spironolactone 25 MG Tab PO SCH (11:13)
[2023-04-16] MEDS: Hydrochlorothiazide 25 MG Tab PO SCH (11:13)
[2023-04-16] MEDS: Apixaban 2.5 MG Tab PO SCH ×2 (11:13→20:33)
[2023-04-16] MEDS: LORazepam 1 MG Tab PO SCH ×3 (11:13→20:33)
[2023-04-16] MEDS: Aspirin 81 MG Tab.EC PO SCH (11:13)
[2023-04-16] MEDS: Potassium Chloride 10 MEQ Cap.ER PO SCH ×3 (11:14→20:33)
[2023-04-16] MEDS: Sennosides/Docusate Sodium 50-8.6 MG Tab PO SCH (11:14)
[2023-04-16] MEDS: Nystatin Topical Powder 15 GM Bottle TOP SCH ×3 (11:14→20:32)
[2023-04-16] MEDS: Cholecalciferol (Vitamin D3) 25 MCG Tab PO SCH (11:14)
[2023-04-16] MEDS: Metoprolol Tartrate 25 MG Tab PO SCH ×2 (11:14→20:33)
[2023-04-16] MEDS ORDERED: Oseltamivir 75 MG Cap PO ONE (12:00)
[2023-04-16] MEDS: Insulin Lispro 100 Unit/ML 3 ML KwikPen SUBCUT SCH ×3 (12:53→21:16)
[2023-04-16] MEDS: Acetaminophen 650 MG Supp RECTAL PRN ×2 (14:42→20:32)
[2023-04-16] MEDS: Oseltamivir 30 MG Cap PO SCH (20:33)
[2023-04-16] MEDS: Melatonin 3 MG Tab PO SCH (20:33)
[2023-04-16] MEDS: cefTRIAXone 1 GM in Sodium Chloride 0.9% 50 ML IV SCH (20:36)
[2023-04-16] MEDS ORDERED: Insulin Glargine,Human Rec. Analog 100 Units/ML 3 ML Pen SUBCUT SCH (21:00)
[2023-04-17] MEDS: Sodium Chloride 0.9% 1,000 ML IV SCH ×2 (02:31→10:59)
[2023-04-17 05:29] LABS: BASOPHILS ABSOLUTE AUTO 0.03 K/uL (0.00-0.10); BASOPHILS PERCENT AUTO 0.3 % (0.1-1.3); HEMOGLOBIN 12.3 g/dL (12.9-16.9); IMMATURE GRAN ABSOLUTE AUTO 0.04 K/uL (0.00-0.23); IMMATURE GRAN PERCENT AUTO 0.5 % (0.0-0.7); LYMPHOCYTES ABSOLUTE AUTO 0.65 K/uL (0.8-3.3); LYMPHOCYTES PERCENT AUTO 7.5 % (11.4-47.7); MEAN CORPUSCULAR HEMOGLOBIN 28.1 pg (31.6-35.5); MEAN CORPUSCULAR HGB CONC 32.4 g/dL (31.6-35.5); MEAN CORPUSCULAR VOLUME 86.8 fL (81.4-99.0); MONOCYTES ABSOLUTE AUTO 0.75 K/uL (0.20-0.90); MONOCYTES PERCENT AUTO 8.6 % (3.3-12.6); NEUTROPHILS ABSOLUTE AUTO 7.22 K/uL (1.0-7.6); NEUTROPHILS PERCENT AUTO 83.1 % (40.0-78.1); PLATELET COUNT,PLT 149 K/uL (130-375); RED BLOOD CELL COUNT 4.38 M/uL (4.14-5.76); WHITE BLOOD CELL COUNT,WBC 8.7 K/uL (3.2-11.0)
[2023-04-17 05:46] LABS: CALCIUM 8.5 mg/dL (8.5-10.1); CREATININE 1.4 mg/dL (0.8-1.3); EST CRCL DRUG DOSING (CG) 38.68 mL/min; POTASSIUM,K 3.7 mmol/L (3.6-5.2)
[2023-04-17 05:58] LABS: ANION GAP 13.7 mmol/L (5.0-14.0)
[2023-04-17] MEDS: Insulin Lispro 100 Unit/ML 3 ML KwikPen SUBCUT SCH ×4 (10:17→20:44)
[2023-04-17] MEDS: Metoprolol Tartrate 25 MG Tab PO SCH ×2 (10:18→20:33)
[2023-04-17] MEDS: Hydrochlorothiazide 25 MG Tab PO SCH (10:18)
[2023-04-17] MEDS: Sennosides/Docusate Sodium 50-8.6 MG Tab PO SCH (10:18)
[2023-04-17] MEDS: Cholecalciferol (Vitamin D3) 25 MCG Tab PO SCH (10:18)
[2023-04-17] MEDS: Oseltamivir 30 MG Cap PO SCH ×2 (10:18→20:34)
[2023-04-17] MEDS: Aspirin 81 MG Tab.EC PO SCH (10:18)
[2023-04-17] MEDS: Potassium Chloride 10 MEQ Cap.ER PO SCH ×3 (10:18→20:34)
[2023-04-17] MEDS: Apixaban 2.5 MG Tab PO SCH ×2 (10:18→20:33)
[2023-04-17] MEDS: Spironolactone 25 MG Tab PO SCH (10:19)
[2023-04-17] MEDS: LORazepam 1 MG Tab PO SCH ×3 (10:19→20:33)
[2023-04-17] MEDS: Nystatin Topical Powder 15 GM Bottle TOP SCH ×3 (11:20→20:44)
[2023-04-17] MEDS: Melatonin 3 MG Tab PO SCH (20:34)
[2023-04-17] MEDS: cefTRIAXone 1 GM in Sodium Chloride 0.9% 50 ML IV SCH (20:43)
[2023-04-17] MEDS ORDERED: Sodium Chloride 0.9% 1,000 ML IV SCH (23:30)
[2023-04-18 06:12] LABS: BASOPHILS ABSOLUTE AUTO 0.03 K/uL (0.00-0.10); BASOPHILS PERCENT AUTO 0.5 % (0.1-1.3); EOSINOPHILS ABSOLUTE AUTO 0.03 K/uL (0.00-0.40); EOSINOPHILS PERCENT AUTO 0.5 % (0.0-5.4); HEMATOCRIT 37.6 % (38.4-49.7); IMMATURE GRAN PERCENT AUTO 0.3 % (0.0-0.7); LYMPHOCYTES ABSOLUTE AUTO 0.99 K/uL (0.8-3.3); LYMPHOCYTES PERCENT AUTO 16.5 % (11.4-47.7); MEAN CORPUSCULAR HEMOGLOBIN 28.2 pg (31.6-35.5); MEAN CORPUSCULAR HGB CONC 31.9 g/dL (31.6-35.5); MEAN CORPUSCULAR VOLUME 88.5 fL (81.4-99.0); MONOCYTES ABSOLUTE AUTO 0.56 K/uL (0.20-0.90); MONOCYTES PERCENT AUTO 9.3 % (3.3-12.6); NEUTROPHILS ABSOLUTE AUTO 4.38 K/uL (1.0-7.6); NEUTROPHILS PERCENT AUTO 72.9 % (40.0-78.1); PLATELET COUNT,PLT 143 K/uL (130-375); RED BLOOD CELL COUNT 4.25 M/uL (4.14-5.76)
[2023-04-18 06:18] LABS: IMMATURE GRAN ABSOLUTE AUTO 0.02 K/uL (0.00-0.23)
[2023-04-18 06:24] LABS: CALCIUM 8.4 mg/dL (8.5-10.1); CREATININE 1.3 mg/dL (0.8-1.3); EST CRCL DRUG DOSING (CG) 41.65 mL/min; POTASSIUM,K 3.2 mmol/L (3.6-5.2)
[2023-04-18 06:47] LABS: ANION GAP 12.2 mmol/L (5.0-14.0)
[2023-04-18] MEDS: Insulin Lispro 100 Unit/ML 3 ML KwikPen SUBCUT SCH ×4 (12:06→20:08)
[2023-04-18] MEDS: Spironolactone 25 MG Tab PO SCH (12:07)
[2023-04-18] MEDS: Apixaban 2.5 MG Tab PO SCH ×2 (12:07→20:09)
[2023-04-18] MEDS: LORazepam 1 MG Tab PO SCH ×3 (12:07→20:09)
[2023-04-18] MEDS: Nystatin Topical Powder 15 GM Bottle TOP SCH ×3 (12:08→20:10)
[2023-04-18] MEDS: Metoprolol Tartrate 25 MG Tab PO SCH ×2 (12:08→20:09)
[2023-04-18] MEDS: Sennosides/Docusate Sodium 50-8.6 MG Tab PO SCH (12:08)
[2023-04-18] MEDS: Hydrochlorothiazide 25 MG Tab PO SCH (12:08)
[2023-04-18] MEDS: Potassium Chloride 10 MEQ Cap.ER PO SCH ×3 (12:08→20:11)
[2023-04-18] MEDS: Cholecalciferol (Vitamin D3) 25 MCG Tab PO SCH (12:08)
[2023-04-18] MEDS: Oseltamivir 30 MG Cap PO SCH ×2 (12:08→20:11)
[2023-04-18] MEDS: Aspirin 81 MG Tab.EC PO SCH (12:08)
[2023-04-18] MEDS: Morphine 10 MG/0.5 ML Oral Syringe PO PRN ×2 (14:20→20:37)
[2023-04-18] MEDS: Melatonin 3 MG Tab PO SCH (20:10)
[2023-04-18] MEDS: cefTRIAXone 1 GM in Sodium Chloride 0.9% 50 ML IV SCH (20:11)
[2023-04-19] MEDS: Insulin Lispro 100 Unit/ML 3 ML KwikPen SUBCUT SCH ×4 (07:38→21:06)
[2023-04-19] MEDS: Hydrochlorothiazide 25 MG Tab PO SCH (08:19)
[2023-04-19] MEDS: Apixaban 2.5 MG Tab PO SCH ×2 (08:19→21:07)
[2023-04-19] MEDS: Metoprolol Tartrate 25 MG Tab PO SCH ×2 (08:19→21:07)
[2023-04-19] MEDS: LORazepam 1 MG Tab PO SCH ×3 (08:19→21:07)
[2023-04-19] MEDS: Aspirin 81 MG Tab.EC PO SCH (08:19)
[2023-04-19] MEDS: Spironolactone 25 MG Tab PO SCH (08:19)
[2023-04-19] MEDS: Cholecalciferol (Vitamin D3) 25 MCG Tab PO SCH (08:20)
[2023-04-19] MEDS: Sennosides/Docusate Sodium 50-8.6 MG Tab PO SCH (08:20)
[2023-04-19] MEDS: Oseltamivir 30 MG Cap PO SCH ×2 (08:20→21:07)
[2023-04-19] MEDS: Potassium Chloride 10 MEQ Cap.ER PO SCH ×3 (08:20→21:07)
[2023-04-19] MEDS: Nystatin Topical Powder 15 GM Bottle TOP SCH ×3 (08:25→21:05)
[2023-04-19] MEDS: Potassium Chloride 10 MEQ in Premix Bag 1 BAG IV SCH ×4 (09:45→13:46)
[2023-04-19 16:24] LABS: CALCIUM 8.1 mg/dL (8.5-10.1); EST CRCL DRUG DOSING (CG) 54.15 mL/min; POTASSIUM,K 3.9 mmol/L (3.6-5.2)
[2023-04-19 16:25] LABS: ANION GAP 14.9 mmol/L (5.0-14.0)
[2023-04-19] MEDS: Sodium Chloride 0.9% 1,000 ML IV SCH (20:52)
[2023-04-19] MEDS: cefTRIAXone 1 GM in Sodium Chloride 0.9% 50 ML IV SCH (20:53)
[2023-04-19] MEDS: Melatonin 3 MG Tab PO SCH (21:07)
[2023-04-20] MEDS: Sodium Chloride 0.9% 1,000 ML IV SCH (05:50)
[2023-04-20] MEDS: Insulin Lispro 100 Unit/ML 3 ML KwikPen SUBCUT SCH ×2 (08:20→12:31)
[2023-04-20] MEDS: LORazepam 1 MG Tab PO SCH ×2 (08:20→14:09)
[2023-04-20] MEDS: Spironolactone 25 MG Tab PO SCH (08:20)
[2023-04-20] MEDS: Apixaban 2.5 MG Tab PO SCH (08:21)
[2023-04-20] MEDS: Metoprolol Tartrate 25 MG Tab PO SCH (08:21)
[2023-04-20] MEDS: Nystatin Topical Powder 15 GM Bottle TOP SCH ×2 (08:21→14:10)
[2023-04-20] MEDS: Potassium Chloride 10 MEQ Cap.ER PO SCH ×2 (08:21→14:10)
[2023-04-20] MEDS: Sennosides/Docusate Sodium 50-8.6 MG Tab PO SCH (08:21)
[2023-04-20] MEDS: Cholecalciferol (Vitamin D3) 25 MCG Tab PO SCH (08:21)
[2023-04-20] MEDS: Oseltamivir 30 MG Cap PO SCH (08:21)
[2023-04-20] MEDS: Hydrochlorothiazide 25 MG Tab PO SCH (08:21)
[2023-04-20] MEDS: Aspirin 81 MG Tab.EC PO SCH (08:21)
[2023-04-20 12:16] VITALS: BP 126/56; PULSE 59
[2023-04-20] MEDS: Acetaminophen 650 MG Supp RECTAL PRN (14:08)
== END 2023-04-20 14:30 | disposition home or self-care (01) | DRG 195 ==
LOC: JP.ED 02:40 → JP.MS 08:52
PROVIDERS: ADMIT Internal Medicine; ATTEND Internal Medicine
DX: I67.2 Cerebral atherosclerosis (principal); J10.1 Influenza due to other identified influenza virus with other respiratory manifestations; R53.1 Weakness; I25.10 Atherosclerotic heart disease of native coronary artery without angina pectoris; I50.9 Heart failure, unspecified; E66.9 Obesity, unspecified; K21.9 Gastro-esophageal reflux disease without esophagitis; M54.9 Dorsalgia, unspecified; Z66 Do not resuscitate; G89.29 Other chronic pain; E11.9 Type 2 diabetes mellitus without complications; E66.01 Morbid (severe) obesity due to excess calories; D72.829 Elevated white blood cell count, unspecified; Z88.8 Allergy status to other drugs, medicaments and biological substances; Z79.4 Long term (current) use of insulin; Z79.01 Long term (current) use of anticoagulants; Z79.82 Long term (current) use of aspirin; Z79.899 Other long term (current) drug therapy; Z95.0 Presence of cardiac pacemaker; Z95.1 Presence of aortocoronary bypass graft; Z86.73 Personal history of transient ischemic attack (TIA), and cerebral infarction without residual deficits; Z86.16 Personal history of COVID-19; Z68.29 Body mass index [BMI] 29.0-29.9, adult; Z95.5 Presence of coronary angioplasty implant and graft; Z11.52 Encounter for screening for COVID-19
CPT/HCPCS: 0241U; 36415; 71045; 80048; 80053; 81001; 82947; 83605; 85025; 87040; 96365; 99284; 99285; A9270-GY; C1758; J0696; J1815; J1815-GY; J3480; J3490; J7030